=== PATIENT | female | born 1975 | race Caucasian/White ===

== ENCOUNTER 2016-10-05 18:08 | Inpatient (IN) | payer MEDICARE ==
[2016-10-05] MEDS ORDERED: NS 0.9% 1000 ML* 1,000 ML IV ONE (19:45)
[2016-10-05] MEDS ORDERED: Ondansetron INJ* 2 MG/ML VIAL IV ONE ×2 (19:46→23:01)
[2016-10-05] MEDS ORDERED: HYDROmorphone* 1 MG/ML 1 ML SYR IV SLOW PU ONE ×2 (19:46→23:00)
[2016-10-05 20:10] LABS: Hematocrit 42 % (35-47); Hemoglobin 12.9 g/dl (12.0-16.0); Mean Corpuscular HGB Conc 31 g/dl (31-36); Mean Corpuscular Hemoglobin 23 pg (27-31); Mean Corpuscular Volume 74 fL (80-97); Mean Platelet Volume 10 um3 (7.4-10.4); Red Blood Count 5.68 10^6/ul (4.0-5.4); Red Cell Distribution Width 18 % (10.5-15); White Blood Count 13.1 10^3/ul (3.5-10.8)
--- NOTE | 2016-10-05 20:14 | ED ---
Abdominal Pain/Female - HPI Summary HPI Summary: 41F presents with severe periumbilical pain for a day. She has had previous appendectomy, gallbladder removal, hysterectomy. She denies any nausea, vomiting, diarrhea, constipation, flank pain, dysuria, or hematuria. She has never had this pain before. She denies any chest pain or SOB. She has had a stroke previously and is on plavix. She denies any previous bowel obstructions. She admits to a decrease in appetite. She denies any fever. She states her pain is sharp in nature. She has not taken anything for pain. - History of Current Complaint Chief Complaint: EDAbdPain Stated Complaint: ABD PAIN Time Seen by Provider: 10/05/16 19:35 Hx Last Menstrual Period: 08/24/13 Pain Intensity: 8 Allergies/Adverse Reactions: Allergies Allergy/AdvReac Type Severity Reaction Status Date / Time Buprenorphine [From Butrans] Allergy Rash Verified 08/31/16 13:09 Morphine AdvReac Intermediate Nausea Verified 08/31/16 13:09 PMH/Surg Hx/FS Hx/Imm Hx Endocrine/Hematology History: Reports: Hx Anticoagulant Therapy, Hx Anemia - HX OF Denies: Hx Diabetes Cardiovascular History: Denies: Hx Congestive Heart Failure, Hx Hypertension, Hx Pacemaker/ICD GI History: Reports: Hx Gastroesophageal Reflux Disease, Other GI Disorders - Ulcerative colitis History: Denies: Hx Renal Disease Musculoskeletal History: Reports: Hx Back Problems - chronic low back pain S/P L4 TO L5 HEMILAMINECTOMY, Other Musculoskeletal History - spastic left foot/calf Sensory History: Reports: Hx Contacts or Glasses - GLASSES Denies: Hx Hearing Aid Opthamlomology History: Reports: Hx Contacts or Glasses - GLASSES Psychiatric History: Reports: Hx Depression - ON MEDICATION FOR Denies: Hx Panic Disorder - Cancer History Cancer Type, 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 ulnar nerve decompression 2013 at [facility] [place] Hx Anesthesia Reactions: No - Immunization History Date of Tetanus Vaccine: UNK Date of Influenza Vaccine: 2012 Infectious Disease History: No Infectious Disease History: Denies: Hx Clostridium Difficile, Hx Hepatitis, Hx Human Immunodeficiency Virus (HIV), Hx of Known/Suspected MRSA, Hx Shingles, Hx Tuberculosis, Hx Known/ Suspected VRE, Hx Known/Suspected VRSA, History Other Infectious Disease, Traveled Outside the [place] in Last 30 Days - Family History Known Family History: Positive: Hypertension, Other - RA - Social History Alcohol Use: None Alcohol Amount: wine Substance Use Type: Reports: None Substance Use Comment - Amount & Last Used: oxycodone Smoking Status (MU): Former Smoker Type: Cigarettes Amount Used/How Often: 1 PPD X 15 YEARS Have You Smoked in the Last Year: Yes Review of Systems Negative: Fever Negative: Chest Pain Negative: Shortness Of Breath Positive: Abdominal Pain. Negative: Vomiting, Diarrhea, Nausea All Other Systems Reviewed And Are Negative: Yes Physical Exam Triage Information Reviewed: Yes Vital Signs On Initial Exam: Initial Vitals Temp Pulse Resp BP Pulse Ox 98 F 77 16 134/89 100 10/05/16 18:23 10/05/16 18:23 10/05/16 18:23 10/05/16 18:23 10/05/16 18:23 Vital Signs Reviewed: Yes Appearance: Positive: Pain Distress Skin: Positive: Warm, Dry Head/Face: Positive: Normal Head/Face Inspection Eyes: Positive: Normal, Conjunctiva Clear ENT: Positive: Normal ENT inspection, Pharynx normal, TMs normal Respiratory/Lung Sounds: Positive: Clear to Auscultation, Breath Sounds Present Cardiovascular: Positive: Normal, RRR Abdomen Description: Positive: Soft, Other: - moderate tenderness epigastric on exam Bowel Sounds: Positive: Present - [place] Coma Scale Coma Scale Total: 15 Diagnostics - Vital Signs Vital Signs Temp Pulse Resp BP Pulse Ox 10/05/16 19:57 16 10/05/16 18:27 99 F 77 16 134/89 100 10/05/16 18:23 98 F 77 16 134/89 100 - Laboratory Result Diagrams: 10/05/16 19:46 10/05/16 19:46 Lab Statement: Any lab studies that have been ordered have been reviewed, and results considered in the medical decision making process. - CT abd CT Interpretation: Positive (See Comments) - IMPRESSION: 1. NORMAL AORTA. 2. DISTENTION MILD DILATATION OF SMALL BOWEL WITH A TRANSITION POINT TO DECOMPRESSED SMALL BOWEL, CONCERNING FOR EARLY OR PARTIAL SMALL BOWEL OBSTRUCTION. 3. MINIMAL ASCITES. 4. BILIARY DILATATION, PROGRESSED FROM 2003 CT Interpretation Completed By: Radiologist Abdominal Pain Fem Course/Dx - Course Course Of Treatment: 41F presents with severe periumbilical pain for a day. She has had previous appendectomy, gallbladder removal, hysterectomy. She denies any nausea, vomiting, diarrhea, constipation, She has never had this pain before. She denies any chest pain or SOB. She has had a stroke previously and is on plavix. on exam tender in epigastric. good bowel sounds. considered obstruction vs mesenteric ischemia. due to severe pain and history of stroke decided to do CTA to look for clot. CTA shows early obstruction. patient would like to be admitted. discussed with dr galeana who agrees to admit. - Diagnoses Differential Diagnosis: Positive: Bowel Obstruction, Constipation, Other - mesenteric ischemia Provider Diagnoses: Bowel obstruction Discharge - Discharge Plan Condition: Stable Disposition: ADMITTED TO [facility]
[2016-10-05 20:18] LABS: Comments Flag Yes
[2016-10-05 20:19] LABS: Add Diff/Slide Review? Slide Review Added
[2016-10-05 20:25] LABS: Albumin 4.7 g/dL (3.2-5.2); BUN/Creatinine Ratio 18.9 (8-20); Calcium 9.6 mg/dL (8.6-10.3); EGFR African American 110.2 (>60); EGFR Non-African American 85.7 (>60); Globulin 3.5 g/dL (2-4); Potassium 4.1 mmol/L (3.5-5.0); Total Bilirubin 0.5 mg/dL (0.2-1.0); Total Protein 8.2 g/dL (6.4-8.9)
[2016-10-05 20:27] LABS: Troponin I 0.01 ng/mL (<0.04)
[2016-10-05] MEDS ORDERED: Iohexol 350* (CONTRAST) 500 ML MDV IV ONE (20:44)
--- NOTE | 2016-10-05 21:51 | RAD ---
CLINICAL HISTORY: Periumbilical pain COMPARISON: November 12, 2003 TECHNIQUE: Multiple contiguous axial CT scans were obtained of the abdomen and pelvis after the administration of intravenous contrast. Coronal and sagittal multiplanar reformations are submitted for review. Oral contrast was not administered. 3-D volumetric reconstructions of the aorta are also submitted for review FINDINGS: LUNG BASES: The lung bases are clear. LIVER: There is a small hypervascular lesion of the right lobe of liver stable from 2004 consistent with a flash filling hemangioma. BILE DUCTS: There is intrahepatic and extrahepatic biliary dilatation. This has progressed somewhat from the 2004 examination GALLBLADDER: The patient is status post colostomy. PANCREAS: There is mild ectasia of the pancreatic duct without appreciable pancreatic mass SPLEEN: Normal in size and appearance. UPPER GI TRACT: Evaluation of the gastrointestinal tract is limited by incomplete gastric distention. There is post surgical change to the projected tract. SMALL BOWEL AND MESENTERY: There is distention mild dilatation of small bowel. The transition point to decompressed small bowel in the right upper abdomen. COLON: The colon is normal in contour, course, caliber. There is no pericolonic inflammatory change. There is post surgical change to the ascending colon. The appendix is not visualized. ADRENALS: Normal bilaterally. KIDNEYS: The kidneys are normal in shape, size, contour, and axis. There is no hydronephrosis or nephrolithiasis. BLADDER: The bladder is incompletely distended but is grossly normal. PELVIC ORGANS: The uterus and adnexa are grossly normal for technique. AORTA: The aorta is normal. There is no aneurysmal dilatation. There is no intimal flap. The splanchnic vessels are patent. IVC: Unremarkable LYMPH NODES: There is no lymphadenopathy by size criteria. ABDOMINAL WALL: There is a small fat-containing ventral hernia. BONES AND SOFT TISSUES: Mild degenerative changes are noted. OTHER: There is a small amount of ascites IMPRESSION: 1. NORMAL AORTA. 2. DISTENTION MILD DILATATION OF SMALL BOWEL WITH A TRANSITION POINT TO DECOMPRESSED SMALL BOWEL, CONCERNING FOR EARLY OR PARTIAL SMALL BOWEL OBSTRUCTION. 3. MINIMAL ASCITES. 4. BILIARY DILATATION, PROGRESSED FROM 2004
--- NOTE | 2016-10-06 00:26 | HP ---
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 The pain progressed becoming more severe and prompting evaluation. She has never had similar. She has had some nausea and light sweats, but no emesis or F/C. Last BM was 2 days ago and described as normal. She cannot recall last flatus. She has had a gastric bypass , cholecystectomy, appendectomy, section, and fibroidectomy. 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 Clopidogrel Bisulfate [Plavix] 75 mg PO DAILY 02/13/13 Cyanocobalamin [Vitamin B12] 1,000 mcg PO DAILY 02/13/13 Sennosides-Docusate Sodium [Senna/Docusate Sodium] 1 - 2 tab PO DAILY PRN Oxycodone TAB(NF) [Oxycodone HCl 10 MG] 10 mg PO TID PRN 04/19/13 Atorvastatin Calcium [Lipitor] 10 mg PO BEDTIME 09/20/13 Folic Acid 1 mg PO DAILY 04/05/14 Iron Combinations [Iron Complex] 1 cap PO DAILY 01/09/15 Cyclobenzaprine TAB* [Flexeril TAB*] 5 mg PO TID PRN 04/22/15 Adderall 10 mg- 20 mg PO TID 11/12/15 Gabapentin CAP(*) [Neurontin 100 mg CAP(*)] 400 mg PO TID 05/04/16 Trazodone HCl 100 mg PO BEDTIME PRN 05/04/16 Allergies Buprenorphine [From Butrans] Allergy (Verified 08/31/16 13:09) Rash Morphine Adverse Reaction (Intermediate, Verified 08/31/16 13:09) Nausea PSurgHx tonsillectomy cholecystectomy gastric bypass appendectomy section fibroidectomy SocHx: quit cigarettes 2012, no alcohol or recreational drugs; , lives with her ; formerly worked at [employer] on [employer]; full code status FamHx: Mother: alive at 69, GERD, HTN; Father: alive at 70, DM2, HTN, HLD ROS: as above, otherwise reviewed and all were negative Constitutional: NAD, normally developed, overweight white female vitals: Vital Signs Temp 36.6 C 10/06/16 00:35 Pulse 90 10/06/16 00:35 Resp 16 10/06/16 00:35 BP 117/82 10/06/16 00:35 Pulse Ox 99 10/05/16 23:13 Intake & Output 10/05/16 10/05/16 10/06/16 11:59 23:59 11:59 Intake Total 1000 Balance 1000 Weight 72.575 kg Intake: IV Fluids 1000 HEENM: atraumatic; sclera/conjunctiva: non-icteric/clear; hearing: clinically intact; oropharynx: clear, mucosa moist Neck: soft tissue: non-tender; thyroid: normal Pulmonary: clear to auscultation bilaterally, good aeration, no accessory muscle use CV: RR/RR, normal S1S2, no carotid bruit, no jugular venous distention, 2+ B DP/ PT, no edema Abdominal: soft, non-distended, diffusely mildly tender, no rebound/guarding/ rigidity, hypoactive bowel sounds, no hepatosplenomegaly or masses, no costovertebral angle tenderness Musculoskeletal: general: grossly intact Integumental: excoriative lesions R anterior shoulder & face Psychiatric orientation: AA&O to PPS affect: calm/flat mood: cooperative eye contact: fair content: reliable responses: timely insight: good Testing: Lab Results 10/05/16 10/05/16 Range/Units 19:46 19:46 WBC 13.1 H (3.5-10.8) 10^3/ul RBC 5.68 H (4.0-5.4) 10^6/ul Hgb 12.9 (12.0-16.0) g/dl Hct 42 (35-47) % MCV 74 L (80-97) fL MCH 23 L (27-31) pg MCHC 31 (31-36) g/dl RDW 18 H (10.5-15) % Plt Count 273 (150-450) 10^3/ul MPV 10 (7.4-10.4) um3 Neut % (Auto) 86.7 H (38-83) % Lymph % (Auto) 6.8 L (25-47) % Treasure % (Auto) 5.2 (1-9) % Eos % (Auto) 1.0 (0-6) % Baso % (Auto) 0.3 (0-2) % Absolute Neuts (auto) 11.3 H (1.5-7.7) 10^3/ul Absolute Lymphs (auto) 0.9 L (1.0-4.8) 10^3/ul Absolute Monos (auto) 0.7 (0-0.8) 10^3/ul Absolute Eos (auto) 0.1 (0-0.6) 10^3/ul Absolute Basos (auto) 0 (0-0.2) 10^3/ul Absolute Nucleated RBC 0.05 10^3/ul Nucleated RBC % 0.4 Sodium 132 L (133-145) mmol/L Potassium 4.1 (3.5-5.0) mmol/L Chloride 100 L (101-111) mmol/L Carbon Dioxide 23 (22-32) mmol/L Anion Gap 9 (2-11) mmol/L BUN 14 (6-24) mg/dL Creatinine 0.74 (0.51-0.95) mg/dL Est GFR ( Amer) 110.2 (>60) Est GFR (Non-Af Amer) 85.7 (>60) BUN/Creatinine Ratio 18.9 (8-20) Glucose 120 H (70-100) mg/dL Calcium 9.6 (8.6-10.3) mg/dL Total Bilirubin 0.50 (0.2-1.0) mg/dL AST 19 (13-39) U/L ALT 23 (7-52) U/L Alkaline Phosphatase 90 (34-104) U/L Troponin I 0.01 (<0.04) ng/mL C-React Prot High Sens 0.67 mg/L Total Protein 8.2 (6.4-8.9) g/dL Albumin 4.7 (3.2-5.2) g/dL Globulin 3.5 (2-4) g/dL Albumin/Globulin Ratio 1.3 (1-3) Lipase 13 (11.0-82.0) U/L Beta HCG, Quant 0.60 mIU/mL CTA abd/pel, personally reviewed: IMPRESSION: 1. NORMAL AORTA. 2. DISTENTION MILD DILATATION OF SMALL BOWEL WITH A TRANSITION POINT TO DECOMPRESSED SMALL BOWEL, CONCERNING FOR EARLY OR PARTIAL SMALL BOWEL OBSTRUCTION. 3. MINIMAL ASCITES. 4. 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
[2016-10-06] MEDS ORDERED: Albuterol 2.5 MG/3 ML NEB.SOL* (0.083%) INH PRN (00:34)
[2016-10-06] MEDS ORDERED: Acetaminophen TAB* 325 MG PO PRN (00:34)
[2016-10-06] MEDS: HYDROmorphone* 1 MG/ML 1 ML SYR IV PRN ×7 (01:14→22:58)
[2016-10-06] MEDS: Omeprazole CAP* 20 MG PO SCH (06:02)
[2016-10-06 06:05] LABS: Hematocrit 34 % (35-47); Hemoglobin 10.9 g/dl (12.0-16.0); Mean Corpuscular HGB Conc 32 g/dl (31-36); Mean Corpuscular Hemoglobin 23 pg (27-31); Mean Platelet Volume 10 um3 (7.4-10.4); Red Cell Distribution Width 17 % (10.5-15); White Blood Count 9.7 10^3/ul (3.5-10.8)
[2016-10-06 06:10] LABS: Comments Flag Yes
[2016-10-06 06:11] LABS: Mean Corpuscular Volume 73 fL (80-97)
[2016-10-06 06:24] LABS: BUN/Creatinine Ratio 15.4 (8-20); Calcium 8.2 mg/dL (8.6-10.3); EGFR African American 127.9 (>60); EGFR Non-African American 99.5 (>60); Potassium 4.5 mmol/L (3.5-5.0)
--- NOTE | 2016-10-06 08:47 | PN ---
Subjective Date of Service: 10/06/16 Interval History: Ms. Mejia continues to report pain in her right lower quadrant. She denies other complaint including chest pain or SOB. Objective Active Medications: Acetaminophen (Tylenol Tab*) 650 mg PO Q6H PRN Albuterol (Ventolin 2.5 Mg/3 Ml Neb.Joan*) 2.5 mg INH Q2H PRN Heparin Sodium (Porcine) (Heparin Vial(*)) 5,000 units SUBCUT Q8HR MARK Hydromorphone HCl (Dilaudid Iv*) 0.5 mg IV Q2H PRN Sodium Chloride (Ns 0.9% 1000 Ml*) 1,000 mls @ 125 mls/hr IV PER RATE MARK Lorazepam (Ativan Inj*) 0.5 mg IV BEDTIME PRN Omeprazole (Prilosec Cap*) 20 mg PO DAILY@0600 MARK Ondansetron HCl (Zofran Inj*) 4 mg IV Q6H PRN Vital Signs 10/06/16 10/06/16 10/06/16 00:35 01:03 01:14 Temperature 98 F 99.0 F Pulse Rate 90 55 Respiratory 16 16 13 Rate Blood Pressure 117/82 144/69 (mmHg) O2 Sat by Pulse 100 Oximetry 10/06/16 10/06/16 10/06/16 01:16 01:28 02:12 Temperature 99 F Pulse Rate 55 Respiratory 16 16 15 Rate Blood Pressure 144/69 (mmHg) O2 Sat by Pulse 100 Oximetry 10/06/16 10/06/16 10/06/16 03:21 04:54 05:41 Temperature 98.2 F Pulse Rate 62 Respiratory 16 15 15 Rate Blood Pressure 121/73 (mmHg) O2 Sat by Pulse 99 Oximetry 10/06/16 07:59 Temperature Pulse Rate Respiratory 18 Rate Blood Pressure (mmHg) O2 Sat by Pulse Oximetry Oxygen Devices in Use Now: None Appearance: Female lying in bed in NAD Eyes: No Scleral Icterus Ears/Nose/Mouth/Throat: Mucous Membranes Moist Neck: Trachea Midline Respiratory: Symmetrical Chest Expansion and Respiratory Effort, Clear to Auscultation Cardiovascular: NL Sounds; No Murmurs; No JVD, No Edema Abdominal: - - Soft, nontender, BS +, non distended Lymphatic: No Cervical Adenopathy Extremities: No Edema Skin: No Rash or Ulcers Neurological: Alert and Oriented x 3, NL Muscle Strength and Tone Nutrition: - - NPO Result Diagrams: 10/06/16 05:51 10/06/16 05:51 Assess/Plan/Problems-Billing Assessment: Mr. Mejia is a 41 yo female with a PMH of CVA, chronic low back pain and hyperlipidemia who was admitted on 10/06/16 with SBO. - Patient Problems (1) SBO (small bowel obstruction) Comment: - SBO noted on CTA but will need CT with oral contrast for better assessment. - Appreciate surgical consultation. - NPO. - Pain meds prn. 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 - Hold plavix for now given possibility of need for surgery. (3) Hyperlipidemia Comment: - Hold statin while NPO. (4) DVT prophylaxis Comment: - Heparin SQ. (5) Full code status Status and Disposition: Inpatient with expected LOS > 2 days. Anticipate discharge to home when medically stable.
[2016-10-06] MEDS: NS 0.9% 1000 ML* 1,000 ML IV SCH ×2 (09:19→17:37)
[2016-10-06] MEDS: Ondansetron INJ* 2 MG/ML VIAL IV PRN (15:35)
[2016-10-06] MEDS ORDERED: Iohexol 300* (CONTRAST) 10 ML SDV IV ONE (16:53)
[2016-10-06] MEDS ORDERED: HYDROmorphone* 1 MG/ML 1 ML SYR IV SLOW PU ONE ×2 (17:25→18:07)
--- NOTE | 2016-10-06 18:09 | RAD ---
CLINICAL HISTORY: Abdominal pain COMPARISON: CTA dated October 05, 2016 TECHNIQUE: Multiple contiguous axial CT scans were obtained of the abdomen and pelvis after the administration of intravenous contrast. Coronal and sagittal multiplanar reformations are submitted for review. Oral contrast was administered. Delayed images were obtained through the abdomen and pelvis. FINDINGS: LUNG BASES: The lung bases are clear. LIVER: The liver is normal in shape, size, contour, and attenuation. BILE DUCTS: Again noted is intrahepatic and extrahepatic biliary dilatation. GALLBLADDER: The gallbladder is not visualized. Surgical clips are noted in the gallbladder fossa. PANCREAS: There is ectasia of the pancreatic duct without appreciable pancreatic mass. SPLEEN: Normal in size and appearance. UPPER GI TRACT: Evaluation of the gastrointestinal tract is limited by incomplete gastric distention. There is post surgical change to the projected tract. SMALL BOWEL AND MESENTERY: Again noted is diffuse distention and mild dilatation of small bowel with transition point to decompressed small bowel in the right upper abdomen. COLON: There are paracolic varices in the right upper quadrant near the hepatic flexure. There is moderate amount stool within the colon. ADRENALS: Normal bilaterally. KIDNEYS: The kidneys are normal in shape, size, contour, and axis. There is no hydronephrosis or nephrolithiasis. BLADDER: The bladder is smooth in contour. PELVIC ORGANS: The uterus and adnexa are grossly normal for technique. AORTA: The aorta is normal. IVC: Unremarkable LYMPH NODES: There is no lymphadenopathy by size criteria. ABDOMINAL WALL: There is no evidence for abdominal wall hernia. BONES AND SOFT TISSUES: Degenerative changes are noted. There is postsurgical change lower lumbar spine OTHER: There is a small amount of ascites IMPRESSION: 1. AGAIN NOTED IS SMALL BOWEL DILATATION WITH A TRANSITION POINT TO DECOMPRESSED SMALL BOWEL IN THE RIGHT UPPER ABDOMEN CONSISTENT WITH SMALL BOWEL OBSTRUCTION. 2. THERE ARE PARACOLIC VARICES IN THE RIGHT UPPER QUADRANT ALONG THE HEPATIC FLEXURE. 3. AGAIN NOTED IS BILIARY DILATATION. 4. SMALL AMOUNT OF ASCITES
--- NOTE | 2016-10-06 20:31 | CONS ---
CC: Elijah Thompson MD* CONSULTATION REPORT: DATE OF CONSULT: 10/06/16 REASON FOR CONSULT: Small bowel obstruction. HISTORY OF PRESENT ILLNESS: This is a 41-year-old female, known to me from previous laparoscopic gastric bypass in 2003. She has a history also significant for left-sided stroke with residual deficit. She reports that she had her last bowel movement 2 days ago and does not remember the last time she passed flatus. She began having sharp right lower quadrant abdominal pain after eating yesterday late morning. She had no similar episodes in the past. She had nausea, no emesis and no fevers or chills. She was seen and evaluated at [facility] and she had undergone a CTA abdomen and pelvis, which demonstrated findings of a mildly dilated small bowel with transition point to decompressed small bowel in the right upper quadrant and findings were concerning for early or partial small bowel obstruction. She had minimal ascites, has some biliary dilatation as well. She was admitted to the hospitalist service and she has remained afebrile. Initial white blood cell count of 13.1 has decreased to 9.7. A surgical consultation was requested. PAST MEDICAL HISTORY: Significant for history of lower back pain, hyperlipidemia, and status post CVA. PAST SURGICAL HISTORY: Significant for laparoscopic gastric bypass, laparoscopic cholecystectomy, laparoscopic appendectomy, lumbar laminectomy, section, uterine myomectomy, tonsillectomy. MEDICATIONS: Home medications include: 1. Trazodone. 2. Senna/docusate sodium. 3. Oxycodone 10 mg t.i.d. p.r.n. 4. Iron complex. 5. Neurontin 400 mg p.o. t.i.d. 6. Folate 1 mg daily. 7. Flexeril 5 mg t.i.d. p.r.n. 8. Vitamin B12 1000 mcg daily. 9. Plavix 75 mg daily. 10. Lipitor 10 mg daily. 11. Adderall 20 mg t.i.d. Currently she is receiving heparin, Omeprazole, saline, and p.r.n. Dilaudid, the last she took was at 10:30 this morning. ALLERGIES: BUPRENORPHINE, she reports a rash related to the adhesive from that patch, and MORPHINE which caused nausea. FAMILY HISTORY: Mother and father have hypertension. Father has diabetes. SOCIAL HISTORY: She is , lives with her . She is nonsmoker. Denies alcohol or drug use. REVIEW OF SYSTEMS: Ten-point review of systems was completed and significant for the above mentioned issues, otherwise negative. PHYSICAL EXAMINATION: A 41-year-old female, lying in the hospital bed, in no acute distress. Head: Normocephalic, atraumatic. Sclerae anicteric. Her neck is symmetrical. Trachea is midline. Lungs are clear to auscultation bilaterally. Heart is regular. Abdomen has well-healed scars. Bowel sounds are diminished. It is nondistended, soft, with tenderness in the right mid abdomen. There is no rebound or guarding on palpation, no masses or hernias. Extremities are warm. DIAGNOSTIC STUDIES/LAB DATA: WBC is as above. Chemistry is normal, except calcium of 8.2. CT images were reviewed from 10/05/16. IMPRESSION: A 41-year-old female, status post laparoscopic gastric bypass in 2003, status post CVA, on Plavix, now with partial or early small bowel obstruction, there is concern for possible internal hernia. She does not have a surgical abdomen at this time. PLAN/RECOMMENDATIONS: I discussed the findings with the patient as well as with Judy Dempsey NP. We continue to rest her bowel and provide IV fluid for hydration. I would like her CT scan to be repeated with oral contrast to better assess the bowel. We will continue to follow with you. [id number]/CPS #: [id number] MTDD
[2016-10-07] MEDS: HYDROmorphone* 1 MG/ML 1 ML SYR IV PRN ×6 (02:04→12:37)
[2016-10-07 05:46] LABS: BUN/Creatinine Ratio 14.3 (8-20); EGFR African American 177.3 (>60); EGFR Non-African American 137.8 (>60)
[2016-10-07] MEDS: Omeprazole CAP* 20 MG PO SCH (06:27)
[2016-10-07] MEDS: Heparin VIAL(*) 5000 UNITS/ML VIAL (FIVE THOUSAND) SUBCUT SCH ×3 (06:27→22:30)
[2016-10-07] MEDS: NS 0.9% 1000 ML* 1,000 ML IV SCH (10:22)
--- NOTE | 2016-10-07 10:47 | PN ---
Progress Note - Progress Note Date of Service: 10/07/16 SOAP: Subjective: She feels the same. Pain continues. No flatus/BM. Objective: Vital Signs Temp 98.1 F 10/07/16 07:13 Pulse 63 10/07/16 07:13 Resp 18 10/07/16 10:40 BP 128/80 10/07/16 07:13 Pulse Ox 97 10/07/16 07:13 Mild discomfort. Abd: ND, soft, tender R side. Intake & Output 10/06/16 10/07/16 10/07/16 18:59 06:59 18:59 Intake Total 8134 520 1780 Output Total 900 400 800 Balance 455 97 400 Weight 160 lb 160 lb Intake: IV Fluids 4367 474 0298 NS (0.9%) 0257 786 1880 Oral 0 0 0 Output: Urine 900 400 800 Other: # Bowel Movements 0 CT abd/pel images reviewed. Ascites, fluid filled gastric remnant and dilated sm bowel with crossing mesenteric vessels noted. Assessment: SBO, s/p LRYGB 2003, concerning for internal hernia. Plan: D/W patient the concerns and have recommended diagnostic laparotomy, possible laparotomy for further evaluation and treatment. Dr. Vick is available to take her to the OR this afternoon and she is agreeable to the plan. Strict NPO.
--- NOTE | 2016-10-07 13:50 | PN ---
Subjective Date of Service: 10/07/16 Interval History: Ms. Mejia states that she continues to have lower abdominal pain but it is manageable with the current regimen. She denies other complaint including chest pain, SOB, or nausea. Objective Active Medications: Acetaminophen (Tylenol Tab*) 650 mg PO Q6H PRN Albuterol (Ventolin 2.5 Mg/3 Ml Neb.Joan*) 2.5 mg INH Q2H PRN Heparin Sodium (Porcine) (Heparin Vial(*)) 5,000 units SUBCUT Q8HR MARK Hydromorphone HCl (Dilaudid Iv*) 1 mg IV Q2H PRN Sodium Chloride (Ns 0.9% 1000 Ml*) 1,000 mls @ 125 mls/hr IV PER RATE MARK Lorazepam (Ativan Inj*) 0.5 mg IV BEDTIME PRN Omeprazole (Prilosec Cap*) 20 mg PO DAILY@0600 MRAK Ondansetron HCl (Zofran Inj*) 4 mg IV Q6H PRN Vital Signs 10/06/16 10/06/16 10/06/16 15:27 16:21 17:21 Temperature 99.1 F Pulse Rate 49 Respiratory 15 18 18 Rate Blood Pressure 147/78 (mmHg) O2 Sat by Pulse 100 Oximetry 10/06/16 10/06/16 10/06/16 17:28 17:29 18:28 Temperature 97.6 F Pulse Rate Respiratory 18 16 Rate Blood Pressure (mmHg) O2 Sat by Pulse Oximetry 10/06/16 10/06/16 10/06/16 18:49 19:35 19:40 Temperature 98.5 F Pulse Rate 51 Respiratory 16 16 20 Rate Blood Pressure 146/90 (mmHg) O2 Sat by Pulse 98 Oximetry 10/06/16 10/06/16 10/06/16 19:47 20:36 22:58 Temperature Pulse Rate Respiratory 16 18 16 Rate Blood Pressure (mmHg) O2 Sat by Pulse Oximetry 10/06/16 10/06/16 10/07/16 23:22 23:43 02:04 Temperature 98.6 F Pulse Rate 52 Respiratory 16 13 16 Rate Blood Pressure 121/70 (mmHg) O2 Sat by Pulse 97 Oximetry 10/07/16 10/07/16 10/07/16 03:04 03:49 04:32 Temperature 98.4 F Pulse Rate 57 Respiratory 14 16 20 Rate Blood Pressure 117/78 (mmHg) O2 Sat by Pulse 98 Oximetry 10/07/16 10/07/16 10/07/16 05:25 06:32 07:13 Temperature 98.1 F Pulse Rate 63 Respiratory 16 15 17 Rate Blood Pressure 128/80 (mmHg) O2 Sat by Pulse 97 Oximetry 10/07/16 10/07/16 10/07/16 07:32 08:00 08:42 Temperature Pulse Rate Respiratory 18 18 18 Rate Blood Pressure (mmHg) O2 Sat by Pulse Oximetry 10/07/16 10/07/16 10/07/16 09:42 10:40 11:36 Temperature 97.6 F Pulse Rate 55 Respiratory 16 18 16 Rate Blood Pressure 129/75 (mmHg) O2 Sat by Pulse 100 Oximetry 10/07/16 10/07/16 10/07/16 11:40 12:37 13:32 Temperature Pulse Rate Respiratory 18 18 18 Rate Blood Pressure (mmHg) O2 Sat by Pulse Oximetry Oxygen Devices in Use Now: None Appearance: Female up ambulating in room in NAD Eyes: No Scleral Icterus Ears/Nose/Mouth/Throat: Mucous Membranes Moist Neck: Trachea Midline Respiratory: Symmetrical Chest Expansion and Respiratory Effort, Clear to Auscultation Cardiovascular: NL Sounds; No Murmurs; No JVD, No Edema Abdominal: NL Sounds; No Tenderness; No Distention Lymphatic: No Cervical Adenopathy Extremities: No Edema Skin: No Rash or Ulcers Neurological: Alert and Oriented x 3, NL Muscle Strength and Tone Nutrition: Taking PO's Result Diagrams: 10/06/16 05:51 10/07/16 04:41 Assess/Plan/Problems-Billing Assessment: Mr. Mejia is a 41 yo female with a PMH of CVA, chronic low back pain and hyperlipidemia who was admitted on 10/06/16 with SBO. - Patient Problems (1) SBO (small bowel obstruction) Comment: - Continued pain. - CT with contrast confirmed SBO. - Appreciate surgical consultation, plan for OR today. - NPO. - Pain meds prn. 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 - Hold plavix for now given need for surgery today. (3) Hyperlipidemia Comment: - Hold statin while NPO. (4) DVT prophylaxis Comment: - Heparin SQ. (5) Full code status Status and Disposition: Inpatient with expected LOS > 2 days. Anticipate discharge to home when medically stable.
[2016-10-07] MEDS ORDERED: Buffered Lidocaine 0.9% SYRIN* 5 ML/SYR SYRINGE ONE (13:56)
[2016-10-07] MEDS ORDERED: ceFAZolin 2 GM PREMIX(*) 2 GM/50 ML BAG IVPB ONE (13:56)
[2016-10-07] MEDS ORDERED: Lidocaine 2% PF * 5 ML VIAL ONE (14:03)
[2016-10-07] MEDS ORDERED: Ketorolac INJ* 30 MG/ML 1 ML VIAL ONE (14:03)
[2016-10-07] MEDS ORDERED: Ondansetron INJ* 2 MG/ML VIAL ONE (14:03)
[2016-10-07] MEDS ORDERED: Dexamethasone IV* 4 MG/ML 1 ML (4 MG) ONE (14:03)
[2016-10-07] MEDS ORDERED: Propofol* 10 MG/ML 20 ML BTL IV PUSH ONE (14:03)
[2016-10-07] MEDS ORDERED: fentaNYL* 50 MCG/ML 5 ML VIAL (250 MCG VIAL) ONE ×2 (14:04→17:21)
[2016-10-07] MEDS ORDERED: Midazolam* 1 MG/ML 5 ML VIAL (5 MG) ONE (14:04)
[2016-10-07] MEDS ORDERED: KETAMINE HCL* 50 MG/ML 10 ML VIAL ONE (14:04)
[2016-10-07] MEDS ORDERED: Cisatracurium* 2 MG/ML MDV 5 ML ONE ×2 (14:04→17:21)
[2016-10-07] MEDS ORDERED: Famotidine IV* 10 MG/ML 2 ML (20 mg) IV ONE (14:59)
[2016-10-07] MEDS ORDERED: Buffered Lidocaine 0.9% SYRIN* 5 ML/SYR SYRINGE INTRADERM ONE (14:59)
[2016-10-07] MEDS ORDERED: Famotidine IV* 10 MG/ML 2 ML (20 mg) ONE (15:01)
[2016-10-07] MEDS ORDERED: fentaNYL* 50 MCG/ML 2 ML VIAL (100 MCG VIAL) ONE ×3 (15:13→20:11)
[2016-10-07] MEDS ORDERED: Bupivacaine 0.25% EPI 200,000* 30 ML SDV ONE (15:48)
[2016-10-07] MEDS ORDERED: EPHEDrine (Pressors)* 50 MG/ML VIAL ONE (16:19)
[2016-10-07] MEDS ORDERED: Ondansetron INJ* 2 MG/ML VIAL IV PRN (17:01)
[2016-10-07] MEDS ORDERED: HYDROmorphone* 1 MG/ML 1 ML SYR IV PRN (17:01)
[2016-10-07] MEDS ORDERED: DiMENhydriNATE IV* 50 MG/ML VIAL IV PUSH PRN (17:01)
[2016-10-07] MEDS ORDERED: Glycopyrrolate IV* 0.2 MG/ML 1 ML VIAL ONE (18:50)
[2016-10-07] MEDS ORDERED: Neostigmine Methylsulfate* 2 MG/2 ML SYRINGE ONE (18:50)
--- NOTE | 2016-10-07 19:06 | PN ---
Progress Note - Progress Note Date of Service: 10/07/16 Note: Brief Operative Note Date: 10/07/2016 Pre-operative diagnosis: Small bowel obstruction Post-operative diagnosis: Internal hernia Procedure: Diagnostic laparoscopy, laparotomy, repair internal hernia, enterotomy for removal of bezoar. Surgeon: Cottonseed Meat Presser: Iliana ROB, Anthony Fernandez PARasheedS Anesthesia: General EBL: 50 mL Fluid: 3000 mL LR Drain: none Catheter: Rincon to gravity Finding: See dictated op note
[2016-10-07] MEDS ORDERED: Metoclopramide IV* 5 MG/ML 2 ML VIAL IV PRN (19:13)
[2016-10-07] MEDS ORDERED: HYDROmorphone PCA* 20 MG/20 ML PCA.SYRING ONE (19:34)
[2016-10-07] MEDS: HYDROmorphone PCA* 20 MG/20 ML PCA.SYRING PCA SCH (19:39)
[2016-10-07] MEDS ORDERED: HYDROmorphone* 1 MG/ML 1 ML SYR ONE (19:45)
[2016-10-07] MEDS: fentaNYL* 50 MCG/ML 2 ML VIAL (100 MCG VIAL) IV PRN ×4 (19:46→20:23)
[2016-10-07] MEDS ORDERED: ceFAZolin 1 GM in Dextrose (*) 1 GM/50 ML BAG IVPB SCH (20:00)
[2016-10-07] MEDS: Pantoprazole IV* 40 MG IV SCH (21:46)
[2016-10-07] MEDS: metroNIDAZOLE IV 500 MG/100ML* 500 MG/100 ML BAG IVPB SCH (21:49)
[2016-10-07] MEDS: ceFAZolin 1 GM in Dextrose (*) 1 GM/50 ML BAG IVPB SCH (23:57)
[2016-10-08] MEDS: metroNIDAZOLE IV 500 MG/100ML* 500 MG/100 ML BAG IVPB SCH (04:43)
[2016-10-08 05:50] LABS: Hematocrit 33 % (35-47); Hemoglobin 10.5 g/dl (12.0-16.0); Mean Corpuscular HGB Conc 32 g/dl (31-36); Mean Corpuscular Hemoglobin 23 pg (27-31); Mean Platelet Volume 10 um3 (7.4-10.4); Red Blood Count 4.52 10^6/ul (4.0-5.4); Red Cell Distribution Width 18 % (10.5-15); White Blood Count 9.2 10^3/ul (3.5-10.8)
[2016-10-08 05:51] LABS: Comments Flag Yes; Mean Corpuscular Volume 73 fL (80-97)
[2016-10-08] MEDS: Heparin VIAL(*) 5000 UNITS/ML VIAL (FIVE THOUSAND) SUBCUT SCH ×3 (06:02→23:02)
[2016-10-08 06:06] LABS: BUN/Creatinine Ratio 21.8 (8-20); Calcium 7.7 mg/dL (8.6-10.3); EGFR African American 155.1 (>60); EGFR Non-African American 120.6 (>60); Magnesium 1.4 mg/dL (1.9-2.7); Potassium 4.1 mmol/L (3.5-5.0)
[2016-10-08] MEDS: NS 0.9% 1000 ML* 1,000 ML IV SCH ×3 (07:34→23:01)
[2016-10-08] MEDS: ceFAZolin 1 GM in Dextrose (*) 1 GM/50 ML BAG IVPB SCH (07:36)
[2016-10-08] MEDS: LORazepam INJ* 2 MG/ML 1 ML VIAL IV PRN (10:09)
[2016-10-08] MEDS ORDERED: NS 0.9% 1000 ML* 1,000 ML IV ONE ×2 (12:25→23:28)
[2016-10-08] MEDS ORDERED: Magnesium Sulfate 2 GM IV* 2 GM/50 ML BAG IVPB ONE (12:35)
--- NOTE | 2016-10-08 12:35 | PN ---
Progress Note - Progress Note Date of Service: 10/08/16 Note: Surgery Progress: S: POD #1. c/o pain, primarily when up OOB. Using EMERGENCY ROOM ORDERLY w/ good results when she' s in bed; asking if she can have a bolus for when she gets up. No N/V. No flatus or stool. Not interested in eating or drinking at this point. Current Medications Acetaminophen (Tylenol Tab*) 650 mg PO Q6H PRN PRN Reason: FEVER/PAIN Albuterol (Ventolin 2.5 Mg/3 Ml Neb.Joan*) 2.5 mg INH Q2H PRN PRN Reason: SOB/WHEEZING Heparin Sodium (Porcine) (Heparin Vial(*)) 5,000 units SUBCUT Q8HR MARK Last Admin: 10/08/16 06:02 Dose: 5,000 units Hydromorphone HCl (Dilaudid Iv*) 1 mg IV SLOW PU Q4H PRN PRN Reason: PAIN Hydromorphone HCl (Dilaudid College Archivist*) 20 mg in 20 mls @ 0 mls/hr EMERGENCY ROOM ORDERLY .change Q24H MARK; Per Protocol PRN Reason: Protocol Last Admin: 10/07/16 19:39 Dose: 0.3 mls/hr Sodium Chloride (Ns 0.9% 1000 Ml*) 1,000 mls @ 125 mls/hr IV PER RATE MARK Last Admin: 10/08/16 07:34 Dose: 125 mls/hr Sodium Chloride (Ns 0.9% 1000 Ml*) 1,000 mls @ 1,000 mls/hr IV .PER RATE ONE Stop: 10/08/16 13:24 Ketorolac Tromethamine (Toradol Inj*) 30 mg IV PUSH Q6H MARK Lorazepam (Ativan Inj*) 0.5 mg IV BEDTIME PRN PRN Reason: SLEEP Last Admin: 10/08/16 10:09 Dose: 0.5 mg Lorazepam (Ativan Tab(*)) 0.5 mg PO Q6H PRN PRN Reason: ANXIETY Metoclopramide HCl (Reglan Iv*) 10 mg IV Q6H PRN PRN Reason: NAUSEA/VOMITING Ondansetron HCl (Zofran Inj*) 4 mg IV Q6H PRN PRN Reason: NAUSEA Last Admin: 10/06/16 15:35 Dose: 4 mg Pantoprazole Sodium (Protonix Iv*) 40 mg IV Q24H MARK Last Admin: 10/07/16 21:46 Dose: 40 mg O: Vital Signs - 8 hr 10/08/16 10/08/16 10/08/16 06:00 07:37 08:00 Temperature 97.6 F Pulse Rate 93 Respiratory 16 16 16 Rate Blood Pressure 110/71 (mmHg) O2 Sat by Pulse 97 98 98 Oximetry 10/08/16 10/08/16 10/08/16 10:00 10:09 10:21 Temperature 97.9 F Pulse Rate 114 Respiratory 16 18 22 Rate Blood Pressure 127/68 (mmHg) O2 Sat by Pulse 94 94 Oximetry 10/08/16 11:09 Temperature Pulse Rate Respiratory 18 Rate Blood Pressure (mmHg) O2 Sat by Pulse Oximetry Intake and Output Last 24 Hours 10/06/16 10/07/16 10/08/16 10/09/16 06:59 06:59 06:59 06:59 Intake Total 1652 1852 5168 1016 Output Total 1300 1205 Balance 9999 444 7044 1016 Weight 160 lb 160 lb 160 lb Intake: IV Fluids 1637 1852 5168 1016 ABX - CEFAZOLIN 50 ABX - FLAGYL 200 NS (0.9%) 637 1852 1768 1016 NS 50ML, Cefazolin 2G 50 lr 3100 Oral 15 0 0 Output: Urine 1300 800 Rincon 355 Estimated Blood Loss 50 Other: # Bowel Movements 0 HEENT: mm dry Heart: mild tachy Lungs: clear upper wilkins; decreased at bases Abd: quiet; min distension; dsgs clean and dry; soft; mild to moderate tenderness to pal; Extr: no edema; SCDs on Labs: Laboratory Tests 10/08/16 10/08/16 05:44 05:44 WBC 9.2 Hgb 10.5 L Sodium 133 Potassium 4.1 Chloride 106 Carbon Dioxide 24 Anion Gap 3 BUN 12 Creatinine 0.55 Magnesium 1.4 L A: s/p laparotomy; repair internal hernia; removal of SB bezoar appears to still be dry; hypomagnesemia P: pain control replete Mg Toradol dilaudid bolus prn when getting up
[2016-10-08] MEDS: Ketorolac INJ* 30 MG/ML 1 ML VIAL IV PUSH SCH ×2 (12:43→18:31)
[2016-10-08] MEDS: HYDROmorphone* 1 MG/ML 1 ML SYR IV SLOW PU PRN ×2 (14:32→21:10)
[2016-10-08] MEDS: HYDROmorphone PCA* 20 MG/20 ML PCA.SYRING PCA SCH (15:49)
--- NOTE | 2016-10-08 17:37 | PN ---
Subjective Date of Service: 10/08/16 Interval History: Ms. Mejia states that she is feeling reasonably well this afternoon. She does have abdominal pain but states that it is well controlled on the current pain medication regimen. She denies other complaint including chest pain, SOB, or nausea. She has been up ambulating on the unit with nursing staff. Objective Active Medications: Acetaminophen (Tylenol Tab*) 650 mg PO Q6H PRN Albuterol (Ventolin 2.5 Mg/3 Ml Neb.Joan*) 2.5 mg INH Q2H PRN Heparin Sodium (Porcine) (Heparin Vial(*)) 5,000 units SUBCUT Q8HR MARK Hydromorphone HCl (Dilaudid Iv*) 1 mg IV SLOW PU Q4H PRN Hydromorphone HCl (Dilaudid Referral Management Liaison*) 20 mg in 20 mls @ 0 mls/hr GROUP INSURANCE SPECIALIST .change Q24H MARK; Per Protocol Sodium Chloride (Ns 0.9% 1000 Ml*) 1,000 mls @ 125 mls/hr IV PER RATE MARK Ketorolac Tromethamine (Toradol Inj*) 30 mg IV PUSH Q6H MARK Lorazepam (Ativan Inj*) 0.5 mg IV BEDTIME PRN Lorazepam (Ativan Tab(*)) 0.5 mg PO Q6H PRN Metoclopramide HCl (Reglan Iv*) 10 mg IV Q6H PRN Ondansetron HCl (Zofran Inj*) 4 mg IV Q6H PRN Pantoprazole Sodium (Protonix Iv*) 40 mg IV Q24H [facility] Vital Signs 10/07/16 10/07/16 10/07/16 19:12 19:15 19:17 Temperature 97.0 F Pulse Rate 52 45 Respiratory 16 16 14 Rate Blood Pressure 123/87 133/77 (mmHg) O2 Sat by Pulse 98 100 100 Oximetry 10/07/16 10/07/16 10/07/16 19:20 19:25 19:30 Temperature Pulse Rate 45 55 57 Respiratory 16 17 20 Rate Blood Pressure 131/85 147/80 133/96 (mmHg) O2 Sat by Pulse 100 100 99 Oximetry 10/07/16 10/07/16 10/07/16 19:39 19:45 19:46 Temperature Pulse Rate 54 Respiratory 15 17 16 Rate Blood Pressure 141/89 (mmHg) O2 Sat by Pulse 99 Oximetry 10/07/16 10/07/16 10/07/16 19:49 20:00 20:11 Temperature Pulse Rate 62 Respiratory 17 13 12 Rate Blood Pressure 141/80 (mmHg) O2 Sat by Pulse 99 Oximetry 10/07/16 10/07/16 10/07/16 20:15 20:23 20:30 Temperature 96.8 F Pulse Rate 64 52 Respiratory 15 15 10 Rate Blood Pressure 121/82 117/72 (mmHg) O2 Sat by Pulse 98 99 Oximetry 10/07/16 10/07/16 10/07/16 20:45 20:59 21:16 Temperature Pulse Rate 66 62 Respiratory 12 15 16 Rate Blood Pressure 111/74 103/84 (mmHg) O2 Sat by Pulse 98 97 99 Oximetry 10/07/16 10/07/16 10/07/16 21:20 21:23 22:16 Temperature 97.6 F Pulse Rate 77 Respiratory 16 16 16 Rate Blood Pressure 125/77 (mmHg) O2 Sat by Pulse 99 98 Oximetry 10/07/16 10/07/16 10/07/16 22:24 23:16 23:23 Temperature 97.8 F 97.8 F Pulse Rate 67 70 Respiratory 16 16 16 Rate Blood Pressure 118/63 130/78 (mmHg) O2 Sat by Pulse 100 99 100 Oximetry 10/08/16 10/08/16 10/08/16 00:00 00:34 00:41 Temperature Pulse Rate 68 Respiratory 16 16 Rate Blood Pressure (mmHg) O2 Sat by Pulse 99 99 99 Oximetry 10/08/16 10/08/16 10/08/16 01:26 02:16 03:32 Temperature 98.3 F 98.5 F Pulse Rate 79 98 Respiratory 16 16 16 Rate Blood Pressure 124/78 133/75 (mmHg) O2 Sat by Pulse 99 99 98 Oximetry 10/08/16 10/08/16 10/08/16 04:00 06:00 07:37 Temperature 97.6 F Pulse Rate 109 93 Respiratory 20 16 16 Rate Blood Pressure 130/84 110/71 (mmHg) O2 Sat by Pulse 96 97 98 Oximetry 10/08/16 10/08/16 10/08/16 08:00 10:00 10:09 Temperature Pulse Rate Respiratory 16 16 18 Rate Blood Pressure (mmHg) O2 Sat by Pulse 98 94 Oximetry 10/08/16 10/08/16 10/08/16 10:21 11:09 12:00 Temperature 97.9 F Pulse Rate 114 Respiratory 22 18 18 Rate Blood Pressure 127/68 (mmHg) O2 Sat by Pulse 94 100 Oximetry 10/08/16 10/08/16 10/08/16 14:00 14:32 15:22 Temperature Pulse Rate 108 Respiratory 18 18 16 Rate Blood Pressure 102/61 (mmHg) O2 Sat by Pulse 97 98 Oximetry 10/08/16 10/08/16 10/08/16 15:32 15:44 15:49 Temperature 98.5 F Pulse Rate Respiratory 18 16 Rate Blood Pressure (mmHg) O2 Sat by Pulse Oximetry 10/08/16 10/08/16 10/08/16 15:55 16:42 16:51 Temperature Pulse Rate 108 Respiratory 18 16 16 Rate Blood Pressure 102/61 (mmHg) O2 Sat by Pulse 97 98 Oximetry Oxygen Devices in Use Now: None Appearance: Female sitting up in bed in NAD Eyes: No Scleral Icterus Ears/Nose/Mouth/Throat: Mucous Membranes Moist Neck: Trachea Midline Respiratory: Symmetrical Chest Expansion and Respiratory Effort, Clear to Auscultation Cardiovascular: NL Sounds; No Murmurs; No JVD, No Edema Abdominal: - - Soft, midline abdominal dressing CDI Lymphatic: No Cervical Adenopathy Extremities: No Edema Skin: No Rash or Ulcers Neurological: Alert and Oriented x 3, NL Muscle Strength and Tone Result Diagrams: 10/08/16 05:44 10/08/16 05:44 Assess/Plan/Problems-Billing Assessment: Mr. Mejia is a 41 yo female with a PMH of CVA, chronic low back pain and hyperlipidemia who was admitted on 10/06/16 with SBO. - Patient Problems (1) SBO (small bowel obstruction) Comment: - POD # 0 s/p ex lap and removal of bezoar. - Management per surgical team. - Continue IVF, HR improved but urine output low. Will adjust fluids as needed based on clinical course. - Pain meds prn. 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 - Resume plavix when approved per surgery. (3) Hyperlipidemia Comment: - Hold statin while NPO. (4) DVT prophylaxis Comment: - Heparin SQ. (5) Full code status Status and Disposition: Inpatient with expected LOS > 2 days. Anticipate discharge to home when medically stable.
[2016-10-08] MEDS: Pantoprazole IV* 40 MG IV SCH (21:06)
[2016-10-08] MEDS: Ondansetron INJ* 2 MG/ML VIAL IV PRN (23:13)
[2016-10-09] MEDS: Ketorolac INJ* 30 MG/ML 1 ML VIAL IV PUSH SCH ×4 (00:17→17:59)
[2016-10-09 06:36] LABS: BUN/Creatinine Ratio 26.5 (8-20); Calcium 7.2 mg/dL (8.6-10.3); EGFR African American 177.3 (>60); EGFR Non-African American 137.8 (>60); Magnesium 1.9 mg/dL (1.9-2.7); Potassium 3.7 mmol/L (3.5-5.0)
[2016-10-09] MEDS: Heparin VIAL(*) 5000 UNITS/ML VIAL (FIVE THOUSAND) SUBCUT SCH ×3 (07:08→22:24)
--- NOTE | 2016-10-09 09:13 | PN ---
Progress Note - Progress Note Date of Service: 10/09/16 Note: Surgery Progress: S: POD #2. Patient seen this a.m. Improved since yesterday, w/ better pain control. Denies nausea. No BM (other than some bloody smear on the pad) or flatus. Ambulating better. O: Vital Signs - 8 hr 10/09/16 10/09/16 10/09/16 06:00 06:30 07:37 Temperature 99.5 F Pulse Rate 84 Respiratory 16 16 16 Rate Blood Pressure 104/61 (mmHg) O2 Sat by Pulse 94 96 97 Oximetry 10/09/16 10/09/16 10/09/16 08:25 10:00 10:40 Temperature Pulse Rate Respiratory 16 16 16 Rate Blood Pressure (mmHg) O2 Sat by Pulse 96 97 Oximetry 10/09/16 10/09/16 11:29 11:40 Temperature 97.3 F Pulse Rate 103 Respiratory 16 16 Rate Blood Pressure 109/60 (mmHg) O2 Sat by Pulse 95 Oximetry Intake and Output Last 24 Hours 10/07/16 10/08/1610/0910/10/16 06:59 06:59 06:59 06:59 Intake Total 1852 5168 5306 555 Output Total 1300 1205 710 200 Balance 552 3963 4596 355 Weight 160 lb 160 lb Intake: IV Fluids 1852 5168 5203 355 ABX - CEFAZOLIN 50 ABX - FLAGYL 200 NS (0.9%) 1852 1768 5203 355 NS 50ML, Cefazolin 2G 50 lr 3100 IVPB 103 toradol 51 zofran 52 Oral 0 0 0 200 Output: Urine 1300 800 210 Rincon 355 500 200 Estimated Blood Loss 50 Other: # Bowel Movements 0 Heart: reg Lungs: clear Abd: flat, nondistended; absent BS; soft; mild to mod incisional tenderness; dsgs removed; no bleeding or drainage. Labs: Laboratory Tests 10/09/16 06:09 Sodium 137 Potassium 3.7 BUN 13 Creatinine 0.49 L Magnesium 1.9 A: s/p laparotomy w/ repair internal hernia and removal of bezoar; improved pain control and urine output; ileus P: start clear liqs; cont IVF for today; cont current pain regimen
--- NOTE | 2016-10-09 09:47 | PN ---
Subjective Date of Service: 10/09/16 Interval History: Ms. Mejia states that she is feeling relatively well today. She has some minimal abdominal pain that is reasonably controlled with her current pain medication regimen. She denies chest pain, SOB, or nausea. She has had some smears of stool but has not passed flatus. Objective Active Medications: Acetaminophen (Tylenol Tab*) 650 mg PO Q6H PRN Albuterol (Ventolin 2.5 Mg/3 Ml Neb.Joan*) 2.5 mg INH Q2H PRN Heparin Sodium (Porcine) (Heparin Vial(*)) 5,000 units SUBCUT Q8HR MARK Hydromorphone HCl (Dilaudid Iv*) 1 mg IV SLOW PU Q4H PRN Hydromorphone HCl (Dilaudid Appraiser*) 20 mg in 20 mls @ 0 mls/hr GRAIN SPOUTER .change Q24H MARK; Per Protocol Sodium Chloride (Ns 0.9% 1000 Ml*) 1,000 mls @ 125 mls/hr IV PER RATE MARK Ketorolac Tromethamine (Toradol Inj*) 30 mg IV PUSH Q6H MARK Lorazepam (Ativan Inj*) 0.5 mg IV BEDTIME PRN Lorazepam (Ativan Tab(*)) 0.5 mg PO Q6H PRN Metoclopramide HCl (Reglan Iv*) 10 mg IV Q6H PRN Ondansetron HCl (Zofran Inj*) 4 mg IV Q6H PRN Pantoprazole Sodium (Protonix Iv*) 40 mg IV Q24H [facility] Vital Signs 10/08/16 10/08/16 10/08/16 10:00 10:09 10:21 Temperature 97.9 F Pulse Rate 114 Respiratory 16 18 22 Rate Blood Pressure 127/68 (mmHg) O2 Sat by Pulse 94 94 Oximetry 10/08/16 10/08/16 10/08/16 11:09 12:00 14:00 Temperature Pulse Rate Respiratory 18 18 18 Rate Blood Pressure (mmHg) O2 Sat by Pulse 100 97 Oximetry 10/08/16 10/08/16 10/08/16 14:32 15:22 15:32 Temperature Pulse Rate 108 Respiratory 18 16 18 Rate Blood Pressure 102/61 (mmHg) O2 Sat by Pulse 98 Oximetry 10/08/16 10/08/16 10/08/16 15:44 15:49 15:55 Temperature 98.5 F Pulse Rate Respiratory 16 18 Rate Blood Pressure (mmHg) O2 Sat by Pulse 97 Oximetry 10/08/16 10/08/16 10/08/16 16:42 16:51 18:46 Temperature Pulse Rate 108 108 Respiratory 16 16 16 Rate Blood Pressure 102/61 102/61 (mmHg) O2 Sat by Pulse 98 98 Oximetry 10/08/16 10/08/16 10/08/16 19:36 19:40 21:10 Temperature 98.3 F Pulse Rate 83 Respiratory 16 16 16 Rate Blood Pressure 101/58 (mmHg) O2 Sat by Pulse 97 97 Oximetry 10/08/16 10/08/16 10/08/16 22:10 23:42 23:48 Temperature 98.4 F 98.4 F Pulse Rate 84 84 Respiratory 16 14 14 Rate Blood Pressure 101/56 101/56 (mmHg) O2 Sat by Pulse 96 100 100 Oximetry 10/09/16 10/09/16 10/09/16 00:17 02:52 03:21 Temperature 98.2 F Pulse Rate 85 Respiratory 14 16 16 Rate Blood Pressure 103/65 (mmHg) O2 Sat by Pulse 100 97 97 Oximetry 10/09/16 10/09/16 10/09/16 04:00 06:00 06:30 Temperature Pulse Rate Respiratory 16 16 16 Rate Blood Pressure (mmHg) O2 Sat by Pulse 97 94 96 Oximetry 10/09/16 10/09/16 07:37 08:25 Temperature 99.5 F Pulse Rate 84 Respiratory 16 16 Rate Blood Pressure 104/61 (mmHg) O2 Sat by Pulse 97 96 Oximetry Oxygen Devices in Use Now: None Appearance: Female lying in bed in NAD Eyes: No Scleral Icterus Ears/Nose/Mouth/Throat: Mucous Membranes Moist Neck: Trachea Midline Respiratory: Symmetrical Chest Expansion and Respiratory Effort, Clear to Auscultation Cardiovascular: NL Sounds; No Murmurs; No JVD, No Edema Abdominal: - - Soft, nontender with gentle palpation, BS hypoactive Lymphatic: No Cervical Adenopathy Extremities: No Edema Skin: - - Midline abd incision and lap sites well approximated without erythema or drainage Neurological: Alert and Oriented x 3, NL Muscle Strength and Tone Result Diagrams: 10/08/16 05:44 10/09/16 06:09 Assess/Plan/Problems-Billing Assessment: Mr. Mejia is a 41 yo female with a PMH of CVA, chronic low back pain and hyperlipidemia who was admitted on 10/06/16 with SBO. - Patient Problems (1) SBO (small bowel obstruction) Comment: - POD # 1 s/p ex lap and removal of bezoar. - Management per surgical team. - Continue maintenance IVF, HR and urine output improved. Monitor closely as intake greatly exceed output at this point. - Pain meds prn. - Diet advanced to clear liquid. 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 - Resume plavix when approved per surgery. (3) Hyperlipidemia Comment: - Hold statin while NPO. (4) DVT prophylaxis Comment: - Heparin SQ. (5) Full code status Status and Disposition: Inpatient with expected LOS > 2 days. Anticipate discharge to home when medically stable.
[2016-10-09] MEDS: NS 0.9% 1000 ML* 1,000 ML IV SCH (09:58)
[2016-10-09] MEDS: HYDROmorphone* 1 MG/ML 1 ML SYR IV SLOW PU PRN ×2 (10:40→22:24)
[2016-10-09] MEDS: LORazepam TAB(*) 0.5 MG PO PRN (13:09)
[2016-10-09] MEDS ORDERED: NS 0.9% 500 ML BAG* 500 ML IV ONE (15:31)
[2016-10-09] MEDS: HYDROmorphone PCA* 20 MG/20 ML PCA.SYRING PCA SCH (17:59)
[2016-10-09] MEDS: Pantoprazole IV* 40 MG IV SCH (20:07)
[2016-10-10] MEDS: Ketorolac INJ* 30 MG/ML 1 ML VIAL IV PUSH SCH ×4 (00:36→18:56)
[2016-10-10] MEDS: NS 0.9% 1000 ML* 1,000 ML IV SCH (02:41)
[2016-10-10] MEDS: Heparin VIAL(*) 5000 UNITS/ML VIAL (FIVE THOUSAND) SUBCUT SCH ×3 (06:34→21:29)
--- NOTE | 2016-10-10 09:04 | PN ---
Progress Note - Progress Note Date of Service: 10/10/16 SOAP: Subjective: Pt seen and examined. Feeling better today. No real appetite. No flatus or BM. No nausea. ambulating Objective: af vss UO good lungs clear abdo: soft/ nD/ incisional tenderness. staple line intact, no erythema. normoactive BS diez removed Ext: wnl Assessment: POD3 ex lap , sb resection, repair of internal hernia, hd staple, resolving ileus Plan: change IVF d/c RESOURCE ENGINEER d/c O2 nc incentive spirometer
[2016-10-10] MEDS ORDERED: Morphine INJ* 2 MG/ML 1 ML SYRINGE IV PRN (09:08)
[2016-10-10] MEDS: Clopidogrel TAB* 75 MG PO SCH (10:08)
[2016-10-10] MEDS: Gabapentin CAP(*) 100 MG PO SCH ×3 (10:08→21:27)
[2016-10-10] MEDS: oxyCODONE TAB* 5 MG TAB PO PRN ×2 (10:09→16:45)
[2016-10-10] MEDS: D5W 1/2 NS KCl 20 Meq 1000 ML* 1,000 ML IV SCH (10:10)
--- NOTE | 2016-10-10 12:09 | PN ---
Subjective Date of Service: 10/10/16 Interval History: Ms. Mejia states that she is feeling pretty good today. She has some abdominal pain but it continues to improve. She denies flatus or BM. She further denies chest pain or SOB. Objective Active Medications: Acetaminophen (Tylenol Tab*) 650 mg PO Q6H PRN Albuterol (Ventolin 2.5 Mg/3 Ml Neb.Joan*) 2.5 mg INH Q2H PRN Clopidogrel Bisulfate (Plavix Tab*) 75 mg PO DAILY MARK Docusate Sodium (Colace Cap*) 100 mg PO DAILY PRN Gabapentin (Neurontin Cap(*)) 400 mg PO TID MARK Heparin Sodium (Porcine) (Heparin Vial(*)) 5,000 units SUBCUT Q8HR MARK Hydromorphone HCl (Dilaudid Iv*) 1 mg IV SLOW PU Q4H PRN Potassium Chloride/Dextrose (D5w 1/2 Ns Kcl 20 Meq 1000 Ml*) 1,000 mls @ 50 mls /hr IV PER RATE MARK Ketorolac Tromethamine (Toradol Inj*) 30 mg IV PUSH Q6H MARK Lorazepam (Ativan Inj*) 0.5 mg IV BEDTIME PRN Lorazepam (Ativan Tab(*)) 0.5 mg PO Q6H PRN Metoclopramide HCl (Reglan Iv*) 10 mg IV Q6H PRN Morphine Sulfate (Morphine Inj (Syringe)*) 2 mg IV Q4H PRN Non-Formulary Medication (Adderall 10 Mg-) 20 mg PO QID MARK Ondansetron HCl (Zofran Inj*) 4 mg IV Q6H PRN Oxycodone HCl (Roxycodone Tab*) 10 mg PO TID PRN Pantoprazole Sodium (Protonix Iv*) 40 mg IV Q24H MARK Senna (Senokot Tab*) 1 tab PO DAILY PRN Vital Signs 10/09/16 10/09/16 10/09/16 13:09 14:00 14:39 Temperature 99.3 F Pulse Rate 112 Respiratory 18 18 20 Rate Blood Pressure 113/55 (mmHg) O2 Sat by Pulse 97 97 Oximetry 10/09/16 10/09/16 10/09/16 15:09 16:00 17:59 Temperature Pulse Rate Respiratory 16 16 20 Rate Blood Pressure (mmHg) O2 Sat by Pulse 98 Oximetry 10/09/16 10/09/16 10/09/16 18:00 18:59 20:09 Temperature 98.9 F Pulse Rate 95 Respiratory 16 16 16 Rate Blood Pressure 116/59 (mmHg) O2 Sat by Pulse 96 97 Oximetry 10/09/16 10/09/16 10/09/16 20:58 22:24 23:11 Temperature Pulse Rate Respiratory 18 18 18 Rate Blood Pressure (mmHg) O2 Sat by Pulse 96 94 Oximetry 10/09/16 10/09/16 10/10/16 23:14 23:20 00:30 Temperature 98.8 F Pulse Rate 94 Respiratory 18 18 20 Rate Blood Pressure 107/56 (mmHg) O2 Sat by Pulse 96 95 Oximetry 10/10/16 10/10/16 10/10/16 03:29 03:30 06:40 Temperature 98.0 F Pulse Rate 87 Respiratory 20 20 20 Rate Blood Pressure 110/56 (mmHg) O2 Sat by Pulse 98 98 96 Oximetry 10/10/16 10/10/16 10/10/16 08:03 08:21 10:00 Temperature 97.6 F Pulse Rate 84 Respiratory 16 16 16 Rate Blood Pressure 112/60 (mmHg) O2 Sat by Pulse 98 97 98 Oximetry 10/10/16 10/10/16 10/10/16 10:08 10:09 11:50 Temperature Pulse Rate Respiratory 16 16 16 Rate Blood Pressure (mmHg) O2 Sat by Pulse Oximetry Oxygen Devices in Use Now: None Appearance: sitting up on edge of bed in NAD Eyes: No Scleral Icterus Ears/Nose/Mouth/Throat: Mucous Membranes Moist Neck: Trachea Midline Respiratory: Symmetrical Chest Expansion and Respiratory Effort, Clear to Auscultation Cardiovascular: NL Sounds; No Murmurs; No JVD, No Edema Abdominal: - - Soft, BS hypoactive, midline abd incision open to air with well approximated flor and no drainage Lymphatic: No Cervical Adenopathy Extremities: No Edema Skin: No Rash or Ulcers Neurological: Alert and Oriented x 3, NL Muscle Strength and Tone Nutrition: Taking PO's Result Diagrams: 10/08/16 05:44 10/09/16 06:09 Assess/Plan/Problems-Billing Assessment: Mr. Mejia is a 41 yo female with a PMH of CVA, chronic low back pain and hyperlipidemia who was admitted on 10/06/16 with SBO. - Patient Problems (1) SBO (small bowel obstruction) Comment: - POD # 3 s/p ex lap and removal of bezoar. - Management per surgical team. - HR and urine output improved. Monitor closely as intake greatly exceeds output at this point. - Pain meds prn. - Diet advanced to full liquid. 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 - Resume plavix per surgery. (3) Hyperlipidemia Comment: - Hold statin while NPO. (4) DVT prophylaxis Comment: - Heparin SQ. (5) Full code status Status and Disposition: Inpatient with expected LOS > 2 days. Anticipate discharge to home when medically stable.
[2016-10-10] MEDS: HYDROmorphone* 1 MG/ML 1 ML SYR IV SLOW PU PRN ×2 (12:40→18:56)
[2016-10-10] MEDS: Amphetamine MIXED SALT TAB* 10 MG TAB PO SCH ×2 (14:26→19:52)
[2016-10-10] MEDS ORDERED: oxyCODONE TAB* 5 MG TAB PO PRN (18:48)
[2016-10-10] MEDS: Pantoprazole IV* 40 MG IV SCH (19:53)
[2016-10-11] MEDS: Ketorolac INJ* 30 MG/ML 1 ML VIAL IV PUSH SCH ×2 (00:39→08:41)
[2016-10-11] MEDS: Heparin VIAL(*) 5000 UNITS/ML VIAL (FIVE THOUSAND) SUBCUT SCH ×3 (06:30→22:39)
[2016-10-11] MEDS: D5W 1/2 NS KCl 20 Meq 1000 ML* 1,000 ML IV SCH (06:32)
[2016-10-11] MEDS ORDERED: Furosemide IV* 10 MG/ML 2 ML VIAL (20 MG) IV ONE (07:50)
[2016-10-11] MEDS ORDERED: oxyCODONE TAB* 5 MG TAB PO PRN (07:52)
[2016-10-11] MEDS: Gabapentin CAP(*) 100 MG PO SCH ×3 (08:53→20:49)
[2016-10-11] MEDS: Clopidogrel TAB* 75 MG PO SCH (08:53)
[2016-10-11] MEDS: Amphetamine MIXED SALT TAB* 10 MG TAB PO SCH ×4 (08:53→17:52)
--- NOTE | 2016-10-11 09:26 | PN ---
Subjective Date of Service: 10/11/16 Interval History: Ms. Mejia states that her legs feel very heavy and swollen. She also has persistent abdominal pain and is worried about ambulating due to pain. She denies other complaint including chest pain, SOB, or nausea. Objective Active Medications: Acetaminophen (Tylenol Tab*) 650 mg PO Q6H PRN Albuterol (Ventolin 2.5 Mg/3 Ml Neb.Joan*) 2.5 mg INH Q2H PRN Amphetamine/Dextroamphetamine (Adderall Tab*) 20 mg PO 0800,1000,1300,1800 MARK Clopidogrel Bisulfate (Plavix Tab*) 75 mg PO DAILY MARK Docusate Sodium (Colace Cap*) 100 mg PO DAILY PRN Gabapentin (Neurontin Cap(*)) 400 mg PO TID MARK Heparin Sodium (Porcine) (Heparin Vial(*)) 5,000 units SUBCUT Q8HR MARK Hydromorphone HCl (Dilaudid Iv*) 1 mg IV SLOW PU Q4H PRN Potassium Chloride/Dextrose (D5w 1/2 Ns Kcl 20 Meq 1000 Ml*) 1,000 mls @ 50 mls /hr IV PER RATE MARK Lorazepam (Ativan Inj*) 0.5 mg IV BEDTIME PRN Lorazepam (Ativan Tab(*)) 0.5 mg PO Q6H PRN Metoclopramide HCl (Reglan Iv*) 10 mg IV Q6H PRN Morphine Sulfate (Morphine Inj (Syringe)*) 2 mg IV Q4H PRN Ondansetron HCl (Zofran Inj*) 4 mg IV Q6H PRN Oxycodone HCl (Roxycodone Tab*) 20 mg PO Q6H PRN Oxycodone HCl (Roxycodone Tab*) 10 mg PO Q4H PRN Pantoprazole Sodium (Protonix Iv*) 40 mg IV Q24H MARK Senna (Senokot Tab*) 1 tab PO DAILY PRN Vital Signs 10/10/16 10/10/16 10/10/16 10:00 10:08 10:09 Temperature Pulse Rate Respiratory 16 16 16 Rate Blood Pressure (mmHg) O2 Sat by Pulse 98 Oximetry 10/10/16 10/10/16 10/10/16 11:50 12:09 12:31 Temperature 98.0 F Pulse Rate 98 Respiratory 16 16 18 Rate Blood Pressure 129/85 (mmHg) O2 Sat by Pulse 95 Oximetry 10/10/16 10/10/16 10/10/16 12:40 13:40 14:27 Temperature Pulse Rate Respiratory 16 16 16 Rate Blood Pressure (mmHg) O2 Sat by Pulse Oximetry 10/10/16 10/10/16 10/10/16 15:48 16:00 16:18 Temperature 99.8 F Pulse Rate 113 111 Respiratory 16 17 Rate Blood Pressure 139/89 (mmHg) O2 Sat by Pulse 99 99 99 Oximetry 10/10/16 10/10/16 10/10/16 16:27 16:45 18:45 Temperature Pulse Rate Respiratory 16 16 16 Rate Blood Pressure (mmHg) O2 Sat by Pulse Oximetry 10/10/16 10/10/16 10/10/16 18:56 19:30 19:56 Temperature 98.3 F Pulse Rate 107 Respiratory 16 18 16 Rate Blood Pressure 125/103 (mmHg) O2 Sat by Pulse 95 Oximetry 10/10/16 10/10/16 10/10/16 19:58 19:59 21:27 Temperature Pulse Rate Respiratory 16 16 16 Rate Blood Pressure (mmHg) O2 Sat by Pulse Oximetry 10/10/16 10/10/16 10/11/16 23:21 23:27 03:29 Temperature 99.7 F 98.1 F Pulse Rate 116 86 Respiratory 16 16 16 Rate Blood Pressure 132/76 113/66 (mmHg) O2 Sat by Pulse 96 95 Oximetry 10/11/16 10/11/16 10/11/16 06:27 07:48 08:27 Temperature 98.3 F Pulse Rate 95 Respiratory 18 18 18 Rate Blood Pressure 120/69 (mmHg) O2 Sat by Pulse 95 Oximetry 10/11/16 08:53 Temperature Pulse Rate Respiratory 18 Rate Blood Pressure (mmHg) O2 Sat by Pulse Oximetry Oxygen Devices in Use Now: None Appearance: Female lying in bed in NAD Eyes: No Scleral Icterus Ears/Nose/Mouth/Throat: Mucous Membranes Moist Neck: Trachea Midline Respiratory: Symmetrical Chest Expansion and Respiratory Effort, Clear to Auscultation Cardiovascular: NL Sounds; No Murmurs; No JVD, - - +1 edema to bilateral LEs Abdominal: - - Soft, mild tenderness, BS hyperactive, midline abdominal incision open to air without drainage or erythema Lymphatic: No Cervical Adenopathy Extremities: - - +1 edema to BLEs Skin: No Rash or Ulcers Neurological: Alert and Oriented x 3, NL Muscle Strength and Tone Nutrition: Taking PO's Result Diagrams: 10/08/16 05:44 10/09/16 06:09 Assess/Plan/Problems-Billing Assessment: Mr. Mejia is a 41 yo female with a PMH of CVA, chronic low back pain and hyperlipidemia who was admitted on 10/06/16 with SBO found to be secondary to bezoar. - Patient Problems (1) SBO (small bowel obstruction) Comment: - POD # 4 s/p ex lap and removal of bezoar. - Management per surgical team. - Intake greatly exceeds output and patient complains of LE swelling and heaviness. Plan for one time low dose lasix to help with edema and promote ambulation. - Pain meds prn, frequency of regimen increased. - Continue full liquid diet. 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 - Continue plavix. (3) Hyperlipidemia Comment: - Hold statin while on full liquids only. (4) DVT prophylaxis Comment: - Heparin SQ. (5) Full code status Status and Disposition: Inpatient with expected LOS > 2 days. Anticipate discharge to home when medically stable.
[2016-10-11] MEDS: oxyCODONE TAB* 5 MG TAB PO PRN ×2 (12:38→22:38)
--- NOTE | 2016-10-11 13:48 | PN ---
Progress Note - Progress Note Date of Service: 10/11/16 SOAP: Subjective: No BM or flatus. Pain control better with increased dose of oxycodone. Tolerating full liquids. Objective: Vital Signs Temp 98.6 F 10/11/16 12:17 Pulse 107 10/11/16 12:17 Resp 18 10/11/16 12:38 BP 137/87 10/11/16 12:17 Pulse Ox 100 10/11/16 12:17 Intake & Output 10/10/16 10/11/16 10/11/16 18:59 06:59 18:59 Intake Total 737 1217 205 Output Total 200 400 700 Balance 537 817 -495 Intake: IV Fluids 437 967 205 D5W 1/2 NS 20 meq KCL 967 205 NS (0.9%) 437 Oral 300 250 Output: Urine 200 400 700 NAD Abd: incis c/d/i no erythema; soft; tender. +BS. Assessment: POD#4 s/p exlap/removal of phytobezoar and reduction/repair of internal hernia. Post op ileus. Plan: Await return of GI fct. Clears. Ok to diurese.
[2016-10-11] MEDS: HYDROmorphone* 1 MG/ML 1 ML SYR IV SLOW PU PRN (19:12)
[2016-10-11] MEDS: Pantoprazole IV* 40 MG IV SCH (20:51)
[2016-10-12] MEDS: LORazepam INJ* 2 MG/ML 1 ML VIAL IV PRN (00:07)
[2016-10-12] MEDS: D5W 1/2 NS KCl 20 Meq 1000 ML* 1,000 ML IV SCH (04:26)
[2016-10-12] MEDS: Heparin VIAL(*) 5000 UNITS/ML VIAL (FIVE THOUSAND) SUBCUT SCH ×3 (05:33→21:53)
[2016-10-12 05:51] LABS: Comments Flag Yes; Hematocrit 26 % (35-47); Hemoglobin 8.3 g/dl (12.0-16.0); Mean Corpuscular HGB Conc 32 g/dl (31-36); Mean Corpuscular Hemoglobin 23 pg (27-31); Mean Corpuscular Volume 72 fL (80-97); Mean Platelet Volume 9 um3 (7.4-10.4); Red Blood Count 3.54 10^6/ul (4.0-5.4); Red Cell Distribution Width 17 % (10.5-15); White Blood Count 4.2 10^3/ul (3.5-10.8)
[2016-10-12 06:06] LABS: Albumin 2.4 g/dL (3.2-5.2); BUN/Creatinine Ratio 15.8 (8-20); Calcium 7.9 mg/dL (8.6-10.3); EGFR African American 148.9 (>60); EGFR Non-African American 115.8 (>60); Globulin 2.5 g/dL (2-4); Magnesium 1.6 mg/dL (1.9-2.7); Potassium 3.4 mmol/L (3.5-5.0); Total Bilirubin 0.6 mg/dL (0.2-1.0); Total Protein 4.9 g/dL (6.4-8.9)
[2016-10-12] MEDS: oxyCODONE TAB* 5 MG TAB PO PRN ×4 (06:17→19:35)
--- NOTE | 2016-10-12 08:06 | PN ---
Progress Note - Progress Note Date of Service: 10/12/16 SOAP: Subjective: This is a 41 y/o female POD#5 s/p exp laparotomy, removal of bezoar and reduction/repair of internal hernia. - Pain well controlled with IV Dilaudid and Oxy tab. - Tolerating full liquid diet well w/o n/v, + bloating sensation after meals. - Denies flatus and BMs. - Brownish bloody smear on the gown and clotted, brown blood in the urine was noted. Pt states some vaginal bleeding. - Pain and swelling in the BLEs alleviated by ice and elevation overnight. - Denies chest pain and SOB. Objective: - WNWD female in NAD, appear comfortable in bed. - VSS, afebrile - Heart: slight tachycardic, regular rhythm. - Lungs: CTA bilaterally. - Abdomen: Incisions C/D/I. Bowel sounds active Soft, round, slight distended, tender to palpation around the midline incision. - Extremities: Non-pitting edema in BLEs. Calves soft and non-tender. Assessment: - POD#5: patient is stable and improving, pain well controlled. - Post-op ileus - Anemia: ?dilutional Plan: - Continue full liquid diet. - Await bowel function - Continue current pain management - Encourage ambulation as tolerated. <Sarah Fernandez - Last Filed: 10/12/16 08:17> - Progress Note Date of Service: 10/12/16 SOAP: Subjective: Patient seen and examined. Doing better, denies nausea or vomiting. Still no flatus. Tolerating full liquids. Objective: Agree with above exam Assessment: Post-op ileus Plan: Ambulate as tolerated Keep on full liquid diet Possible discharge tomorrow, awaiting bowel functions. <Albert Crandall - Last Filed: 10/12/16 10:50>
[2016-10-12] MEDS: Amphetamine MIXED SALT TAB* 10 MG TAB PO SCH ×4 (08:39→17:57)
[2016-10-12] MEDS: Gabapentin CAP(*) 100 MG PO SCH ×3 (08:39→21:53)
[2016-10-12] MEDS: Clopidogrel TAB* 75 MG PO SCH (08:39)
[2016-10-12] MEDS: HYDROmorphone* 1 MG/ML 1 ML SYR IV SLOW PU PRN (08:44)
[2016-10-12] MEDS ORDERED: Furosemide IV* 10 MG/ML 2 ML VIAL (20 MG) IV ONE (15:40)
--- NOTE | 2016-10-12 16:20 | PN ---
Subjective Date of Service: 10/12/16 Interval History: Ms. Mejia continues to voice concern about how swollen her legs are. She feels that she is so swollen in general that she doesn't want to eat much either. She reports minimal abdominal pain. She denies nausea. She denies chest pain or SOB. Objective Active Medications: Acetaminophen (Tylenol Tab*) 650 mg PO Q6H PRN Albuterol (Ventolin 2.5 Mg/3 Ml Neb.Joan*) 2.5 mg INH Q2H PRN Amphetamine/Dextroamphetamine (Adderall Tab*) 20 mg PO 0800,1000,1300,1800 MARK Clopidogrel Bisulfate (Plavix Tab*) 75 mg PO DAILY MARK Docusate Sodium (Colace Cap*) 100 mg PO DAILY PRN Gabapentin (Neurontin Cap(*)) 400 mg PO TID MARK Heparin Sodium (Porcine) (Heparin Vial(*)) 5,000 units SUBCUT Q8HR MARK Lorazepam (Ativan Inj*) 0.5 mg IV BEDTIME PRN Lorazepam (Ativan Tab(*)) 0.5 mg PO Q6H PRN Metoclopramide HCl (Reglan Iv*) 10 mg IV Q6H PRN Morphine Sulfate (Morphine Inj (Syringe)*) 2 mg IV Q4H PRN Ondansetron HCl (Zofran Inj*) 4 mg IV Q6H PRN Oxycodone HCl (Roxycodone Tab*) 10 mg PO Q4H PRN Oxycodone HCl (Roxycodone Tab*) 20 mg PO Q4H PRN Pantoprazole Sodium (Protonix Iv*) 40 mg IV Q24H MARK Senna (Senokot Tab*) 1 tab PO DAILY PRN Vital Signs 10/11/16 10/11/16 10/11/16 16:15 19:06 19:12 Temperature 98.3 F Pulse Rate 131 Respiratory 18 21 20 Rate Blood Pressure 140/91 (mmHg) O2 Sat by Pulse 91 Oximetry 10/11/16 10/11/16 10/11/16 19:15 20:12 20:49 Temperature Pulse Rate Respiratory 20 16 16 Rate Blood Pressure (mmHg) O2 Sat by Pulse Oximetry 10/11/16 10/11/16 10/12/16 22:38 22:49 00:07 Temperature Pulse Rate Respiratory 16 16 20 Rate Blood Pressure (mmHg) O2 Sat by Pulse Oximetry 10/12/16 10/12/16 10/12/16 00:38 01:07 01:59 Temperature 98.5 F Pulse Rate 103 Respiratory 16 16 16 Rate Blood Pressure 115/70 (mmHg) O2 Sat by Pulse 96 Oximetry 10/12/16 10/12/16 10/12/16 03:29 06:17 07:34 Temperature 98.4 F 98.5 F Pulse Rate 106 116 Respiratory 16 16 16 Rate Blood Pressure 120/66 118/87 (mmHg) O2 Sat by Pulse 91 92 Oximetry 10/12/16 10/12/16 10/12/16 08:00 08:13 08:39 Temperature Pulse Rate 107 Respiratory 16 16 16 Rate Blood Pressure (mmHg) O2 Sat by Pulse 97 Oximetry 10/12/16 10/12/16 10/12/16 08:44 09:59 11:14 Temperature 97.3 F Pulse Rate 112 Respiratory 16 16 16 Rate Blood Pressure 132/78 (mmHg) O2 Sat by Pulse 92 Oximetry 10/12/16 10/12/16 10/12/16 13:12 15:14 15:16 Temperature 97.7 F Pulse Rate 112 Respiratory 16 16 16 Rate Blood Pressure 133/94 (mmHg) O2 Sat by Pulse 96 Oximetry Oxygen Devices in Use Now: None Appearance: Lying in bed in NAD Eyes: No Scleral Icterus Ears/Nose/Mouth/Throat: Mucous Membranes Moist Neck: Trachea Midline Respiratory: Symmetrical Chest Expansion and Respiratory Effort, Clear to Auscultation Cardiovascular: NL Sounds; No Murmurs; No JVD, - - + 1 edema Abdominal: NL Sounds; No Tenderness; No Distention, - - midline abd incision well approximated, no drainage Lymphatic: No Cervical Adenopathy Extremities: - - +1 edema Skin: No Rash or Ulcers Neurological: Alert and Oriented x 3, NL Muscle Strength and Tone Nutrition: Taking PO's Result Diagrams: 10/12/16 05:25 10/12/16 05:25 Assess/Plan/Problems-Billing Assessment: Mr. Mejia is a 41 yo female with a PMH of CVA, chronic low back pain and hyperlipidemia who was admitted on 10/06/16 with SBO found to be secondary to bezoar. - Patient Problems (1) SBO (small bowel obstruction) Comment: - POD # 5 s/p ex lap and removal of bezoar. - Abd soft, BS + but no flatus or BM yet. No evidence of bleeding, suspect anemia is related to hypervolemia. - Management per surgical team. - Intake greatly exceeds output and patient continues to complain of LE swelling and heaviness. Plan for one additional dose of lasix to help with edema and promote ambulation. Also question if fluid overload is causing mild tachycardia and dilutional anemia as well. - Pain meds prn. - Continue full liquid diet. 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 - Continue plavix. (3) Hyperlipidemia Comment: - Hold statin while on full liquids only. (4) DVT prophylaxis Comment: - Heparin SQ. (5) Full code status Status and Disposition: Inpatient with expected LOS > 2 days. Anticipate discharge to home when medically stable.
[2016-10-12] MEDS: Pantoprazole IV* 40 MG IV SCH (19:36)
[2016-10-12] MEDS ORDERED: ZOSYN 3.375 GM x ONE DOSE over 30 miuntes IVPB ×2 (21:00)
--- NOTE | 2016-10-12 21:40 | RAD ---
Indication: Small bowel obstruction. Cough and fever. Former tobacco use. History of patent foramen ovale. Comparison: October 06, 2016 CT abdomen. November 05, 2012 chest radiograph. Technique: Upright AP 2122 hours Report: Suboptimal inspiration compared with the prior exam with crowding of the pulmonary markings and basilar atelectasis. Negative for pleural effusion or pneumothorax. The heart, pulmonary vasculature, and mediastinal contours are unremarkable. Probable postoperative free air beneath the diaphragm. Gallbladder fossa level surgical clips. LEFT lower quadrant cutaneous flor. IMPRESSION: Low lung volumes for this patient compared with the November 05, 2012 exam with associated basilar atelectasis. Inflammatory infiltrates at the lung bases not excluded.
[2016-10-12 21:59] LABS: Urine Bacteria Absent (Absent); Urine Bilirubin Negative (Negative); Urine Glucose Negative (Negative); Urine Nitrite Negative (Negative)
[2016-10-13] MEDS: oxyCODONE TAB* 5 MG TAB PO PRN ×5 (03:52→22:21)
[2016-10-13] MEDS: Heparin VIAL(*) 5000 UNITS/ML VIAL (FIVE THOUSAND) SUBCUT SCH ×3 (05:56→22:22)
[2016-10-13 06:06] LABS: Hematocrit 24 % (35-47); Hemoglobin 7.7 g/dl (12.0-16.0); Mean Corpuscular HGB Conc 32 g/dl (31-36); Mean Corpuscular Hemoglobin 23 pg (27-31); Mean Platelet Volume 8 um3 (7.4-10.4); Red Blood Count 3.32 10^6/ul (4.0-5.4); Red Cell Distribution Width 17 % (10.5-15); White Blood Count 4.9 10^3/ul (3.5-10.8)
[2016-10-13 06:09] LABS: Comments Flag Yes; Mean Corpuscular Volume 72 fL (80-97)
[2016-10-13 06:24] LABS: BUN/Creatinine Ratio 13.2 (8-20); Calcium 7.7 mg/dL (8.6-10.3); EGFR African American 161.9 (>60); EGFR Non-African American 125.9 (>60); Potassium 3.4 mmol/L (3.5-5.0)
--- NOTE | 2016-10-13 07:59 | PN ---
Progress Note - Progress Note Date of Service: 10/13/16 SOAP: Subjective: This is a 41 y/o female POD#6 s/p exp laparotomy, removal of bezoar and reduction/repair of internal hernia. - Tolerating full liquid diet well w/o n/v. Poor appetite. - Denies flatus and BMs. - Had a fever last night, feels better now. - Pain well controlled by oxy tab only. - Noted decreased swelling in BLEs. Objective: - WNWD female in NAD, appears comfortable in bed. - VSS, afebrile - Heart: Slight tachycardia, regular rhythm, no murmurs. - Lungs: Decreased breath sound at bilateral bases. - Abdomen: Incision and lap sites C/D/I. No erythema or discharge. Bowel sounds present Soft, round, slightly distended, non-tender to palpation. - Extremities: Calves soft and non-tender, non-pitting edema in BLE. Both legs are elevated, SCD in place 10/12/16 10/12/16 10/12/16 01:59 03:29 07:34 Temperature 98.5 F 98.4 F 98.5 F 10/12/16 10/12/16 10/12/16 11:14 15:14 20:09 Temperature 97.3 F 97.7 F 101.8 F 10/13/16 10/13/16 00:01 03:34 Temperature 98.8 F 98.2 F Intake & Output 10/12/16 10/13/16 10/13/16 22:59 06:59 14:59 Intake Total 220 503 Output Total 1050 700 Balance -830 -197 Intake: IV Fluids 50 NS (0.9%) 50 IVPB 103 ABX - ZOSYN 103 Oral 220 350 Output: Urine 1050 700 Assessment: - POD#5: Patient is stable and improving. - Anemia: possible dilutional - Post-op ileus - fever Plan - Continue IV Zosyn. - Continue current pain management. - Continue full liquid diet. Await bowel function. - Encourage ambulation as tolerated.
[2016-10-13] MEDS: Gabapentin CAP(*) 100 MG PO SCH ×3 (08:12→20:23)
[2016-10-13] MEDS: Clopidogrel TAB* 75 MG PO SCH (08:12)
[2016-10-13] MEDS: Amphetamine MIXED SALT TAB* 10 MG TAB PO SCH ×4 (08:12→18:00)
[2016-10-13] MEDS: Potassium Chlor TAB* 20 MEQ TAB.ER PO SCH ×2 (08:12→20:24)
[2016-10-13] MEDS ORDERED: Magnesium Sulfate 2 GM IV* 2 GM/50 ML BAG IVPB ONE (09:08)
--- NOTE | 2016-10-13 10:43 | PN ---
Progress Note - Progress Note Date of Service: 10/13/16 Note: Surgery Progress: S: POD #6. Had fever and tachycardia last night. Zosyn was started. Feels better this am. Using O2 intermittently for SOB (lowest sat 91%; RR avg 16). Using only oxycodone for abd pain which she states is "not too bad". No flatus or BM, though after having seen the patient, she reported passing flatus while ambulating in the [place]. She would like to try to adv diet. She is ambulating frequently. O: Vital Signs - 24 hr 10/12/16 10/12/16 10/12/16 11:14 13:12 15:14 Temperature 97.3 F 97.7 F Pulse Rate 112 112 Respiratory 16 16 16 Rate Blood Pressure 132/78 133/94 (mmHg) O2 Sat by Pulse 92 96 Oximetry 10/12/16 10/12/16 10/12/16 15:16 17:16 19:16 Temperature Pulse Rate Respiratory 16 16 16 Rate Blood Pressure (mmHg) O2 Sat by Pulse Oximetry 10/12/16 10/12/16 10/12/16 19:35 19:40 20:09 Temperature y 1 01.8 F Pulse Rate 124 Respiratory 16 20 22 Rate Blood Pressure 137/86 (mmHg) O2 Sat by Pulse 94 Oximetry 10/12/16 10/12/16 10/12/16 21:04 21:35 21:53 Temperature Pulse Rate Respiratory 16 16 Rate Blood Pressure (mmHg) O2 Sat by Pulse 94 Oximetry 10/12/16 10/13/16 10/13/16 23:53 00:01 03:34 Temperature 98.8 F 98.2 F Pulse Rate 105 91 Respiratory 16 16 16 Rate Blood Pressure 113/60 108/66 (mmHg) O2 Sat by Pulse 93 97 Oximetry 10/13/16 10/13/16 10/13/16 03:52 05:52 07:34 Temperature 98.5 F Pulse Rate 89 Respiratory 16 16 16 Rate Blood Pressure 114/71 (mmHg) O2 Sat by Pulse 97 Oximetry Intake and Output Last 24 Hours 10/11/16 10/12/16 10/13/16 10/14/16 06:59 06:59 06:59 06:59 Intake Total 5244 3794 723 Output Total 600 1700 8800 600 Balance 1355 942 -1327 -600 Intake: IV Fluids 1404 1020 50 D5W 1/2 NS 20 meq KCL 967 1020 NS (0.9%) 437 50 IVPB 0 103 ABX - ZOSYN 103 D5W 1/2 NS 20 meq KCL 0 Oral 550 1325 570 Output: Urine 600 1700 2050 600 Other: # Bowel Movements 0 PE: Gen: Alert, comfortable, NAD Heart: reg, mild tachy (~ 100) Lungs: clear upper [place]; decreased at both bases Abd: incisions look good; BS+; soft; min tenderness Extr: 1-2 + edema; no tenderness Labs: Laboratory Results - last 24 hr 10/12/16 10/13/16 10/13/16 21:10 05:54 05:54 WBC 4.9 RBC 3.32 L Hgb 7.7 L Hct 24 L MCV 72 L MCH 23 L MCHC 32 RDW 17 H Plt Count 190 MPV 8 Neut % (Auto) 58.7 Lymph % (Auto) 17.1 L [place] % (Auto) 17.7 H Eos % (Auto) 5.9 Baso % (Auto) 0.6 Absolute Neuts (auto) 2.9 Absolute Lymphs (auto) 0.8 L Absolute Monos (auto) 0.9 H Absolute Eos (auto) 0.3 Absolute Basos (auto) 0 Absolute Nucleated RBC 0 Nucleated RBC % 0 Sodium 134 Potassium 3.4 L Chloride 102 Carbon Dioxide 28 Anion Gap 4 BUN 7 Creatinine 0.53 Est GFR ( Amer) 161.9 Est GFR (Non-Af Amer) 125.9 BUN/Creatinine Ratio 13.2 Glucose 90 Calcium 7.7 L Urine Color Yellow Urine Appearance Clear Urine pH 5.0 Ur Specific [place] 1.011 Urine Protein Negative Urine Ketones Trace H Urine Blood 3+ H Urine Nitrate Negative Urine Bilirubin Negative Urine Urobilinogen Negative Ur Leukocyte Esterase Negative Urine WBC (Auto) Trace(0-5/hpf) Urine RBC (Auto) 1+(3-5/hpf) H Ur Squamous Epith Cells Present H Urine Bacteria Absent Urine Glucose Negative Location: SURGICAL STAY UNIT Exam Date: 10/12/162027 ADM Status: ADM IN Order Information: CHEST AP PORTABLE Accession Number: [id number] CPT: 10656 Indication: Small bowel obstruction. Cough and fever. Former tobacco use. History of patent foramen ovale. Comparison: October 06, 2016 CT abdomen. November 05, 2012 chest radiograph. Technique: Upright AP 2122 hours Report: Suboptimal inspiration compared with the prior exam with crowding of the pulmonary markings and basilar atelectasis. Negative for pleural effusion or pneumothorax. The heart, pulmonary vasculature, and mediastinal contours are unremarkable. Probable postoperative free air beneath the diaphragm. Gallbladder fossa level surgical clips. LEFT lower quadrant cutaneous flor. IMPRESSION: Low lung volumes for this patient compared with the November 05, 2012 exam with associated basilar atelectasis. Inflammatory infiltrates at the lung bases not excluded. A: Overall, improving s/p expl lap, repair internal hernia, removal of SB bezoar , ileus resolving; fever/ tachycardia last night, most likely r/t atelectasis. P: will adv diet; encourage IS use, ambulation; will replete K and Mg; discharge planning
[2016-10-13] MEDS: KCL 10 MEQ/50 ML IVPREMIX* 10 MEQ/50 ML BAG IV SCH ×2 (11:25→13:15)
[2016-10-13] MEDS ORDERED: Iohexol 300* (CONTRAST) 10 ML SDV IV ONE (11:26)
--- NOTE | 2016-10-13 12:58 | PN ---
Progress Note - Progress Note Date of Service: 10/13/16 SOAP: Subjective: Pt seen and examined. Feeling ok today. some appetite. some flatus, no BM spike fever overnight ant Zosyn started. UA and cxr done. Objective: currently af , vss o2sat low 90s on RA lungs clear b/l ado: soft/ND, incisional tenderness staple line intact, no redness normoactive bs labs noted CT reviewed, report pending; ascities Assessment: POD6 ex lap, repair of internal hernia, Temp to 101.* overnight; r/o abscess Plan: abx as per hospialist advance diet f/u CT scan IS, OOB d/c planning labs in am [facility] to cover me until 10/18/16; pt is aware
--- NOTE | 2016-10-13 13:10 | PN ---
Subjective Date of Service: 10/13/16 Interval History: Patient seen and examined at bedside. She reports feeling better than yesterday, denying CP, SOB, abd pain, n/v. Denies any further fever/chills. Feels as if leg swelling is improving somewhat. Family History: Unchanged from Admission Social History: Unchanged from Admission Past Medical History: Unchanged from Admission Objective Active Medications: Acetaminophen (Tylenol Tab*) 650 mg PO Q6H PRN PRN Reason: FEVER/PAIN Albuterol (Ventolin 2.5 Mg/3 Ml Neb.Joan*) 2.5 mg INH Q2H PRN PRN Reason: SOB/WHEEZING Amphetamine/Dextroamphetamine (Adderall Tab*) 20 mg PO 0800,1000,1300,1800 [facility] Last Admin: 10/13/16 10:41 Dose: 20 mg Clopidogrel Bisulfate (Plavix Tab*) 75 mg PO DAILY [facility] Last Admin: 10/13/16 08:12 Dose: 75 mg Docusate Sodium (Colace Cap*) 100 mg PO DAILY PRN PRN Reason: CONSTIPATION Gabapentin (Neurontin Cap(*)) 400 mg PO TID [facility] Last Admin: 10/13/16 08:12 Dose: 400 mg Heparin Sodium (Porcine) (Heparin Vial(*)) 5,000 units SUBCUT Q8HR [facility] Last Admin: 10/13/16 05:56 Dose: 5,000 units Piperacillin Sod/Tazobactam (Sod 3.375 gm/ Sodium Chloride) 100 mls @ 25 mls/ hr IVPB Q8H [facility] Last Admin: 10/13/16 08:09 Dose: 25 mls/hr Lorazepam (Ativan Tab(*)) 0.5 mg PO Q6H PRN PRN Reason: ANXIETY Last Admin: 10/09/16 13:09 Dose: 0.5 mg Metoclopramide HCl (Reglan Iv*) 10 mg IV Q6H PRN PRN Reason: NAUSEA/VOMITING Last Admin: 10/12/16 00:06 Dose: 10 mg Morphine Sulfate (Morphine Inj (Syringe)*) 2 mg IV Q4H PRN PRN Reason: PAIN - MILD Ondansetron HCl (Zofran Inj*) 4 mg IV Q6H PRN PRN Reason: NAUSEA Last Admin: 10/08/16 23:13 Dose: 4 mg Oxycodone HCl (Roxycodone Tab*) 10 mg PO Q4H PRN PRN Reason: PAIN Oxycodone HCl (Roxycodone Tab*) 20 mg PO Q4H PRN PRN Reason: PAIN Last Admin: 10/13/16 12:45 Dose: 20 mg Pantoprazole Sodium (Protonix Iv*) 40 mg IV Q24H [facility] Last Admin: 10/12/16 19:36 Dose: 40 mg Potassium Chloride (Klor Con Er Tab*) 20 meq PO BID [facility] Last Admin: 10/13/16 08:12 Dose: 20 meq Senna (Senokot Tab*) 1 tab PO DAILY PRN PRN Reason: CONSTIPATION Vital Signs 10/12/16 10/12/16 10/12/16 13:12 15:14 15:16 Temperature 97.7 F Pulse Rate 112 Respiratory 16 16 16 Rate Blood Pressure 133/94 (mmHg) O2 Sat by Pulse 96 Oximetry 10/12/16 10/12/16 10/12/16 17:16 19:16 19:35 Temperature Pulse Rate Respiratory 16 16 16 Rate Blood Pressure (mmHg) O2 Sat by Pulse Oximetry 10/12/16 10/12/16 10/12/16 19:40 20:09 21:04 Temperature 101.8 F Pulse Rate 124 Respiratory 20 22 Rate Blood Pressure 137/86 (mmHg) O2 Sat by Pulse 94 94 Oximetry 10/12/16 10/12/16 10/12/16 21:35 21:53 23:53 Temperature Pulse Rate Respiratory 16 16 16 Rate Blood Pressure (mmHg) O2 Sat by Pulse Oximetry 10/13/16 10/13/16 10/13/16 00:01 03:34 03:52 Temperature 98.8 F 98.2 F Pulse Rate 105 91 Respiratory 16 16 16 Rate Blood Pressure 113/60 108/66 (mmHg) O2 Sat by Pulse 93 97 Oximetry 10/13/16 10/13/16 10/13/16 05:52 07:34 08:00 Temperature 98.5 F Pulse Rate 89 Respiratory 16 16 16 Rate Blood Pressure 114/71 (mmHg) O2 Sat by Pulse 97 97 Oximetry 10/13/16 10/13/16 10/13/16 08:12 08:22 10:06 Temperature Pulse Rate Respiratory 16 16 18 Rate Blood Pressure (mmHg) O2 Sat by Pulse Oximetry 10/13/16 10/13/16 10/13/16 10:22 11:37 12:45 Temperature 98.5 F Pulse Rate 97 Respiratory 18 16 18 Rate Blood Pressure 124/83 (mmHg) O2 Sat by Pulse 95 Oximetry Oxygen Devices in Use Now: None Appearance: Female patient, sitting on edge of bed, NAD Eyes: No Scleral Icterus Ears/Nose/Mouth/Throat: Clear Oropharnyx, Mucous Membranes Moist Neck: NL Appearance and Movements; NL JVP Respiratory: Symmetrical Chest Expansion and Respiratory Effort, Clear to Auscultation Cardiovascular: NL Sounds; No Murmurs; No JVD, RRR Abdominal: - - abd soft, non distended, midline incision and lap site with flor - well approximated, no drainage Extremities: - - +1 edema Neurological: Alert and Oriented x 3, NL Muscle Strength and Tone Lines/Tubes/Other Access: Clean, Dry and Intact Peripheral IV Nutrition: Taking PO's Result Diagrams: 10/13/16 05:54 10/13/16 05:54 Assess/Plan/Problems-Billing Assessment: Mr. Mejia is a 41 yo female with a PMH of CVA, chronic low back pain and hyperlipidemia who was admitted on 10/06/16 with SBO found to be secondary to bezoar. - Patient Problems (1) SBO (small bowel obstruction) Code(s): K56.69 - OTHER INTESTINAL OBSTRUCTION Comment: POD # 6 s/p ex lap and removal of bezoar. Abd soft, BS present, some flatus reported. CT shows ascites, dilated loops of bowel. No evidence of bleeding, suspect anemia is related to hypervolemia. Management per surgical team. Continue prn analgesia Continue full liquid diet. (2) Lower extremity edema Code(s): R60.0 - LOCALIZED EDEMA Comment: Good diuresis following IV furosemide. Continue to encourage ambulation for c/o LE swelling and for ileus. Give one time dose of IV furosemide today for LE edema. Also question if fluid overload is causing mild tachycardia and dilutional anemia as well. Continue to monitor. 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 Continue clopidogrel. (4) Hyperlipidemia Code(s): E78.5 - HYPERLIPIDEMIA, UNSPECIFIED Comment: Hold statin while on full liquids only. (5) DVT prophylaxis Comment: Heparin SQ (6) Full code status Code(s): Z78.9 - OTHER SPECIFIED HEALTH STATUS Status and Disposition: Inpatient with expected LOS > 2 days. Anticipate discharge to home when medically stable.
--- NOTE | 2016-10-13 13:32 | RAD ---
Indication: Fever, status post laparotomy Contrast: Administered 97.1 ml of OMNIPAQUE 300 mg/ml CT of the abdomen and pelvis was performed after oral and IV contrast administration. Coronal and sagittal reconstructed images were obtained. The lung bases demonstrates bibasilar airspace disease likely representing some atelectasis. Heart is of normal size without evidence of pericardial effusion. The liver is normal in size. Patient status post cholecystectomy. Perihepatic fluid and perisplenic fluid is noted. There is diffuse subcutaneous edema noted. There are persistent dilatation of small bowel loops abdomen. There is stool throughout the colon. Moderate degree of ascites is noted. The uterus and ovaries are unremarkable. There are collapsed loops of distal small bowel specifically the distal ileum. I cannot exclude a persistent small bowel obstruction. Diffuse edema is noted. IMPRESSION: SUBCUTANEOUS EDEMA WITH FREE FLUID IN THE ABDOMEN. PERSISTENTLY DILATED LOOPS OF SMALL BOWEL ARE NOTED WITH COLLAPSED DISTAL ILEUM. A PERSISTENT SMALL BOWEL OBSTRUCTION CANNOT BE EXCLUDED. NO HERNIAS ARE NOTED. BIBASILAR ATELECTASIS IS NOTED.
[2016-10-13] MEDS ORDERED: Furosemide IV* 10 MG/ML 2 ML VIAL (20 MG) IV SLOW PU ONE (14:54)
[2016-10-13] MEDS: Cetirizine* 10 MG TAB PO PRN (20:24)
[2016-10-13] MEDS: Pantoprazole IV* 40 MG IV SCH (20:25)
[2016-10-13] MEDS: LORazepam TAB(*) 0.5 MG PO PRN (22:19)
[2016-10-14 05:59] LABS: Hematocrit 24 % (35-47); Hemoglobin 7.6 g/dl (12.0-16.0); Mean Corpuscular HGB Conc 32 g/dl (31-36); Mean Corpuscular Hemoglobin 23 pg (27-31); Mean Platelet Volume 8 um3 (7.4-10.4); Red Blood Count 3.28 10^6/ul (4.0-5.4); Red Cell Distribution Width 17 % (10.5-15)
[2016-10-14 06:00] LABS: Comments Flag Yes; White Blood Count 3.4 10^3/ul (3.5-10.8)
[2016-10-14 06:01] LABS: Mean Corpuscular Volume 73 fL (80-97)
[2016-10-14] MEDS: Heparin VIAL(*) 5000 UNITS/ML VIAL (FIVE THOUSAND) SUBCUT SCH ×3 (06:07→21:25)
[2016-10-14] MEDS: oxyCODONE TAB* 5 MG TAB PO PRN ×4 (07:53→21:25)
--- NOTE | 2016-10-14 08:01 | PN ---
Progress Note - Progress Note Date of Service: 10/14/16 SOAP: Subjective: This is a 41 y/o female POD#7 s/p exp laparotomy, removal of bezoar and repair of internal hernia. - c/o 09/28 persistent epigastric pain staring last night, aggravated by lying flat. Oxy tab given this am. - c/o feeling bloated and tender in abdomen. - Denies chest pain and SOB. - Tolerating soft diet well w/o n/v - Reports passing some flatus, denies any BM. - Reports decreased swelling in BLEs. Objective: - WNWD female resting in bed, appears in pain. - VSS, afebrile - Heart: RRR, no murmurs - Lungs: decreased breath sounds in bilateral bases - Abdomen: Incision and lap sites C/D/I, no discharge or erythema. Bowel sounds active Round, firm, non-distended, tender to palpation across abdomen worses at epigastric area. - Extremities: Edema resolved. Calves soft and non-tender. - Abdomen/pelvis CT 10/13/16 showed subcutaneous edema with free fluid in the abdomen, persistently dilated loops of small bowel with collapsed distal ileum and bibasilar atelectasis Selected Entries 10/13/16 10/13/16 10/13/16 00:01 03:34 07:34 Temperature 98.8 F 98.2 F 98.5 F 10/13/16 10/13/16 10/13/16 11:37 15:22 19:30 Temperature 98.5 F 98.3 F 97.8 F 10/13/16 10/14/16 23:31 03:48 Temperature 98.6 F 98.2 F Temp Pulse Resp BP Pulse Ox 98.2 F 84 18 121/74 100 10/14/16 03:48 10/14/16 03:48 10/14/16 07:53 10/14/16 03:48 10/14/16 03:48 Intake & Output 10/13/16 10/14/16 10/14/16 22:59 06:59 14:59 Intake Total 742 200 Output Total 1100 700 Balance -358 -500 Intake: IV Fluids 157 ABX - ZOSYN 107 NS (0.9%) 50 Oral 585 200 Output: Urine 1100 700 Other: # Bowel Movements 0 Assessment: - POD#7: Patient is stable. - Post-op ileus: improving with flatus - Anemia. Plan: - Continue IV Zosyn - Continue pain management - Encourage ambulation as tolerated <Sarah Fernandez - Last Filed: 10/14/16 08:36> - Progress Note Date of Service: 10/14/16 SOAP: Subjective: Patient seen and examined by Dr. Ramírez as well. Objective: Agree with above exam findings. CT reviewed from yesterday. Assessment: POD#7, improving ileus, ? constipation Plan: Agree with above plan Will try a soap juan enema Medical management per hospitalist <Albert Crandall - Last Filed: 10/14/16 09:31>
[2016-10-14] MEDS: Gabapentin CAP(*) 100 MG PO SCH ×3 (09:23→20:16)
[2016-10-14] MEDS: Amphetamine MIXED SALT TAB* 10 MG TAB PO SCH ×4 (09:23→17:15)
[2016-10-14] MEDS: Potassium Chlor TAB* 20 MEQ TAB.ER PO SCH ×2 (09:23→20:16)
[2016-10-14] MEDS: Clopidogrel TAB* 75 MG PO SCH (09:23)
--- NOTE | 2016-10-14 09:45 | PN ---
Subjective Date of Service: 10/14/16 Interval History: Patient seen and examined at bedside. Ms. Mejia reports improvement in edema but reports epigastric pain that started last evening. Denies SOB, n/v, fever/chills. Reports flatus but no BM as of yet; she states, "it feels like something is getting ready to come." Family History: Unchanged from Admission Social History: Unchanged from Admission Past Medical History: Unchanged from Admission Objective Active Medications: Acetaminophen (Tylenol Tab*) 650 mg PO Q6H PRN PRN Reason: FEVER/PAIN Albuterol (Ventolin 2.5 Mg/3 Ml Neb.Joan*) 2.5 mg INH Q2H PRN PRN Reason: SOB/WHEEZING Amphetamine/Dextroamphetamine (Adderall Tab*) 20 mg PO 0800,1000,1300,1800 [facility] Last Admin: 10/14/16 09:23 Dose: 20 mg Cetirizine HCl (Zyrtec*) 10 mg PO BEDTIME PRN PRN Reason: HIVES Last Admin: 10/13/16 20:24 Dose: 10 mg Clopidogrel Bisulfate (Plavix Tab*) 75 mg PO DAILY [facility] Last Admin: 10/14/16 09:23 Dose: 75 mg Docusate Sodium (Colace Cap*) 100 mg PO DAILY PRN PRN Reason: CONSTIPATION Gabapentin (Neurontin Cap(*)) 400 mg PO TID [facility] Last Admin: 10/14/16 09:23 Dose: 400 mg Heparin Sodium (Porcine) (Heparin Vial(*)) 5,000 units SUBCUT Q8HR [facility] Last Admin: 10/14/16 06:07 Dose: 5,000 units Piperacillin Sod/Tazobactam (Sod 3.375 gm/ Sodium Chloride) 100 mls @ 25 mls/ hr IVPB Q8H [facility] Last Admin: 10/14/16 09:23 Dose: 25 mls/hr Lorazepam (Ativan Tab(*)) 0.5 mg PO Q6H PRN PRN Reason: ANXIETY Last Admin: 10/13/16 22:19 Dose: 0.5 mg Metoclopramide HCl (Reglan Iv*) 10 mg IV Q6H PRN PRN Reason: NAUSEA/VOMITING Last Admin: 10/12/16 00:06 Dose: 10 mg Morphine Sulfate (Morphine Inj (Syringe)*) 2 mg IV Q4H PRN PRN Reason: PAIN - MILD Ondansetron HCl (Zofran Inj*) 4 mg IV Q6H PRN PRN Reason: NAUSEA Last Admin: 10/08/16 23:13 Dose: 4 mg Oxycodone HCl (Roxycodone Tab*) 10 mg PO Q4H PRN PRN Reason: PAIN Oxycodone HCl (Roxycodone Tab*) 20 mg PO Q4H PRN PRN Reason: PAIN Last Admin: 10/14/16 07:53 Dose: 20 mg Pantoprazole Sodium (Protonix Iv*) 40 mg IV Q24H [facility] Last Admin: 10/13/16 20:25 Dose: 40 mg Potassium Chloride (Klor Con Er Tab*) 20 meq PO BID [facility] Last Admin: 10/14/16 09:23 Dose: 20 meq Senna (Senokot Tab*) 1 tab PO DAILY PRN PRN Reason: CONSTIPATION Vital Signs 10/13/16 10/13/16 10/13/16 10:06 10:22 11:37 Temperature 98.5 F Pulse Rate 97 Respiratory 18 18 16 Rate Blood Pressure 124/83 (mmHg) O2 Sat by Pulse 95 Oximetry 10/13/16 10/13/16 10/13/16 12:45 13:16 14:45 Temperature Pulse Rate Respiratory 18 18 18 Rate Blood Pressure (mmHg) O2 Sat by Pulse Oximetry 10/13/16 10/13/16 10/13/16 15:16 15:22 16:00 Temperature 98.3 F Pulse Rate 92 Respiratory 18 16 Rate Blood Pressure 123/90 (mmHg) O2 Sat by Pulse 98 95 Oximetry 10/13/16 10/13/16 10/13/16 16:48 18:11 18:48 Temperature Pulse Rate Respiratory 18 16 18 Rate Blood Pressure (mmHg) O2 Sat by Pulse Oximetry 10/13/16 10/13/16 10/13/16 19:30 20:00 20:23 Temperature 97.8 F Pulse Rate 101 Respiratory 16 20 18 Rate Blood Pressure 128/84 (mmHg) O2 Sat by Pulse 97 Oximetry 10/13/16 10/13/16 10/13/16 21:16 22:19 22:21 Temperature Pulse Rate Respiratory 20 18 Rate Blood Pressure (mmHg) O2 Sat by Pulse 95 Oximetry 10/13/16 10/13/16 10/14/16 22:23 23:31 00:21 Temperature 98.6 F Pulse Rate 94 Respiratory 18 16 14 Rate Blood Pressure 123/66 (mmHg) O2 Sat by Pulse 98 Oximetry 10/14/16 10/14/16 10/14/16 03:48 07:35 07:53 Temperature 98.2 F 98.2 F Pulse Rate 84 76 Respiratory 14 14 18 Rate Blood Pressure 121/74 117/75 (mmHg) O2 Sat by Pulse 100 98 Oximetry 10/14/16 10/14/16 10/14/16 09:16 09:17 09:23 Temperature Pulse Rate 74 Respiratory 16 20 Rate Blood Pressure (mmHg) O2 Sat by Pulse 98 98 Oximetry Oxygen Devices in Use Now: None Appearance: Female patient, lying in bed, appears uncomfortable Eyes: No Scleral Icterus Ears/Nose/Mouth/Throat: Clear Oropharnyx, Mucous Membranes Moist Neck: NL Appearance and Movements; NL JVP Respiratory: Symmetrical Chest Expansion and Respiratory Effort, Clear to Auscultation Cardiovascular: NL Sounds; No Murmurs; No JVD, RRR Abdominal: - - abd soft, tenderness over epigastric region with palpation. BS present. Surgical incisions well approximated with flor intact. Extremities: - - trace BLE edema Neurological: Alert and Oriented x 3, NL Muscle Strength and Tone Lines/Tubes/Other Access: Clean, Dry and Intact Peripheral IV Result Diagrams: 10/14/16 05:30 10/13/16 05:54 Microbiology and Other Data: Microbiology 10/12/16 21:45 Aerobic Blood Culture - Preliminary Blood Venous No Growth Day 1 Anaerobic Blood Culture - Preliminary No Growth Day 1 10/12/16 21:50 Aerobic Blood Culture - Preliminary Blood Venous No Growth Day 1 Anaerobic Blood Culture - Preliminary No Growth Day 1 Assess/Plan/Problems-Billing Assessment: Mr. Mejia is a 41 yo female with a PMH of CVA, chronic low back pain and hyperlipidemia who was admitted on 10/06/16 with SBO found to be secondary to bezoar. - Patient Problems (1) SBO (small bowel obstruction) Code(s): K56.69 - OTHER INTESTINAL OBSTRUCTION Comment: POD # 7 s/p ex lap and removal of bezoar. Abd soft, BS present, some flatus reported. Still with no BM, now with c/o epigastric pain CT shows ascites, dilated loops of bowel; plan for enema per surgery. No evidence of bleeding, suspect anemia is related to hypervolemia. Management per surgical team. Continue prn analgesia Continue full liquid diet. 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 Continue clopidogrel. (5) Hyperlipidemia Code(s): E78.5 - HYPERLIPIDEMIA, UNSPECIFIED Comment: Hold statin while on full liquids only. (6) DVT prophylaxis Comment: Heparin SQ (7) Full code status Code(s): Z78.9 - OTHER SPECIFIED HEALTH STATUS Status and Disposition: Inpatient with expected LOS > 2 days. Anticipate discharge to home when medically stable.
--- NOTE | 2016-10-14 09:50 | PN ---
Progress Note - Progress Note Date of Service: 10/14/16 SOAP: Subjective: She had some epigastric pain last night and this morning after taking in some soft diet. She is passing a small amount of gas, no BM and she has no nausea She feels a little more bloated today She is getting out of bed Objective: Afebrile for 24 hours Temp Pulse Resp BP Pulse Ox 98.2 F 74 20 117/75 98 10/14/16 07:35 10/14/16 09:16 10/14/16 09:23 10/14/16 07:35 10/14/16 09:17 Intake & Output 10/12/16 10/13/16 10/14/16 10/15/16 06:59 06:59 06:59 06:59 Intake Total 2345 723 1384 Output Total 1700 2050 3300 Balance 645 -1327 -1916 Weight 160 lb Intake: IV Fluids 1020 50 157 ABX - ZOSYN 107 D5W 1/2 NS 20 meq KCL 1020 NS (0.9%) 50 50 IVPB 0 103 242 ABX - ZOSYN 103 117 D5W 1/2 NS 20 meq KCL 0 magnesium 50 potassium 75 Oral [phone] Output: Urine 1700 2050 3300 Other: # Bowel Movements 0 0 PEX: Comfortable in NAD Lungs are clear Abd is soft and slightly distended. Bowel sounds are present throughout and are normal in pitch, not high pitched or tinkling. She has appropriate incisional tenderness and the incisions are clean and dry. Extremities without edema. Laboratory Results - last 24 hr 10/14/16 05:30 WBC 3.4 L RBC 3.28 L Hgb 7.6 L Hct 24 L MCV 73 L MCH 23 L MCHC 32 RDW 17 H Plt Count 231 MPV 8 Neut % (Auto) 44.6 Lymph % (Auto) 27.4 [place] % (Auto) 18.4 H Eos % (Auto) 9.0 H Baso % (Auto) 0.6 Absolute Neuts (auto) 1.5 Absolute Lymphs (auto) 0.9 L Absolute Monos (auto) 0.6 Absolute Eos (auto) 0.3 Absolute Basos (auto) 0 Absolute Nucleated RBC 0.01 Nucleated RBC % 0.2 Assessment: POD # 7 s/p exlap for SBO--post-op ileus and she is starting to pass flatus. Fever has resolved--cultures are so far negative, WBC normal CT done yesterday reviewed and discussed with Dr. Vick-some mild proximal small bowel distension, free fluid and a large amount of stool in the colon. Epigastric pain after starting on soft diet--her exam this morning is relatively benign with good bowel sounds Plan: Back to full liquids and follow for now-she is not ready for discharge. Enema Continue IV antibiotics until final cultures available--discussed with Drew Jade with hospitalist service. Increase activity and pulmonary toilet. Her care was discussed with Dr. Vick yesterday and I will be following her in his absence.
[2016-10-14] MEDS: Senna TAB PO PRN (13:23)
[2016-10-14] MEDS: Docusate CAP* 100 MG PO PRN (13:23)
[2016-10-14] MEDS: Pantoprazole IV* 40 MG IV SCH (20:24)
[2016-10-15] MEDS: oxyCODONE TAB* 5 MG TAB PO PRN ×3 (06:16→15:02)
[2016-10-15] MEDS: Heparin VIAL(*) 5000 UNITS/ML VIAL (FIVE THOUSAND) SUBCUT SCH ×3 (06:17→21:27)
[2016-10-15 06:37] LABS: BUN/Creatinine Ratio 6.8 (8-20); Blood Urea Nitrogen 4 mg/dL (6-24); CO2 Carbon Dioxide 20 mmol/L (22-32); Calcium 7.8 mg/dL (8.6-10.3); Chloride 102 mmol/L (101-111); EGFR African American 143.1 (>60); EGFR Non-African American 111.2 (>60); Glucose 70 mg/dL (70-100); Sodium 131 mmol/L (133-145)
[2016-10-15 06:42] LABS: Anion Gap 9 mmol/L (2-11)
--- NOTE | 2016-10-15 08:35 | PN ---
Progress Note - Progress Note Date of Service: 10/15/16 SOAP: Subjective: Feels better this morning-passing more flatus and epigastric pain is gone No N/V and she had BM yesterday. Would like to advance diet. Making large amounts of urine She had spontaneous serous drainage from midline wound last night--no further drainage--wound was opened slightly and packed. Objective: Afebrile last 24 hours Temp Pulse Resp BP Pulse Ox 98.1 F 77 18 129/78 96 10/15/16 04:02 10/15/16 04:02 10/15/16 07:26 10/15/16 04:02 10/15/16 07:26 Intake & Output 10/13/16 10/14/16 10/15/16 10/16/16 06:59 06:59 06:59 06:59 Intake Total 723 1384 1425 Output Total 2049 3300 3750 Balance -3307 -1662 -1133 Weight 160 lb Intake: IV Fluids 50 157 ABX - ZOSYN 107 NS (0.9%) 50 50 IVPB 103 242 105 ABX - ZOSYN 103 117 105 magnesium 50 potassium 75 Oral [phone] Output: Urine 2049 3300 3750 Other: # Bowel Movements 0 PEX: Comfortable awake and alert Lungs are clear Abd is soft and non-distended. Bowel sounds are present and are normoactive Midline incision is intact--packing removed and wound is clean, fascia intact. No redness or odor/purulence Ext without edema Laboratory Results - last 24 hr 10/15/16 06:12 Sodium 131 L Potassium TNP Chloride 102 Carbon Dioxide 20 L Anion Gap 9 BUN 4 L Creatinine 0.59 Est GFR ( Amer) 143.1 Est GFR (Non-Af Amer) 111.2 BUN/Creatinine Ratio 6.8 L Glucose 70 Calcium 7.8 L Assessment: POD# 8 s/p exlap for SBO Ileus is resolving--will advance diet back to soft Increase activity Seroma of wound has been drained. I removed several flor last night and drained serous fluid--exploration of wound notes fascia is intact. No signs of abscess. In retrospect on CT scan there appears to be a fluid collection in subq space under staple line. Abdominal wall intact on CT No more fever--blood cultures negative Plan: Diet to soft Increase activity Abd dressing changed--I think this can be steri-stripped closed on D/C D/C antibiotics? D/W hospitalist Possible d/c later today or tomorrow. Check K-still pending
[2016-10-15] MEDS: Potassium Chlor TAB* 20 MEQ TAB.ER PO SCH ×2 (09:06→21:27)
[2016-10-15] MEDS: Clopidogrel TAB* 75 MG PO SCH (09:06)
[2016-10-15] MEDS: Gabapentin CAP(*) 100 MG PO SCH ×3 (09:06→21:26)
[2016-10-15] MEDS: Amphetamine MIXED SALT TAB* 10 MG TAB PO SCH ×4 (09:06→18:05)
[2016-10-15] MEDS: Docusate CAP* 100 MG PO PRN (09:06)
[2016-10-15] MEDS: Senna TAB PO PRN (09:06)
--- NOTE | 2016-10-15 11:29 | PN ---
Subjective Date of Service: 10/15/16 Interval History: Patient seen and examined at bedside. She reports feeling much better once the fluid was released from her abdomen. Patient reports BM yesterday but none since then. LE edema improved, still with some pitting edema in her feet. Denies CP, SOB, n/v. Family History: Unchanged from Admission Social History: Unchanged from Admission Past Medical History: Unchanged from Admission Objective Active Medications: Acetaminophen (Tylenol Tab*) 650 mg PO Q6H PRN PRN Reason: FEVER/PAIN Albuterol (Ventolin 2.5 Mg/3 Ml Neb.Joan*) 2.5 mg INH Q2H PRN PRN Reason: SOB/WHEEZING Amphetamine/Dextroamphetamine (Adderall Tab*) 20 mg PO 0800,1000,1300,1800 [facility] Last Admin: 10/15/16 10:22 Dose: 20 mg Cetirizine HCl (Zyrtec*) 10 mg PO BEDTIME PRN PRN Reason: HIVES Last Admin: 10/13/16 20:24 Dose: 10 mg Clopidogrel Bisulfate (Plavix Tab*) 75 mg PO DAILY [facility] Last Admin: 10/15/16 09:06 Dose: 75 mg Docusate Sodium (Colace Cap*) 100 mg PO DAILY PRN PRN Reason: CONSTIPATION Last Admin: 10/15/16 09:06 Dose: 100 mg Gabapentin (Neurontin Cap(*)) 400 mg PO TID [facility] Last Admin: 10/15/16 09:06 Dose: 400 mg Heparin Sodium (Porcine) (Heparin Vial(*)) 5,000 units SUBCUT Q8HR [facility] Last Admin: 10/15/16 06:17 Dose: 5,000 units Heparin Sodium (Porcine) (Heparin Flush Picc/Ml/Cvc(*)) 0 ml IV FLUSH 0600, 1800 [facility] PRN Reason: Protocol Last Admin: 10/15/16 06:17 Dose: 1 ml Metoclopramide HCl (Reglan Iv*) 10 mg IV Q6H PRN PRN Reason: NAUSEA/VOMITING Last Admin: 10/12/16 00:06 Dose: 10 mg Morphine Sulfate (Morphine Inj (Syringe)*) 2 mg IV Q4H PRN PRN Reason: PAIN - MILD Ondansetron HCl (Zofran Inj*) 4 mg IV Q6H PRN PRN Reason: NAUSEA Last Admin: 10/08/16 23:13 Dose: 4 mg Oxycodone HCl (Roxycodone Tab*) 10 mg PO Q4H PRN PRN Reason: PAIN Oxycodone HCl (Roxycodone Tab*) 20 mg PO Q4H PRN PRN Reason: PAIN Last Admin: 10/15/16 10:23 Dose: 20 mg Pantoprazole Sodium (Protonix Iv*) 40 mg IV Q24H [facility] Last Admin: 10/14/16 20:24 Dose: 40 mg Potassium Chloride (Klor Con Er Tab*) 20 meq PO BID [facility] Last Admin: 10/15/16 09:06 Dose: 20 meq Senna (Senokot Tab*) 1 tab PO DAILY PRN PRN Reason: CONSTIPATION Last Admin: 10/15/16 09:06 Dose: 1 tab Vital Signs 10/14/16 10/14/16 10/14/16 13:19 13:20 15:19 Temperature Pulse Rate Respiratory 16 16 16 Rate Blood Pressure (mmHg) O2 Sat by Pulse Oximetry 10/14/16 10/14/16 10/14/16 16:00 16:21 17:14 Temperature 99.5 F Pulse Rate 83 Respiratory 16 16 Rate Blood Pressure 112/67 (mmHg) O2 Sat by Pulse 98 98 Oximetry 10/14/16 10/14/16 10/14/16 19:14 20:00 20:06 Temperature 97.8 F Pulse Rate 87 Respiratory 18 16 16 Rate Blood Pressure 135/92 (mmHg) O2 Sat by Pulse 98 Oximetry 10/14/16 10/14/16 10/14/16 20:16 21:25 22:16 Temperature Pulse Rate Respiratory 18 18 18 Rate Blood Pressure (mmHg) O2 Sat by Pulse Oximetry 10/14/16 10/14/16 10/15/16 23:25 23:41 00:00 Temperature 97.8 F Pulse Rate 86 Respiratory 18 16 Rate Blood Pressure 116/68 (mmHg) O2 Sat by Pulse 95 96 Oximetry 10/15/16 10/15/16 10/15/16 01:37 04:02 06:16 Temperature 98.1 F Pulse Rate 87 77 Respiratory 16 14 18 Rate Blood Pressure 129/78 (mmHg) O2 Sat by Pulse 96 96 Oximetry 10/15/16 10/15/16 10/15/16 07:26 07:59 08:16 Temperature 98.1 F Pulse Rate 80 Respiratory 18 15 16 Rate Blood Pressure 117/75 (mmHg) O2 Sat by Pulse 96 98 Oximetry 10/15/16 10/15/16 10/15/16 09:06 10:23 11:05 Temperature Pulse Rate Respiratory 16 16 16 Rate Blood Pressure (mmHg) O2 Sat by Pulse Oximetry Oxygen Devices in Use Now: None Appearance: Female patient, sitting up in room, NAD Eyes: No Scleral Icterus Ears/Nose/Mouth/Throat: Clear Oropharnyx, Mucous Membranes Moist Neck: NL Appearance and Movements; NL JVP Respiratory: Symmetrical Chest Expansion and Respiratory Effort, Clear to Auscultation Cardiovascular: NL Sounds; No Murmurs; No JVD, RRR Abdominal: - - abd soft, BS present, less distended. Dressing with old serous drainage to midline incision, flor to lap sites intact Extremities: - - +1 pitting edema to feet Neurological: Alert and Oriented x 3, NL Gait, NL Muscle Strength and Tone Lines/Tubes/Other Access: Clean, Dry and Intact Peripheral IV Nutrition: Taking PO's Result Diagrams: 10/14/16 05:30 10/15/16 08:37 Microbiology and Other Data: Microbiology 10/12/16 21:45 Aerobic Blood Culture - Preliminary Blood Venous No Growth Day 1 Anaerobic Blood Culture - Preliminary No Growth Day 1 10/12/16 21:50 Aerobic Blood Culture - Preliminary Blood Venous No Growth Day 1 Anaerobic Blood Culture - Preliminary No Growth Day 1 Assess/Plan/Problems-Billing Assessment: Mr. Mejia is a 41 yo female with a PMH of CVA, chronic low back pain and hyperlipidemia who was admitted on 10/06/16 with SBO found to be secondary to bezoar. - Patient Problems (1) SBO (small bowel obstruction) Code(s): K56.69 - OTHER INTESTINAL OBSTRUCTION Comment: POD # 8 s/p ex lap and removal of bezoar. Patient with seroma s/p drainage and packing BM after enema, improvement in abd pain Management per surgical team. 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 Continue clopidogrel. (5) Hyperlipidemia Code(s): E78.5 - HYPERLIPIDEMIA, UNSPECIFIED Comment: Hold statin while on full liquids only. (6) DVT prophylaxis Comment: Heparin SQ (7) Full code status Code(s): Z78.9 - OTHER SPECIFIED HEALTH STATUS Status and Disposition: Inpatient with expected LOS > 2 days. Anticipate discharge to home when medically stable.
[2016-10-15] MEDS: Cetirizine* 10 MG TAB PO PRN (15:02)
[2016-10-15] MEDS: Magnesium Hydroxide LIQ* 30 ML UDC PO PRN (18:31)
[2016-10-15] MEDS: Pantoprazole IV* 40 MG IV SCH (21:27)
[2016-10-16] MEDS: oxyCODONE TAB* 5 MG TAB PO PRN ×2 (02:26→08:04)
[2016-10-16] MEDS: Heparin VIAL(*) 5000 UNITS/ML VIAL (FIVE THOUSAND) SUBCUT SCH (05:59)
[2016-10-16 06:18] LABS: BUN/Creatinine Ratio 5.9 (8-20); Calcium 8.2 mg/dL (8.6-10.3); EGFR African American 121.4 (>60); EGFR Non-African American 94.4 (>60); Magnesium 2.1 mg/dL (1.9-2.7); Potassium 4.7 mmol/L (3.5-5.0)
[2016-10-16] MEDS: Amphetamine MIXED SALT TAB* 10 MG TAB PO SCH ×2 (08:04→10:03)
[2016-10-16 08:45] LABS: Hematocrit 26 % (35-47); Hemoglobin 8.2 g/dl (12.0-16.0); Mean Corpuscular HGB Conc 32 g/dl (31-36); Mean Corpuscular Hemoglobin 23 pg (27-31); Mean Platelet Volume 8 um3 (7.4-10.4); Red Blood Count 3.55 10^6/ul (4.0-5.4); Red Cell Distribution Width 17 % (10.5-15); White Blood Count 5.3 10^3/ul (3.5-10.8)
[2016-10-16 08:46] LABS: Comments Flag Yes; Mean Corpuscular Volume 73 fL (80-97)
--- NOTE | 2016-10-16 08:52 | PN ---
Progress Note - Progress Note Date of Service: 10/16/16 Note: Surgery Progress: S: POD #8. Overall, doing well. No increase in pain (managed by po oxycodone only); amol po well. Passing flatus; no addl BM. O: Vital Signs - 8 hr 10/16/16 10/16/16 10/16/16 02:26 03:24 04:26 Temperature 98.4 F Pulse Rate 79 Respiratory 18 16 16 Rate Blood Pressure 110/67 (mmHg) O2 Sat by Pulse 94 Oximetry 10/16/16 10/16/16 08:04 08:08 Temperature Pulse Rate 63 Respiratory 18 16 Rate Blood Pressure (mmHg) O2 Sat by Pulse 93 Oximetry Intake and Output Last 24 Hours 10/14/16 10/15/16 10/16/16 10/17/16 06:59 06:59 06:59 06:59 Intake Total 1384 1425 1430 Output Total 3300 3750 5150 Balance -2338 -1359 -5430 Weight 160 lb Intake: IV Fluids 157 ABX - ZOSYN 107 NS (0.9%) 50 IVPB 242 105 ABX - ZOSYN 117 105 magnesium 50 potassium 75 Oral 985 1320 1430 Output: Urine 3300 3750 5150 Other: # Bowel Movements 0 PE: Gen: WN in NAD Heart: reg Lungs: clear Abd: mod serous drainage on dsg; soft, nontender; wound clean; no add'l expressible drainage; steristrips applied; other wounds ok Extr: less drainage Labs: Laboratory Results - last 24 hr 10/15/16 10/16/16 10/16/16 08:37 05:41 08:40 WBC 5.3 RBC 3.55 L Hgb 8.2 L Hct 26 L MCV 73 L MCH 23 L MCHC 32 RDW 17 H Plt Count 320 MPV 8 Neut % (Auto) 56.8 Lymph % (Auto) 24.6 L [place] % (Auto) 11.3 H Eos % (Auto) 6.6 H Baso % (Auto) 0.7 Absolute Neuts (auto) 3.0 Absolute Lymphs (auto) 1.3 Absolute Monos (auto) 0.6 Absolute Eos (auto) 0.4 Absolute Basos (auto) 0 Absolute Nucleated RBC 0.01 Nucleated RBC % 0.1 Sodium 136 Potassium 3.9 4.7 Chloride 103 Carbon Dioxide 31 Anion Gap 2 BUN 4 L Creatinine 0.68 Est GFR ( Amer) 121.4 Est GFR (Non-Af Amer) 94.4 BUN/Creatinine Ratio 5.9 L Glucose 84 Calcium 8.2 L Magnesium 2.1 Iron 19 L TIBC 293 % Saturation 6 L Unsat Iron Binding 274 A/P: s/p ex lap, repair internal hernia and removal of SB bezoar; ok for d/c today; discussed w/ Dr. Ramírez (covering); office f/u next week.
[2016-10-16] MEDS ORDERED: Ferrous Sulfate TAB* 325 MG PO SCH (09:00)
[2016-10-16] MEDS: Potassium Chlor TAB* 20 MEQ TAB.ER PO SCH (09:05)
[2016-10-16] MEDS: Clopidogrel TAB* 75 MG PO SCH (09:05)
[2016-10-16] MEDS: Gabapentin CAP(*) 100 MG PO SCH (09:05)
[2016-10-16] MEDS: Magnesium Hydroxide LIQ* 30 ML UDC PO PRN (09:08)
[2016-10-16 09:43] VITALS: BP 117/74
--- NOTE | 2016-10-16 11:15 | PN ---
Subjective Date of Service: 10/16/16 Interval History: Patient seen and examined at bedside Patient discharged earlier today by surgery. Patient reports pedal edema is improving. Pain better controlled. Feels ready for discharge. Family History: Unchanged from Admission Social History: Unchanged from Admission Past Medical History: Unchanged from Admission Objective Active Medications: Acetaminophen (Tylenol Tab*) 650 mg PO Q6H PRN PRN Reason: FEVER/PAIN Albuterol (Ventolin 2.5 Mg/3 Ml Neb.Joan*) 2.5 mg INH Q2H PRN PRN Reason: SOB/WHEEZING Amphetamine/Dextroamphetamine (Adderall Tab*) 20 mg PO 0800,1000,1300,1800 [facility] Last Admin: 10/16/16 10:03 Dose: 20 mg Cetirizine HCl (Zyrtec*) 10 mg PO BEDTIME PRN PRN Reason: HIVES Last Admin: 10/15/16 15:02 Dose: 10 mg Clopidogrel Bisulfate (Plavix Tab*) 75 mg PO DAILY [facility] Last Admin: 10/16/16 09:05 Dose: 75 mg Docusate Sodium (Colace Cap*) 100 mg PO DAILY PRN PRN Reason: CONSTIPATION Last Admin: 10/15/16 09:06 Dose: 100 mg Ferrous Sulfate (Ferrous Sulfate Tab*) 325 mg PO BID [facility] Last Admin: 10/16/16 09:06 Dose: 325 mg Gabapentin (Neurontin Cap(*)) 400 mg PO TID [facility] Last Admin: 10/16/16 09:05 Dose: 400 mg Heparin Sodium (Porcine) (Heparin Vial(*)) 5,000 units SUBCUT Q8HR [facility] Last Admin: 10/16/16 05:59 Dose: 5,000 units Heparin Sodium (Porcine) (Heparin Flush Picc/Ml/Cvc(*)) 0 ml IV FLUSH 0600, 1800 [facility] PRN Reason: Protocol Last Admin: 10/16/16 05:59 Dose: 1 ml Magnesium Hydroxide (Milk Of Magnesia Liq*) 30 ml PO Q4H PRN PRN Reason: CONSTIPATION Last Admin: 10/16/16 09:08 Dose: 30 ml Metoclopramide HCl (Reglan Iv*) 10 mg IV Q6H PRN PRN Reason: NAUSEA/VOMITING Last Admin: 10/12/16 00:06 Dose: 10 mg Morphine Sulfate (Morphine Inj (Syringe)*) 2 mg IV Q4H PRN PRN Reason: PAIN - MILD Ondansetron HCl (Zofran Inj*) 4 mg IV Q6H PRN PRN Reason: NAUSEA Last Admin: 10/08/16 23:13 Dose: 4 mg Oxycodone HCl (Roxycodone Tab*) 10 mg PO Q4H PRN PRN Reason: PAIN Last Admin: 10/15/16 21:27 Dose: 10 mg Oxycodone HCl (Roxycodone Tab*) 20 mg PO Q4H PRN PRN Reason: PAIN Last Admin: 10/16/16 08:04 Dose: 20 mg Pantoprazole Sodium (Protonix Iv*) 40 mg IV Q24H [facility] Last Admin: 10/15/16 21:27 Dose: 40 mg Potassium Chloride (Klor Con Er Tab*) 20 meq PO BID [facility] Last Admin: 10/16/16 09:05 Dose: 20 meq Senna (Senokot Tab*) 1 tab PO DAILY PRN PRN Reason: CONSTIPATION Last Admin: 10/15/16 09:06 Dose: 1 tab Vital Signs 10/15/16 10/15/16 10/15/16 11:57 12:23 13:10 Temperature 98.3 F Pulse Rate 97 Respiratory 14 16 16 Rate Blood Pressure 126/76 (mmHg) O2 Sat by Pulse 94 Oximetry 10/15/16 10/15/16 10/15/16 14:57 15:02 16:00 Temperature Pulse Rate Respiratory 16 16 Rate Blood Pressure (mmHg) O2 Sat by Pulse 94 Oximetry 10/15/16 10/15/16 10/15/16 16:58 17:08 19:37 Temperature 98.6 F 98.9 F Pulse Rate 104 100 Respiratory 16 16 18 Rate Blood Pressure 132/86 131/79 (mmHg) O2 Sat by Pulse 95 97 Oximetry 10/15/16 10/15/16 10/15/16 20:00 21:26 21:27 Temperature Pulse Rate 100 Respiratory 16 18 18 Rate Blood Pressure (mmHg) O2 Sat by Pulse 97 Oximetry 10/15/16 10/15/16 10/16/16 23:26 23:27 00:00 Temperature Pulse Rate Respiratory 18 18 Rate Blood Pressure (mmHg) O2 Sat by Pulse 94 Oximetry 10/16/16 10/16/16 10/16/16 00:03 02:26 03:24 Temperature 98.4 F 98.4 F Pulse Rate 76 79 Respiratory 16 18 16 Rate Blood Pressure 109/68 110/67 (mmHg) O2 Sat by Pulse 94 94 Oximetry 10/16/16 10/16/16 10/16/16 04:26 07:44 08:00 Temperature 98.3 F Pulse Rate 73 Respiratory 16 15 16 Rate Blood Pressure 117/74 (mmHg) O2 Sat by Pulse 96 93 Oximetry 10/16/16 10/16/16 10/16/16 08:04 08:08 09:05 Temperature Pulse Rate 63 Respiratory 18 16 16 Rate Blood Pressure (mmHg) O2 Sat by Pulse 93 Oximetry Oxygen Devices in Use Now: None Appearance: Female patient, ambulating in room, NAD Eyes: No Scleral Icterus Ears/Nose/Mouth/Throat: Clear Oropharnyx, Mucous Membranes Moist Neck: NL Appearance and Movements; NL JVP Respiratory: Symmetrical Chest Expansion and Respiratory Effort, Clear to Auscultation Cardiovascular: NL Sounds; No Murmurs; No JVD, RRR Abdominal: - - abd soft, incision intact Neurological: Alert and Oriented x 3, NL Gait, NL Muscle Strength and Tone Result Diagrams: 10/16/16 08:40 10/16/16 05:41 Microbiology and Other Data: Microbiology 10/12/16 21:45 Aerobic Blood Culture - Preliminary Blood Venous No Growth Day 1 Anaerobic Blood Culture - Preliminary No Growth Day 1 10/12/16 21:50 Aerobic Blood Culture - Preliminary Blood Venous No Growth Day 1 Anaerobic Blood Culture - Preliminary No Growth Day 1 Assess/Plan/Problems-Billing Assessment: Mr. Mejia is a 41 yo female with a PMH of CVA, chronic low back pain and hyperlipidemia who was admitted on 10/06/16 with SBO found to be secondary to bezoar. - Patient Problems (1) SBO (small bowel obstruction) Code(s): K56.69 - OTHER INTESTINAL OBSTRUCTION Comment: POD # 9 s/p ex lap and removal of bezoar. Management per surgical team. 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 Continue clopidogrel. (5) Hyperlipidemia Code(s): E78.5 - HYPERLIPIDEMIA, UNSPECIFIED Comment: Resume statin. (6) DVT prophylaxis Comment: Heparin SQ (7) Full code status Code(s): Z78.9 - OTHER SPECIFIED HEALTH STATUS Status and Disposition: Inpatient. D/c to home with surgical follow-up.
--- NOTE | 2016-10-17 11:42 | DS ---
CC: Dr. Elijah Thompson at [facility] * DISCHARGE SUMMARY: DATE OF ADMISSION: 10/06/16 DATE OF DISCHARGE: 10/16/16 ATTENDING SURGEON: Dr. Chaparro Vick * (DICTATED BY RUSLAN CABRERA) HOSPITAL COURSE: Please refer to admission history and physical from 10/06/16. Briefly, the patient was admitted with evidence of small bowel obstruction with concern for internal hernia. She did not respond to conservative measures and was taken to the operating room on 10/07/16. Surgery included a diagnostic laparoscopy converted to an exploratory laparotomy with finding of an internal hernia as well as a phytobezoar. The hernia was reduced and repaired and an enterotomy made for delivery of the bezoar with subsequent closure of the enterotomy. The patient's postoperative course was remarkable for ileus, which continued until around postop day 4 or 5 with passage of first flatus. She did have a temperature spike and tachycardia on postop day 6 associated with low O2 saturation. A chest x-ray showed findings consistent with atelectasis. Blood cultures were drawn, which were subsequently no growth and Zosyn was initiated, but was then stopped after [address] of the abdomen and pelvis at that time showed mild proximal small bowel dilatation, some free fluid, and large amount of stool in the colon. She was subsequently given an enema with positive results. Her ileus gradually resolved over the next day or two. On postop day 7, she had spontaneous drainage from the superior portion of her midline incision, which had appearance of a seroma. Dr. Ramírez removed a few flor and probed the wound, revealing no additional collection and no signs of active infection. This was packed with sterile gauze for a day and a half, and on the day of discharge (postoperative day 8), this was reapproximated with Steri-Strips. Drainage at that point was still a moderate amount of mostly serous fluid. The patient was afebrile. Pain was under good control with oral oxycodone only. She will resume her usual meds on discharge. She has a followup in our office on 10/22/16. RUSLAN CABRERA [id number]/CPS #: [id number] [facility]
== END 2016-10-16 11:15 | disposition home or self-care (01) | DRG 345 ==
LOC: ED 18:08 → SSU 10-06 00:19
PROVIDERS: ADMIT Hospitalist; ATTEND Hospitalist
PROC: 0DC80ZZ Extirpation of Matter from Small Intestine, Open Approach (ICD-10-PCS; 2016-10-07)
PROC: 0WQF0ZZ Repair Abdominal Wall, Open Approach (ICD-10-PCS; 2016-10-07)
PROC: 0WJF4ZZ Inspection of Abdominal Wall, Percutaneous Endoscopic Approach (ICD-10-PCS; 2016-10-07)
PROC: 0H97XZZ Drainage of Abdomen Skin, External Approach (ICD-10-PCS; principal; 2016-10-15)
DX: K46.0 Unspecified abdominal hernia with obstruction, without gangrene (principal); K51.90 Ulcerative colitis, unspecified, without complications; R18.8 Other ascites; T18.3XXA Foreign body in small intestine, initial encounter; K56.7 Ileus, unspecified; Q21.1 Atrial septal defect; I69.351 Hemiplegia and hemiparesis following cerebral infarction affecting right dominant side; J98.11 Atelectasis; L76.34 Postprocedural seroma of skin and subcutaneous tissue following other procedure; K21.9 Gastro-esophageal reflux disease without esophagitis; G89.29 Other chronic pain; M54.5 Low back pain; F32.9 Major depressive disorder, single episode, unspecified; R40.2412 Glasgow coma scale score 13-15, at arrival to emergency department; E78.5 Hyperlipidemia, unspecified; E66.3 Overweight; E83.42 Hypomagnesemia; X58.XXXA Exposure to other specified factors, initial encounter; D64.9 Anemia, unspecified; R60.0 Localized edema; Y83.8 Other surgical procedures as the cause of abnormal reaction of the patient, or of later complication, without mention of misadventure at the time of the procedure; Y92.239 Unspecified place in hospital as the place of occurrence of the external cause; Z90.49 Acquired absence of other specified parts of digestive tract; Z90.710 Acquired absence of both cervix and uterus; Z88.5 Allergy status to narcotic agent; Z98.84 Bariatric surgery status; Z82.49 Family history of ischemic heart disease and other diseases of the circulatory system; Z82.61 Family history of arthritis; Z87.891 Personal history of nicotine dependence; Z83.3 Family history of diabetes mellitus; Z83.79 Family history of other diseases of the digestive system; Z83.49 Family history of other endocrine, nutritional and metabolic diseases; Z68.27 Body mass index [BMI] 27.0-27.9, adult; Y92.9 Unspecified place or not applicable; Z53.31 Laparoscopic surgical procedure converted to open procedure
CPT/HCPCS: 36415; 71010; 74174; 74177; 80048; 80053; 81003; 81015; 83540; 83550; 83690; 83735; 84100; 84484; 84702; 85025; 86141; 87040; 88300; 93005; 94760; A9270-GY; A9579; J0690; J1100; J1170; J1644; J1885; J1940; J2060; J2250; J2270; J2405; J2543; J2704; J3010; J3480; Q9967

== ENCOUNTER 2016-10-24 06:17 | Observation (INO) | payer MEDICARE ==
[2016-10-24] MEDS ORDERED: NS 0.9% 1000 ML* 1,000 ML IV ONE ×2 (07:08→12:39)
[2016-10-24] MEDS ORDERED: Ondansetron ODT TAB* 4 MG PO ONE (07:59)
[2016-10-24] MEDS ORDERED: Morphine INJ* 4 MG/ML 1 ML SYRINGE IV ONE (07:59)
[2016-10-24] MEDS ORDERED: Ondansetron INJ* 2 MG/ML VIAL ONE (08:03)
[2016-10-24] MEDS ORDERED: Ondansetron INJ* 2 MG/ML VIAL IV ONE ×2 (08:04→09:38)
[2016-10-24] MEDS ORDERED: fentaNYL* 50 MCG/ML 2 ML VIAL (100 MCG VIAL) IV SLOW PU ONE ×2 (08:07→11:13)
[2016-10-24 08:18] LABS: Albumin 3.5 g/dL (3.2-5.2); BUN/Creatinine Ratio 16.7 (8-20); C Reactive Protein 18.33 mg/L (< 5.00); Calcium 9.3 mg/dL (8.6-10.3); EGFR African American 125.7 (>60); EGFR Non-African American 97.7 (>60); Globulin 4.1 g/dL (2-4); Total Bilirubin 0.4 mg/dL (0.2-1.0); Total Protein 7.6 g/dL (6.4-8.9)
[2016-10-24 08:20] LABS: Hematocrit 36 % (35-47); Hemoglobin 11.6 g/dl (12.0-16.0); Mean Corpuscular HGB Conc 32 g/dl (31-36); Mean Corpuscular Hemoglobin 23 pg (27-31); Mean Platelet Volume 8 um3 (7.4-10.4); Red Blood Count 5.02 10^6/ul (4.0-5.4); Red Cell Distribution Width 17 % (10.5-15); White Blood Count 10.5 10^3/ul (3.5-10.8)
[2016-10-24 08:21] LABS: Comments Flag Yes
[2016-10-24 08:22] LABS: Add Diff/Slide Review? Slide Review Added; Mean Corpuscular Volume 73 fL (80-97)
[2016-10-24 08:26] LABS: Potassium 4.2 mmol/L (3.5-5.0)
--- NOTE | 2016-10-24 09:18 | RAD ---
Indication: Small bowel obstruction with bezoar and hernia repair October 08. Acute abdominal pain. Comparison: October 13, 2016 and October 03, 2016 CT exams. Technique: Supine and upright views of the abdomen. Report: Long segment mild to moderately dilated small bowel loops with air-fluid levels. Bowel anastomosis staple lines at the RIGHT and LEFT abdomen. Gallbladder fossa level surgical clips. Small volume of stool in the sigmoid colon and rectum. No evidence for free air. No suspicious calcifications or mass effect. Clear visualized lung bases. IMPRESSION: Ileus versus small bowel obstruction. Negative for free air.
[2016-10-24] MEDS ORDERED: Morphine INJ* 4 MG/ML 1 ML SYRINGE IM ONE (09:38)
[2016-10-24] MEDS ORDERED: Iohexol 300* (CONTRAST) 10 ML SDV IV ONE (11:30)
--- NOTE | 2016-10-24 12:12 | RAD ---
INDICATION: Abdominal pain. Post gastric bypass. Post appendectomy and cholecystectomy. COMPARISON: Abdomen radiograph of the same date and October 13, 2016 CT. TECHNIQUE: Multidetector CT images were obtained from the lung bases to the ischial tuberosities with 85 mL Omnipaque 300 IV and oral contrast. Multiplanar reformation. REPORT: Unremarkable visualized inferior thorax. Post cholecystectomy. Mild intra and extrahepatic biliary dilatation without change. The common bile duct measures only 1.1 cm maximum diameter which may be normal in setting of prior cholecystectomy. No suspicious lesions evident along the course of the common bile duct. No focal hepatic lesions. No suspicious pancreatic abnormality. Unremarkable spleen. Postsurgical change of Mario-en-Y gastric bypass with the Mario limb extending cephalad anterior to the transverse colon. Moderate dilatation of jejunal and ileal bowel loops measuring up to 3.3 cm diameter with air-fluid levels. There is long segment mural thickening of the distal but not terminal ileum reference axial images 38-47. Nonetheless contrast extends to the ileocecal valve. The terminal ileum is unremarkable. Unremarkable colon is largely decompressed through the descending sigmoid junction. Small volume of diffuse ascites. Negative for free air. Negative for hernias. Interval decrease in magnitude of fat stranding along the midline laparotomy site compared with the October 13, 2016 exam. No loculated soft tissue plane abscess collection evident. Unremarkable adrenal glands. Unremarkable kidneys with symmetric nephrograms and pyelograms. Unremarkable nondilated ureters and moderately distended urinary bladder as well as the anteverted uterus and adnexal regions. Negative for lymphadenopathy. Normal diameter abdominal aorta and iliac arteries. Partial physiologic distention of the IVC. 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 Suggestion of bone graft across the posterior elements at L4-L5. No suspicious focal osseous lesions evident. IMPRESSION: 1. Long segment moderate mural thickening of the distal but not terminal ileum with resulting partial small bowel obstruction. Consider infectious and inflammatory etiologies. 2. Postsurgical change of Mario-en-Y gastric bypass without related complication evident. 3. Post cholecystectomy and appendectomy. 4. Small ascites. Negative for free air.
[2016-10-24] MEDS ORDERED: Ondansetron INJ* 2 MG/ML VIAL IV PRN (12:59)
[2016-10-24] MEDS ORDERED: Cyclobenzaprine TAB* 10 MG PO PRN (13:02)
--- NOTE | 2016-10-24 14:38 | HP ---
CC: Dr. Elijah Thompson; [facility] HISTORY AND PHYSICAL UPDATE: DATE OF ADMISSION: 10/24/16 HISTORY OF PRESENT ILLNESS: Ms. Mejia is a 41-year-old female, who was recently admitted on 09/19 11/05, with complaints of abdominal pain, workup including CAT scan of the abdomen and pelvis, was co nsistent with a small-bowel obstruction. There was concern for internal hernia. The patient underw ent operative intervention on 10/07/16. Briefly, she underwent a diagnostic laparoscopy, converted to laparotomy for a repair of an internal hernia, reduction of internal hernia, removal of small bow el bezoar that required enterotomy and closure. She spent 10 days in the hospital and was discharge d on 10/16/16. Recently seen in my office for followup visit. Her postoperative course was complic ated with small wound dehiscence that was treated with dressing changes at the superior aspect of th e incision site. The patient's intake was minimal. She was passing flatus and having bowel movemen ts and still complaining of abdominal pain on my office visit 2 days ago. The patient presented to the emergency room in the overnight period with again complaints of severe right-sided abdominal pain accompanied with decreased p.o. intake. She is having flatus, but no bow el movements. Denied any fever or chills. The patient is status post CVA with relatively flat affec t. PAST MEDICAL HISTORY: Lower back pain, hypercholesterolemia, and CVA. MEDICATIONS: Include: 1. Trazodone. 2. Senna. 3. Oxycodone. 4. Iron. 5. Neurontin. 6. Folate. 7. Flexeril. 8. Plavix. 9. Lipitor. 10. Adderall. REVIEW OF SYSTEMS: No fevers or chills. No significant weight loss or weight gain. Decreased appe tite as described. Abdominal pain as described. No dysuria. Positive flatus and no change in her b owel habits. PHYSICAL EXAMINATION GENERAL: Alert and oriented x3, in no apparent distress. VITAL SIGNS: Today, she is afebrile. Vital signs are stable. Blood pressure is 114/79, heart rate 67. HEENT: Normocephalic, atraumatic. Sclerae anicteric. Mucous membranes are moist. LUNGS: Clear to auscultation bilaterally. ABDOMEN: Soft, nondistended, tender in the right upper quadrant and the left upper quadrant along t he incision site. Incision site has Steri-Strips in place with scant drainage at the superior aspec t. Hypoactive bowel sounds. No hernias noted. No guarding. No rebound tenderness. RECTAL EXAM: Not performed. EXTREMITIES: Within normal limits. DIAGNOSTIC STUDIES/LAB DATA: The patient underwent labs which showed a white count of 10.5, platel ets of 961, H and H 11.6/36. Chemistry panel with an elevated CRP of 18.3. The patient underwent a CAT scan of the abdomen and pelvis, which showed a portion of the small shannan l with mural thickening, this looks like likely the spot where the patient underwent the enterotomy and closure. These images were reviewed, the patient does have free fluid but no free air. No absc esses. Contrast reaching the colon. IMPRESSION AND PLAN: Postoperative changes with pain and inflammation of the small bowel. The randolph ent's nutrition status is improving after recent discharge, but it still remains a suspect. Plan is for admission, IV fluids, pain control, nausea medication, bariatric liquid diet, and encouraging p .o. intake, and observation status with possible discharge home tomorrow. I have outlined this to er and she understands the plan. [id number]/[facility] #: [id number]
[2016-10-24] MEDS: Gabapentin CAP(*) 100 MG PO SCH ×2 (14:40→20:56)
[2016-10-24] MEDS: Heparin VIAL(*) 5000 UNITS/ML VIAL (FIVE THOUSAND) SUBCUT SCH ×2 (14:40→21:02)
[2016-10-24] MEDS: oxyCODONE/Acetamin 5/325 MG* TAB PO PRN ×2 (14:40→23:13)
[2016-10-24 15:55] LABS: Urine Bilirubin Negative (Negative); Urine Glucose Negative (Negative); Urine Nitrite Negative (Negative)
[2016-10-24] MEDS: Amphetamine MIXED SALT TAB* 10 MG TAB PO SCH ×2 (17:15→20:59)
[2016-10-24] MEDS ORDERED: HYDROmorphone* 1 MG/ML 1 ML SYR ONE (18:12)
--- NOTE | 2016-10-24 18:18 | ED ---
Sonali Arguello SooYoung, scribed for Phil Oro MD on 10/24/16 at 0713 . Abdominal Pain/Female - HPI Summary HPI Summary: A 41 y/o F presents s/p SBO and hernia surgery on 10/08/16 and was d/c home on with c/o intermittent R-sided abd pain onset 2100 last night. Pain described as cramping and is non-radiating. At its worst, the pain is 10 out of 10. Associated sx: flatulence. Denies n/v, fever. She last ate at 1400 yesterday , her current diet is soft foods. Last BM was yesterday AM. She's unsure if the pain is similar to the pain she had with the SBO. She took some sleep medicine last night. Surgery performed by Dr. Vick. Abd PSHx includes , bariatric surgery with junior Mead, cholecystectomy. - History of Current Complaint Chief Complaint: EDAbdPain Stated Complaint: ADB PAIN POST SURGERY Hx Obtained From: Patient Hx Last Menstrual Period: 08/24/13 Onset/Duration: Lasting Hours - onset last night 2100, Still Present Timing: Intermittent Episode Lasting Severity Initially: Moderate Severity Currently: Moderate Pain Intensity: 7 Pain Scale Used: 0-10 Numeric - 10 out of 10 at its worst Location: Discrete At: RUQ, Discrete At: RLQ Radiates: No Character: Cramping Associated Signs and Symptoms: Positive: Other: - pos: flatulence. Negative: Fever, Nausea, Vomiting Allergies/Adverse Reactions: Allergies Allergy/AdvReac Type Severity Reaction Status Date / Time Buprenorphine [From Niurka] Allergy Rash Verified 10/24/16 13:58 Morphine AdvReac Intermediate Nausea Verified 10/24/16 13:58 PMH/Surg Hx/FS Hx/Imm Hx Previously Healthy: No Endocrine/Hematology History: Reports: Hx Anticoagulant Therapy, Hx Anemia - HX OF Denies: Hx Diabetes Cardiovascular History: Reports: Other Cardiovascular Problems/Disorders - PFO, "hole in the heart" Denies: Hx Congestive Heart Failure, Hx Hypertension, Hx Pacemaker/ICD Respiratory History: Reports: Hx Asthma - as a child GI History: Reports: Hx Gastroesophageal Reflux Disease, Other GI Disorders - ulcerative cholitis History: Denies: Hx Renal Disease Musculoskeletal History: Reports: Hx Back Problems - chronic low back pain S/P L4 TO L5 HEMILAMINECTOMY, Other Musculoskeletal History - 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, sciatica Sensory History: Reports: Hx Contacts or Glasses - GLASSES Denies: Hx Hearing Aid Opthamlomology History: Reports: Hx Contacts or Glasses - GLASSES Psychiatric History: Reports: Hx Depression - ON MEDICATION FOR Denies: Hx Panic Disorder - Cancer History Cancer Type, Location and Year: [place] 10/2012 - Surgical History Surgery Procedure, Year, and Place: laminectomy 2009 [place] [id number] [place] [id number]. [place] [facility] [place] Anesthesia Reactions: No - Immunization History Date of Tetanus Vaccine: UNK Date of Influenza Vaccine: 2012 Infectious Disease History: No Infectious Disease History: Denies: Hx Clostridium Difficile, Hx Hepatitis, Hx Human Immunodeficiency Virus (HIV), Hx of Known/Suspected MRSA, Hx Shingles, Hx Tuberculosis, Hx Known/ Suspected VRE, Hx Known/Suspected VRSA, History Other Infectious Disease, Traveled Outside the [place] in Last 30 Days - Family History Known Family History: Positive: Hypertension, Other - RA - Social History Occupation: Unemployed Lives: With Family Alcohol Use: None Alcohol Amount: wine Hx Substance Use: No Substance Use Type: Reports: None Substance Use Comment - Amount & Last Used: oxycodone Hx Tobacco Use: Yes Smoking Status (MU): Former Smoker Type: Cigarettes Amount Used/How Often: 1 PPD X 15 YEARS Have You Smoked in the Last Year: Yes Review of Systems Negative: Fever Positive: Abdominal Pain, Other - pos: flatulence. Negative: Vomiting, Nausea All Other Systems Reviewed And Are Negative: Yes Physical Exam - Summary Physical Exam Summary: VITAL SIGNS: Reviewed. GENERAL: Patient is a well-developed and nourished female who is lying comfortable in the stretcher. Patient is not in any acute respiratory distress. HEAD AND FACE: Normocephalic and atraumatic. EYES: PERRLA, EOMI x 2, No injected conjunctiva. EARS: Hearing grossly intact. Ear canals and tympanic membranes are WNL. MOUTH: Oropharynx within normal limits. DRY MOUTH. NECK: Supple, trachea is midline, no adenopathy, no JVD. CHEST: Symmetric, no tenderness at palpation LUNGS: Clear to auscultation bilaterally. No wheezing or crackles. CVS: RRR, S1 and S2 present, no murmurs or gallops appreciated. ABDOMEN: Soft. No signs of distention. Positive bowel sounds. No rebound, no guarding, and no masses palpated. No abdominal bruit or pulsations. R-SIDED ABD TENDERNESS. SCARS ARE HEALING, CLEAN, DRY AND INTACT. EXTREMITIES: FROM in all major joints, no edema, no cyanosis or clubbing. NEURO: Alert and oriented x 3. No acute neurological deficits. Speech is normal. SKIN: Dry and warm Triage Information Reviewed: Yes Vital Signs On Initial Exam: Initial Vitals Temp Pulse Resp BP Pulse Ox 97.1 F 113 20 127/82 98 10/24/16 06:20 10/24/16 06:20 10/24/16 06:20 10/24/16 06:20 10/24/16 06:20 Vital Signs Reviewed: Yes Diagnostics - Vital Signs Vital Signs Temp Pulse Resp BP Pulse Ox 10/24/16 06:44 97.2 F 72 14 119/79 98 10/24/16 06:20 97.1 F 113 20 127/82 98 - Laboratory Lab Results: Lab Results 10/24/16 10/24/16 10/24/16 Range/Units 07:56 07:56 07:56 WBC 10.5 (3.5-10.8) 10^3/ul RBC 5.02 (4.0-5.4) 10^6/ul Hgb 11.6 L (12.0-16.0) g/dl Hct 36 (35-47) % MCV 73 L (80-97) fL MCH 23 L (27-31) pg MCHC 32 (31-36) g/dl RDW 17 H (10.5-15) % Plt Count 961 H D (150-450) 10^3/ul MPV 8 (7.4-10.4) um3 Neut % (Auto) 75.7 (38-83) % Lymph % (Auto) 16.1 L (25-47) % [place] % (Auto) 6.0 (1-9) % Eos % (Auto) 1.5 (0-6) % Baso % (Auto) 0.7 (0-2) % Absolute Neuts (auto) 8.0 H (1.5-7.7) 10^3/ul Absolute Lymphs (auto) 1.7 (1.0-4.8) 10^3/ul Absolute Monos (auto) 0.6 (0-0.8) 10^3/ul Absolute Eos (auto) 0.2 (0-0.6) 10^3/ul Absolute Basos (auto) 0.1 (0-0.2) 10^3/ul Absolute Nucleated RBC 0.02 10^3/ul Nucleated RBC % 0.2 Sodium 138 (133-145) mmol/L Potassium 4.2 (3.5-5.0) mmol/L Chloride 104 (101-111) mmol/L Carbon Dioxide 26 (22-32) mmol/L Anion Gap 8 (2-11) mmol/L BUN 11 (6-24) mg/dL Creatinine 0.66 (0.51-0.95) mg/dL Est GFR ( Amer) 125.7 (>60) Est GFR (Non-Af Amer) 97.7 (>60) BUN/Creatinine Ratio 16.7 (8-20) Glucose 90 (70-100) mg/dL Lactic Acid 0.9 (0.5-2.0) mmol/L Calcium 9.3 (8.6-10.3) mg/dL Total Bilirubin 0.40 (0.2-1.0) mg/dL AST 13 (13-39) U/L ALT 7 (7-52) U/L Alkaline Phosphatase 75 (34-104) U/L C-Reactive Protein 18.33 H (< 5.00) mg/L Total Protein 7.6 (6.4-8.9) g/dL Albumin 3.5 (3.2-5.2) g/dL Globulin 4.1 H (2-4) g/dL Albumin/Globulin Ratio 0.9 L (1-3) Amylase 34 (29-103) U/L Lipase 38 (11.0-82.0) U/L Result Diagrams: 10/24/16 07:56 10/24/16 07:56 Lab Statement: Any lab studies that have been ordered have been reviewed, and results considered in the medical decision making process. - Radiology ABD XR Xray Interpretation: Positive (See Comments) Radiology Interpretation Completed By: Radiologist - IMPRESSION: Ileus vs SBO. Negative for free air. - CT ABD/PEL CT Interpretation: Positive (See Comments) - IMPRESSION: 1. Long segment moderate mural thickening of the distal but not terminal ileum with resulting partial small bowel obstruction. Consider infectious and inflammatory etiologies. 2. Postsurgical change of Mario-en-Y gastric bypass without related complication evident. 3. Post cholecystectomy and appendectomy. 4. Small ascites. Negative for free air. CT Interpretation Completed By: Radiologist - EKG 0720 Cardiac Rate: Bradycardia - 56 bpm EKG Rhythm: Sinus Bradycardia ST Segment: Normal - no ST elevation Abdominal Pain Fem Course/Dx - Course Course Of Treatment: Pt is a 41 y/o F s/p SBO and hernia surgery on 10/08/16, and was d/c home on 10/16/16, presents with c/o intermittent R-sided abd pain onset 2100 last night. Pain described as severe, cramping and is non-radiating. Associated sx: flatulence. Denies n/v, fever. She last ate at 1400 yesterday, her current diet is soft foods. Last BM was yesterday AM. She's unsure if the pain is similar to the pain she had with the SBO. She took some sleep medicine last night. Surgery performed by Dr. Vick. Abd PSHx includes , bariatric surgery with Dr. Epperson [facility], cholecystectomy. Blood work is without significant abnormalities except CRP is 18.33. EKG is sinus ryan at [address] elevation. ABD XR impressions is "Ileus vs SBO. Negative for free air." ABD/PEL CT shows "1. Long segment moderate mural thickening of the distal but not terminal ileum with. resulting partial small bowel obstruction. Consider infectious and inflammatory etiologies. 2. Postsurgical change of Mario- en-Y gastric bypass without related complication evident. 3. Post cholecystectomy and appendectomy. 4. Small ascites. Negative for free air.". Consulted with Dr. Vick, surgery, who came and assessed the pt, requested pt be admitted to his service for further workup and management. Pt given fluids, Morphine, Zofran, Fentanyl in ED. Pt is much more confortable. A&Ox3 and hemodynamically stable. - Diagnoses Differential Diagnosis: Positive: Bowel Obstruction, Constipation, Gall Bladder Disease, Renal Colic, Urinary Tract Infection Provider Diagnoses: Partial small bowel obstruction - Provider Notifications Discussed Care Of Patient With: Chaparro Vick - surgery Time Discussed With Above Provider: 07:45 Instructed by Provider To: Other - Recommends CT per bariatric protocol. Discharge - Discharge Plan Condition: Stable Disposition: ADMITTED TO [facility] Consult Consult: 1124: Consult with Dr. Vick, surgery Wants CT results before making recommendations. 1242: Consult with Dr. Vick, surgery Will see pt in ED. Will admit. The documentation as recorded by the Sonali devine SooYoung accurately reflects the service I personally performed and the decisions made by me, Phil Oro MD.
[2016-10-24] MEDS ORDERED: HYDROmorphone* 1 MG/ML 1 ML SYR IV PRN (18:22)
[2016-10-24] MEDS: Docusate CAP* 100 MG PO SCH (20:59)
[2016-10-25] MEDS: Heparin VIAL(*) 5000 UNITS/ML VIAL (FIVE THOUSAND) SUBCUT SCH (05:00)
[2016-10-25 06:16] LABS: Hematocrit 28 % (35-47); Hemoglobin 8.9 g/dl (12.0-16.0); Mean Corpuscular HGB Conc 32 g/dl (31-36); Mean Corpuscular Hemoglobin 23 pg (27-31); Mean Platelet Volume 7 um3 (7.4-10.4); Red Blood Count 3.83 10^6/ul (4.0-5.4); Red Cell Distribution Width 17 % (10.5-15); White Blood Count 7.3 10^3/ul (3.5-10.8)
[2016-10-25 06:18] LABS: Comments Flag Yes
[2016-10-25 06:19] LABS: Mean Corpuscular Volume 72 fL (80-97)
[2016-10-25 06:30] LABS: BUN/Creatinine Ratio 17.5 (8-20); Calcium 8.3 mg/dL (8.6-10.3); EGFR African American 148.9 (>60); EGFR Non-African American 115.8 (>60); Potassium 4.1 mmol/L (3.5-5.0)
[2016-10-25] MEDS: oxyCODONE/Acetamin 5/325 MG* TAB PO PRN ×2 (06:48→11:21)
[2016-10-25 08:02] VITALS: BP 105/65
[2016-10-25] MEDS ORDERED: Clopidogrel TAB* 75 MG PO SCH (09:00)
[2016-10-25] MEDS: Amphetamine MIXED SALT TAB* 10 MG TAB PO SCH (09:13)
[2016-10-25] MEDS: Gabapentin CAP(*) 100 MG PO SCH (09:13)
[2016-10-25] MEDS: Docusate CAP* 100 MG PO SCH (09:13)
--- NOTE | 2016-10-25 14:39 | DS ---
CC: [facility]; Dr. Elijah Thompson. * DISCHARGE SUMMARY: DATE OF ADMISSION: 10/24/16 DATE OF DISCHARGE: 10/25/16 HISTORY: Ms. Mejia is a 41-year-old female who is just under 2 weeks status post exploratory laparotomy and repair of internal hernia with small bowel obstruction, enterotomy, and removal of bezoar, who presented yesterday with severe abdominal pain. Workup in the emergency room included labs and a CAT scan. Findings were consistent with enteritis, likely secondary to surgery. The patient was treated with IV fluids and pain medication. She had run out of her pain medications at home. She was observed in the overnight and showed some improvement and plan was for discharge home on hospital day 2. PHYSICAL EXAMINATION: On the day of discharge, the patient was afebrile, vital signs stable. Alert and oriented x3, in no apparent distress. Head, ears, eyes , and throat: Normocephalic and atraumatic. Sclerae anicteric. Mucous membranes are moist. Neck: No lymphadenopathy. Lungs: Clear to auscultation bilaterally. Abdomen: Soft, nondistended, and nontender. Steri-Strips removed and midline incision appeared intact with mild wound dehiscence approximately 1 cm x 1 mm x 1 mm deep with good granulation tissue and no tunneling. Normoactive bowel sounds. Extremities: Within normal limits. IMPRESSION: Abdominal pain, status post exploratory laparotomy. No evidence of surgical abdomen. PLAN: Our plan is for discharge home for followup in our office next week. She will resume all her previous medications and we have given another prescription for Percocet. [id number]/[facility] #: [id number] [facility]ITAL[facility]
== END 2016-10-25 12:45 | disposition home or self-care (01) ==
LOC: ED 06:17 → SSU 12:59
PROVIDERS: ADMIT Surgery; ATTEND Surgery
DX: R10.9 Unspecified abdominal pain (principal); K56.60 Unspecified intestinal obstruction; R11.2 Nausea with vomiting, unspecified; R50.9 Fever, unspecified; M54.5 Low back pain; Z86.73 Personal history of transient ischemic attack (TIA), and cerebral infarction without residual deficits; Z87.891 Personal history of nicotine dependence
CPT/HCPCS: 36415; 74020; 74177; 80048; 80053; 81003; 82150; 83605; 83690; 85025; 86140; 93005; 96374; 96375; 99284; A9270-GY; G0378; J1170; J1644; J2270; J2405; J3010; Q9967

== ENCOUNTER 2017-09-30 20:24 | Inpatient (IN) | payer MEDICARE, OTHER ==
[2017-09-30] MEDS ORDERED: NS 0.9% 1000 ML* 2,000 ML IV ONE (20:51)
[2017-09-30 21:43] LABS: ABS Basophils 0.2 10^3/ul (0-0.2); ABS Eosinophils 0.2 10^3/ul (0-0.6); ABS Lymphocytes 2.9 10^3/ul (1.0-4.8); ABS Monocytes 0.8 10^3/ul (0-0.8); ABS Nucleated RBC 0 10^3/ul; Eosinophil % 1.8 % (0-6); Hematocrit 32 % (35-47); Hemoglobin 9.4 g/dl (12.0-16.0); Lymphocyte % 22.1 % (25-47); Mean Corpuscular HGB Conc 30 g/dl (31-36); Mean Corpuscular Hemoglobin 19 pg (27-31); Mean Corpuscular Volume 63 fL (80-97); Mean Platelet Volume 9.4 um3 (7.4-10.4); Nucleated Red Blood Cells % 0.1; Platelet Count 299 10^3/ul (150-450); Red Blood Count 5.02 10^6/ul (4.00-5.40); Red Cell Distribution Width 19 % (10.5-15); White Blood Count 13.1 10^3/ul (3.5-10.8)
[2017-09-30] MEDS ORDERED: Morphine VIAL* 10 MG/ML 1 ML VIAL IV ONE (22:24)
[2017-09-30] MEDS ORDERED: Ondansetron INJ* 2 MG/ML VIAL IV ONE (22:24)
[2017-09-30] MEDS ORDERED: Iohexol 300* (CONTRAST) 10 ML SDV IV ONE (22:41)
[2017-09-30] MEDS ORDERED: Morphine VIAL* 4 MG/ML VIAL (1 ml vial) IV ONE (22:51)
[2017-09-30] MEDS ORDERED: diPHENhydraMINE IV* 50 MG/ML 1 ml VIAL (BENADRYL) IV ONE (23:17)
[2017-09-30] MEDS ORDERED: diPHENhydraMINE IV* 50 MG/ML 1 ml VIAL (BENADRYL) ONE (23:22)
[2017-09-30] MEDS ORDERED: HYDROmorphone INJ* 1 MG/ML CARPUJECT SYRINGE IV ONE (23:23)
--- NOTE | 2017-10-01 00:10 | ED ---
Abdominal Pain/Female - HPI Summary HPI Summary: Patient complains of sudden onset diffuse abdominal pain 2 hours ago after eating. Abdominal pain described as bilateral, diffuse, sharp, constant, 10 out of 10. History of SBO, Mario-en-Y. Denies fever, cough, sore throat, CP, SOB, N/V/D, constipation, change in urine, vaginal symptoms. Medical history CVA 5 years ago. Abdominal/pelvic surgical history is cholecystectomy, appendectomy, Mario-en-Y, SBO correction, , myomectomy. - History of Current Complaint Chief Complaint: EDAbdPain Stated Complaint: ABD PAIN Time Seen by Provider: 09/30/17 22:16 Hx Obtained From: Patient Hx Last Menstrual Period: 08/24/13 Onset/Duration: Sudden Onset Timing: Constant Severity Initially: Severe Severity Currently: Severe Pain Intensity: 10 Pain Scale Used: 0-10 Numeric Location: Diffuse Radiates: No Character: Sharp Aggravating Factor(s): Nothing Alleviating Factor(s): Nothing Allergies/Adverse Reactions: Allergies Allergy/AdvReac Type Severity Reaction Status Date / Time buprenorphine [From Niurka] Allergy Rash Verified 09/30/17 20:29 morphine AdvReac Nausea Verified 10/01/17 07:46 PMH/Surg Hx/FS Hx/Imm Hx Endocrine/Hematology History: Reports: Hx Anticoagulant Therapy, Hx Anemia - HX OF Denies: Hx Diabetes Cardiovascular History: Reports: Other Cardiovascular Problems/Disorders - PFO, "hole in the heart" Denies: Hx Congestive Heart Failure, Hx Hypertension, Hx Pacemaker/ICD Respiratory History: Reports: Hx Asthma - as a child GI History: Reports: Hx Gastroesophageal Reflux Disease, Other GI Disorders - ulcerative cholitis History: Denies: Hx Renal Disease Musculoskeletal History: Reports: Hx Back Problems - chronic low back pain S/P L4 TO L5 HEMILAMINECTOMY, Other Musculoskeletal History - 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, sciatica Sensory History: Reports: Hx Contacts or Glasses - GLASSES Denies: Hx Hearing Aid Opthamlomology History: Reports: Hx Contacts or Glasses - GLASSES Psychiatric History: Reports: Hx Depression - ON MEDICATION FOR Denies: Hx Panic Disorder - Cancer History Cancer Type, Location and Year: [place] 10/2012 - Surgical History Surgery Procedure, Year, and Place: laminectomy 2009 appendectomy/ cholecystectomy [facility] [id number] [place] [id number] [facility] [place] Anesthesia Reactions: No - Immunization History Date of Tetanus Vaccine: UNK Date of Influenza Vaccine: 2013 Infectious Disease History: No Infectious Disease History: Denies: Hx Clostridium Difficile, Hx Hepatitis, Hx Human Immunodeficiency Virus (HIV), Hx of Known/Suspected MRSA, Hx Shingles, Hx Tuberculosis, Hx Known/ Suspected VRE, Hx Known/Suspected VRSA, History Other Infectious Disease, Traveled Outside the [place] in Last 30 Days - Family History Known Family History: Positive: Hypertension, Other - RA - Social History Alcohol Use: None Alcohol Amount: wine Hx Substance Use: No Substance Use Type: Reports: None Substance Use Comment - Amount & Last Used: oxycodone Hx Tobacco Use: Yes Smoking Status (MU): Former Smoker Type: Cigarettes Amount Used/How Often: 1 PPD X 15 YEARS Have You Smoked in the Last Year: Yes Review of Systems Constitutional: Negative Eyes: Negative ENT: Negative Cardiovascular: Negative Respiratory: Negative Positive: Abdominal Pain Genitourinary: Negative Musculoskeletal: Negative Skin: Negative Neurological: Negative Psychological: Normal All Other Systems Reviewed And Are Negative: Yes Physical Exam - Summary Physical Exam Summary: Abdomen diffusely tender with palpation. Triage Information Reviewed: Yes Vital Signs On Initial Exam: Initial Vitals Temp Pulse Resp BP Pulse Ox 96.8 F 65 20 140/94 100 09/30/17 20:29 09/30/17 20:29 09/30/17 20:29 09/30/17 20:29 09/30/17 20:29 Vital Signs Reviewed: Yes Appearance: Positive: Well-Appearing Skin: Positive: Warm Head/Face: Positive: Normal Head/Face Inspection Eyes: Positive: Normal Neck: Positive: Supple Respiratory/Lung Sounds: Positive: Clear to Auscultation Cardiovascular: Positive: Normal Abdomen Description: Negative: Distended, Guarding, [place] Tenderness Musculoskeletal: Positive: Normal Neurological: Positive: Normal Psychiatric: Positive: Normal AVPU Assessment: Alert - Howie Coma Scale Best Eye Response: 4 - Spontaneous Best Motor Response: 6 - Obeys Commands Best Verbal Response: 5 - Oriented Coma Scale Total: 15 Diagnostics - Vital Signs Vital Signs Temp Pulse Resp BP Pulse Ox 09/30/17 23:29 18 09/30/17 23:00 16 09/30/17 20:29 96.8 F 65 20 140/94 100 - Laboratory Lab Results: Lab Results 09/30/17 09/30/17 Range/Units 21:11 21:11 WBC 13.1 H (3.5-10.8) 10^3/ul RBC 5.02 (4.00-5.40) 10^6/ul Hgb 9.4 L (12.0-16.0) g/dl Hct 32 L (35-47) % MCV 63 L (80-97) fL MCH 19 L (27-31) pg MCHC 30 L (31-36) g/dl RDW 19 H (10.5-15) % Plt Count 299 (150-450) 10^3/ul MPV 9.4 (7.4-10.4) um3 Neut % (Auto) 68.8 (38-83) % Lymph % (Auto) 22.1 L (25-47) % [place] % (Auto) 6.1 (0-7) % Eos % (Auto) 1.8 (0-6) % Baso % (Auto) 1.2 (0-2) % Absolute Neuts (auto) 9.0 H (1.5-7.7) 10^3/ul Absolute Lymphs (auto) 2.9 (1.0-4.8) 10^3/ul Absolute Monos (auto) 0.8 (0-0.8) 10^3/ul Absolute Eos (auto) 0.2 (0-0.6) 10^3/ul Absolute Basos (auto) 0.2 (0-0.2) 10^3/ul Absolute Nucleated RBC 0 10^3/ul Nucleated RBC % 0.1 Sodium 138 (135-145) mmol/L Potassium 4.1 (3.5-5.0) mmol/L Chloride 109 (101-111) mmol/L Carbon Dioxide 23 (22-32) mmol/L Anion Gap 6 (2-11) mmol/L BUN 26 H (6-24) mg/dL Creatinine 0.65 (0.51-0.95) mg/dL Est GFR ( Amer) 119.8 (>60) Est GFR (Non-Af Amer) 99.0 (>60) BUN/Creatinine Ratio 40.0 H (8-20) Glucose 150 H (70-100) mg/dL Calcium 8.9 (8.6-10.3) mg/dL Total Bilirubin 0.20 (0.2-1.0) mg/dL AST 27 (13-39) U/L ALT 25 (7-52) U/L Alkaline Phosphatase 114 H (34-104) U/L Total Protein 7.5 (6.4-8.9) g/dL Albumin 4.0 (3.2-5.2) g/dL Globulin 3.5 (2-4) g/dL Albumin/Globulin Ratio 1.1 (1-3) Lipase 43 (11.0-82.0) U/L Result Diagrams: 10/01/17 08:05 10/01/17 08:05 Lab Statement: Any lab studies that have been ordered have been reviewed, and results considered in the medical decision making process. Abdominal Pain Fem Course/Dx - Course Course Of Treatment: Patient complains of sudden onset diffuse abdominal pain 2 hours ago after eating. Abdominal pain described as bilateral, diffuse, sharp, constant, 10 out of 10. History of SBO, Mario-en-Y. Denies fever, cough, sore throat, CP, SOB, N/V/D, constipation, change in urine, vaginal symptoms. Medical history CVA 5 years ago. Abdominal/pelvic surgical history is cholecystectomy, appendectomy, Mario-en-Y, SBO correction, , myomectomy. PE: Abdomen diffusely tender with palpation. Patient fell asleep after 0.5 MG Dilaudid, and 50 make IV Benadryl. Upon reawakening for CT patient again demanding pain medication. - Diagnoses Provider Diagnoses: SBO (small bowel obstruction) Discharge - Sign-Out/Discharge Documenting (check all that apply): Sign-Out Patient Signing out patient TO: Niranjan De Santiago - Discharge Plan Condition: Guarded Disposition: ADMITTED TO [facility] - Billing Disposition and Condition Condition: GUARDED Disposition: Admitted to [facility]
[2017-10-01] MEDS ORDERED: NS 0.9% 1000 ML* 1,000 ML IV ONE (00:11)
[2017-10-01] MEDS ORDERED: HYDROmorphone INJ* 2 MG/ML CARPUJECT SYRINGE IV SLOW PU ONE (04:15)
--- NOTE | 2017-10-01 04:21 | ED ---
Progress - EKG/XRAY/CT CT: Small bowel obstruction Course/Dx - Course Course Of Treatment: Patient complains of sudden onset diffuse abdominal pain 2 hours ago after eating. Abdominal pain described as bilateral, diffuse, sharp, constant, 10 out of 10. History of SBO, Mario-en-Y. Denies fever, cough, sore throat, CP, SOB, N/V/D, constipation, change in urine, vaginal symptoms. Medical history CVA 5 years ago. Abdominal/pelvic surgical history is cholecystectomy, appendectomy, Mario-en-Y, SBO correction, , myomectomy. PE: Abdomen diffusely tender with palpation. Patient fell asleep after 0.5 MG Dilaudid, and 50 make IV Benadryl. Upon reawakening for CT patient again demanding pain medication. - Diagnoses Provider Diagnoses: SBO (small bowel obstruction) - Provider Notifications Discussed Care Of Patient With: Alin Briscoe Time Discussed With Above Provider: 04:20 Instructed by Provider To: Admit As Inpatient Discharge - Sign-Out/Discharge Documenting (check all that apply): Patient Departure - Discharge Plan Condition: Guarded Disposition: ADMITTED TO [facility] Referrals: Elijah Thompson MD [Primary Care Provider] - - Billing Disposition and Condition Condition: GUARDED Disposition: Admitted to [facility]
--- NOTE | 2017-10-01 04:56 | HP ---
H&P (Free Text) History and Physical: PCP: Rober Thompson MD Date/Time: 10/01/2017 0430 CC: abdominal pain HPI: Mrs Mejia is a 42YO female HX CVA, PFO, chronic LBP, PCOS, Ruen-Y, SBO presents reporting mild abdominal pain after eating earlier yesterday with severe abdominal pain starting after supper around 2100 associated with sweats, nausea, & F/C. Last bowel movement was earlier yesterday and described as normal , no black or bloody content. She is unsure of last flatus. She is noted to have track church extensively on her RUE, not the left (her CVA was L cortical) and claims they are "bug bites". PMedHx L cortical embolic CVA PFO chronic LBP PCOS GERD Ambulatory Orders Nursing to reconcile. Cyanocobalamin (Vitamin B-12) [Vitamin B-12] 1,000 mcg PO DAILY 02/13/13 Oxycodone TAB(NF) [Oxycodone HCl 10 MG] 10 mg PO TID PRN 04/19/13 Atorvastatin Calcium [Lipitor] 10 mg PO BEDTIME 09/20/13 Cyclobenzaprine TAB* [Flexeril 10 MG TAB*] 5 mg PO TID PRN 04/22/15 Adderall 10 mg- 20 mg PO QID 11/12/15 Acetaminophen TAB* [Tylenol TAB*] 650 mg PO Q6H PRN #0 tab 10/16/16 Gabapentin CAP(*) [Neurontin 400 mg CAP(*)] 400 mg PO TID 01/04/17 Clopidogrel TAB* [Plavix TAB*] 75 mg PO DAILY 05/07/17 Folic Acid TAB* [Folvite TAB*] 1 mg PO DAILY 05/07/17 Iron Carb,Gl/FA/B12/C/Docusate [Ferralet 90] 1 tab PO DAILY 05/07/17 Sennosides/Docusate Sodium [Colace 2-in-1 8.6-50 mg] 1 - 2 tab PO DAILY Allergies buprenorphine [From Butrans] Allergy (Verified 09/30/17 20:29) Rash morphine Adverse Reaction (Verified 10/01/17 07:46) Nausea PSurgHx tonsillectomy cholecystectomy Ruen-Y appendectomy section fibroidectomy lumbar laminectomy SocHx: former smoker, denies alcohol & recreational drugs; 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 [employer]; full code status FamHx: positive for DM, HTN, HLD ROS: as above, otherwise reviewed and all were negative vitals: Vital Signs Temp 36.0 C 09/30/17 20:29 Pulse 65 10/01/17 03:00 Resp 20 10/01/17 04:44 BP 121/65 10/01/17 02:11 Pulse Ox 99 10/01/17 03:00 Intake & Output 09/30/17 09/30/17 10/01/17 11:59 23:59 11:59 Intake Total 4000 Balance 4000 Weight 68.039 kg Intake: IV Fluids 1999 IVPB 1999 Constitutional: NAD, normally developed, overweight white female HEENM: atraumatic; sclera/conjunctiva: anicteric/clear; hearing: clinically intact; oropharynx: clear, mucosa moist, poor dentition Neck: soft tissue: no nuchal rigidity; thyroid: normal Pulmonary: clear to auscultation bilaterally, good aeration, no accessory muscle use CV: RR/RR, normal S1S2, no carotid bruit, no jugular venous distention, 2+ B DP/ PT, no edema Abdominal: soft, non-distended, diffusely moderately tender, no rebound/guarding /rigidity, hyperactive bowel sounds, no hepatosplenomegaly or masses, no costovertebral angle tenderness Musculoskeletal: general: grossly intact, non-tender Integumental: numerous track church overlying veins RUE, few on feet (she reports these as "bug bites") Psychiatric orientation: AA&O to PPS affect: pain mood: cooperative eye contact: poor content: not forthcoming responses: timely insight: fair Testing: Lab Results 09/30/17 09/30/17 Range/Units 21:11 21:11 WBC 13.1 H (3.5-10.8) 10^3/ul RBC 5.02 (4.00-5.40) 10^6/ul Hgb 9.4 L (12.0-16.0) g/dl Hct 32 L (35-47) % MCV 63 L (80-97) fL MCH 19 L (27-31) pg MCHC 30 L (31-36) g/dl RDW 19 H (10.5-15) % Plt Count 299 (150-450) 10^3/ul MPV 9.4 (7.4-10.4) um3 Neut % (Auto) 68.8 (38-83) % Lymph % (Auto) 22.1 L (25-47) % Nance % (Auto) 6.1 (0-7) % Eos % (Auto) 1.8 (0-6) % Baso % (Auto) 1.2 (0-2) % Absolute Neuts (auto) 9.0 H (1.5-7.7) 10^3/ul Absolute Lymphs (auto) 2.9 (1.0-4.8) 10^3/ul Absolute Monos (auto) 0.8 (0-0.8) 10^3/ul Absolute Eos (auto) 0.2 (0-0.6) 10^3/ul Absolute Basos (auto) 0.2 (0-0.2) 10^3/ul Absolute Nucleated RBC 0 10^3/ul Nucleated RBC % 0.1 Sodium 138 (135-145) mmol/L Potassium 4.1 (3.5-5.0) mmol/L Chloride 109 (101-111) mmol/L Carbon Dioxide 23 (22-32) mmol/L Anion Gap 6 (2-11) mmol/L BUN 26 H (6-24) mg/dL Creatinine 0.65 (0.51-0.95) mg/dL Est GFR ( Amer) 119.8 (>60) Est GFR (Non-Af Amer) 99.0 (>60) BUN/Creatinine Ratio 40.0 H (8-20) Glucose 150 H (70-100) mg/dL Calcium 8.9 (8.6-10.3) mg/dL Total Bilirubin 0.20 (0.2-1.0) mg/dL AST 27 (13-39) U/L ALT 25 (7-52) U/L Alkaline Phosphatase 114 H (34-104) U/L Total Protein 7.5 (6.4-8.9) g/dL Albumin 4.0 (3.2-5.2) g/dL Globulin 3.5 (2-4) g/dL Albumin/Globulin Ratio 1.1 (1-3) Lipase 43 (11.0-82.0) U/L CT abd/pel WO, personally reviewed: FINDINGS: 5mm nodule in medial left breast appearing smaller than prior exam though is incompletely visualized. Atelectasis and scarring in lung bases. No pleural effusions. Small hiatal hernia. Prior Ruen-Y gastric bypass surgery. Mild biliary ductal dilation, within normal limits for cholecystectomy. Mild ascites. Pancreas, adrenal glands , and spleen are unremarkable. No obstructive uropathy. No AAA. 4cm right ovarian cyst. Indwelling tampon. Moderate stool in the ascending colon and transverse colon. No evidence for diverticulitis or free air. Surgical sutures around the cecum are suggestive of prior appendectomy. A few mildly dilated small bowel loops in the left lower quadrant and right upper quadrant potentially representing a small bowel obstruction or partial small bowel obstruction. A transition point is suggested in the left lower quadrant posteriorly on axial images 42-50. Impression: 42F presenting with severe abdominal pain and CT findings of mild SBO DIAGNOSIS & PLAN Primary SBO : NPO : no NG at this time 2nd no emesis nor distended stomach on CT : IVFs : pain control : trend WBC & temp curves : check lactic acid : IV ciprofloxacin & metronidazole : consider surgical consult this AM : supportive care suspect IV drug abuse : limit narcotics for pain via non-narcotics Secondary L cortical embolic CVA : review meds once reconciled : diez for post-void residual >250 PFO, unrepaired : no acute issues GERD : PO omeprazole Admission Rational: inpatient for SBO not anticipated to be adequately resolved w/i 48h to allow for discharge DVTp: SCDs Code Status: full
[2017-10-01 06:50] LABS: Urine Appearance Clear; Urine Blood Negative (Negative); Urine Color Yellow; Urine Ketones Negative (Negative); Urine Protein Negative (Negative); Urine Specific Gravity 1.054 (1.010-1.030); Urine Urobilinogen Negative (Negative)
[2017-10-01] MEDS ORDERED: Acetaminophen SUPP* 650 MG SUPP PR PRN (07:50)
[2017-10-01] MEDS ORDERED: Albuterol 2.5 MG/3 ML NEB.SOL* (0.083%) INH PRN (07:50)
[2017-10-01] MEDS ORDERED: HYDROmorphone INJ* 1 MG/ML CARPUJECT SYRINGE IV PRN (07:50)
[2017-10-01] MEDS ORDERED: Ondansetron ODT TAB* 4 MG PO PRN (07:52)
[2017-10-01] MEDS ORDERED: metroNIDAZOLE IV 500 MG/100ML* 500 MG/100 ML BAG IVPB SCH (08:00)
[2017-10-01] MEDS ORDERED: NS 0.9% 1000 ML* 1,000 ML IV SCH (08:00)
[2017-10-01] MEDS ORDERED: Ciprofloxacin IV(*) 400 MG in D5W 250 ML BAG* 160 ML IVPB SCH (08:00)
--- NOTE | 2017-10-01 08:26 | RAD ---
Indication: Abdominal pain. Status post Mario-en-Y surgery. Contrast: Administered 85.1 ml of OMNIPAQUE 300 mg/ml CT of the abdomen and pelvis was performed after oral and IV contrast administration. Coronal and sagittal reconstructed images were obtained. In the medial left breast is a small nodule which is incompletely imaged. This was present on prior exam of October 24, 2016. The lung bases otherwise demonstrate no pleural fluid, nodules or masses. The heart demonstrates no pericardial effusion. The liver is normal in size. There are prominent intrahepatic ducts which are likely due to postcholecystectomy state. Patient status post cholecystectomy. The common duct measures up to 11 mm. This appears to taper. The pancreas demonstrates no mass or pancreatic duct dilatation. The spleen is normal in size. Patient demonstrates a small axial-type hiatal hernia. No adrenal lesions are noted. The kidneys demonstrate symmetric nephrograms without focal lesions. No hydronephrosis is noted. No retroperitoneal lymphadenopathy is noted. The uterus and ovaries are unremarkable. A small amount of ascites is noted. Moderately distended loops of small bowel are noted. This is predominantly in the left lower quadrant and right upper quadrant. This is nonspecific. A partial small bowel obstruction should be considered. There is suggestion of a transition point in the left lower quadrant. The possibility of an internal hernia should be considered especially since this is the in the area of prior intestinal anastomosis. Small amount of ascites is noted. Right ovarian cyst measuring up to 4.2 cm is noted. The uterus is otherwise unremarkable. No hernias are identified. IMPRESSION: There is a small hiatal hernia noted. There is a 4 cm right ovarian cyst. There are dilated loops of small bowel in the left lower quadrant and right upper quadrant with suggestion of a zone of transition in the left lower quadrant. This is in the area of anastomosis with some mesenteric lymph nodes. There is whorling of the mesenteric vessels and the possibility of an internal hernia should be considered. Dr. Gandhi was notified of results.
[2017-10-01 08:31] LABS: ABS Basophils 0.1 10^3/ul (0-0.2); ABS Eosinophils 0 10^3/ul (0-0.6); ABS Lymphocytes 1.6 10^3/ul (1.0-4.8); ABS Monocytes 1.1 10^3/ul (0-0.8); ABS Neutrophils 11.6 10^3/ul (1.5-7.7); ABS Nucleated RBC 0 10^3/ul; Eosinophil % 0 % (0-6); Hematocrit 27 % (35-47); Hemoglobin 8.2 g/dl (12.0-16.0); Mean Corpuscular HGB Conc 30 g/dl (31-36); Mean Corpuscular Hemoglobin 19 pg (27-31); Mean Corpuscular Volume 63 fL (80-97); Mean Platelet Volume 8.8 um3 (7.4-10.4); Nucleated Red Blood Cells % 0; Platelet Count 190 10^3/ul (150-450); Red Blood Count 4.36 10^6/ul (4.00-5.40); Red Cell Distribution Width 19 % (10.5-15); White Blood Count 14.3 10^3/ul (3.5-10.8)
[2017-10-01 08:38] LABS: EGFR Non-African American 106.5 (>60)
[2017-10-01] MEDS ORDERED: Bupivacaine 0.25% SDV PF* 10 ML VIAL INJ ONE (09:01)
[2017-10-01] MEDS ORDERED: Buffered Lidocaine 0.9% SYRIN* 5 ML/SYR SYRINGE INTRADERM ONE (09:24)
[2017-10-01] MEDS ORDERED: fentaNYL* 50 MCG/ML 2 ML VIAL (100 MCG VIAL) IV PRN (09:25)
[2017-10-01] MEDS ORDERED: DiMENhydriNATE IV* 50 MG/ML VIAL IV PUSH PRN (09:25)
[2017-10-01] MEDS ORDERED: Levalbuterol 0.63MG/3ML NEB* UNIT OF USE INH PRN (09:25)
[2017-10-01] MEDS ORDERED: Naloxone* 0.4 MG/ML 1 ML VIAL IV PRN (09:25)
[2017-10-01] MEDS ORDERED: PROCHLORPERAZINE INJ 5 MG/ML 2 ML VIAL IV PRN (09:25)
[2017-10-01] MEDS ORDERED: Ondansetron INJ* 2 MG/ML VIAL IV PRN (09:25)
[2017-10-01] MEDS ORDERED: Acetaminophen IV 1GM/100ML * 1,000 MG/100 ML VIAL IVPB ONE (09:25)
--- NOTE | 2017-10-01 09:28 | CONSULT ---
Consult Consult: CC: abdominal pain HPI: 42 yo F known to [facility] from prior surgeries including LRYGB, lap repair converted to laparotomy for bezoar/internal hernia on 10/07/16. She had been in her usual health until last night after eating a salad at 6pm. She developed mid-abdominal radiating to her back pain. She notes worsening of her pain when supine. She has felt most comfortable in a sitting position, leaning forward. She has had associated sweats, nausea, fever and chills. She has had some flatus. Her pain is worse than when she had surgery last year. She presented [place] [facility] and was evaluated by CT. She was admitted to the Hospitalist service with SBO. As the finalized CT interpretation by the Radiologist indicates concern for an internal hernia, surgical consultation was requested. PMH/PSH: L CVA, PFO, chronic LBP, GERD, PCOS LRYGB 2003, lap cholecystectomy and appendectomy 2003, left L 4-5 hemilaminotomy for herniated disc 2008, left ulnar nerve decompression 2013, laparotomy with repair internal hernia/enterotomy removal of bezoar 2016. Meds: adderall, oxycodone, iron, gabapentin, folate, flexeril,B-12, Plavix (not taken for 1 month), lipitor, tylenol, colace All: buprenorphine causes rash; morphine causes nausea SH: disabled, RN; FH: reviewed and non-contributory ROS: as above PE: Vital Signs Temp 96.8 F 09/30/17 20:29 Pulse 38 10/01/17 09:00 Resp 8 10/01/17 09:00 BP 158/88 10/01/17 08:46 Pulse Ox 100 10/01/17 09:00 Gen: sitting up on ER stretcher in mod distress. HEENT: NCAT, EOMI, no otorhinorrhea Neck : symmetrical Lungs: CTA Heart: reg s1s2 Abd: well healed upper midline scar and laparoscopic scars; ND; soft with tenderness in LUQ; no palpable mass or hernia; no hepato/splenomegaly. Ext: warm Laboratory Results - last 24 hr 09/30/17 09/30/17 10/01/17 21:11 21:11 06:29 WBC 13.1 H RBC 5.02 Hgb 9.4 L Hct 32 L MCV 63 L MCH 19 L MCHC 30 L RDW 19 H Plt Count 299 MPV 9.4 Neut % (Auto) 68.8 Lymph % (Auto) 22.1 L [place] % (Auto) 6.1 Eos % (Auto) 1.8 Baso % (Auto) 1.2 Absolute Neuts (auto) 9.0 H Absolute Lymphs (auto) 2.9 Absolute Monos (auto) 0.8 Absolute Eos (auto) 0.2 Absolute Basos (auto) 0.2 Absolute Nucleated RBC 0 Nucleated RBC % 0.1 Sodium 138 Potassium 4.1 Chloride 109 Carbon Dioxide 23 Anion Gap 6 BUN 26 H Creatinine 0.65 Est GFR ( Amer) 119.8 Est GFR (Non-Af Amer) 99.0 BUN/Creatinine Ratio 40.0 H Glucose 150 H Lactic Acid Calcium 8.9 Total Bilirubin 0.20 AST 27 ALT 25 Alkaline Phosphatase 114 H Total Protein 7.5 Albumin 4.0 Globulin 3.5 Albumin/Globulin Ratio 1.1 Lipase 43 Urine Color Yellow Urine Appearance Clear Urine pH 5.0 Ur Specific Sharon 1.054 H Urine Protein Negative Urine Ketones Negative Urine Blood Negative Urine Nitrate Negative Urine Bilirubin Negative Urine Urobilinogen Negative Ur Leukocyte Esterase Negative Urine Glucose Negative 10/01/17 10/01/17 10/01/17 07:57 08:05 08:05 WBC 14.3 H RBC 4.36 Hgb 8.2 L Hct 27 L MCV 63 L MCH 19 L MCHC 30 L RDW 19 H Plt Count 190 MPV 8.8 Neut % (Auto) 80.9 Lymph % (Auto) 11.0 L [place] % (Auto) 7.5 H Eos % (Auto) 0 Baso % (Auto) 0.6 Absolute Neuts (auto) 11.6 H Absolute Lymphs (auto) 1.6 Absolute Monos (auto) 1.1 H Absolute Eos (auto) 0 Absolute Basos (auto) 0.1 Absolute Nucleated RBC 0 Nucleated RBC % 0 Sodium 137 Potassium 4.4 Chloride 106 Carbon Dioxide 23 Anion Gap 8 BUN 17 Creatinine 0.61 Est GFR ( Amer) 128.9 Est GFR (Non-Af Amer) 106.5 BUN/Creatinine Ratio 27.9 H Glucose 111 H Lactic Acid 2.3 H* Calcium 8.8 Total Bilirubin AST ALT Alkaline Phosphatase Total Protein Albumin Globulin Albumin/Globulin Ratio Lipase Urine Color Urine Appearance Urine pH Ur Specific Sharon Urine Protein Urine Ketones Urine Blood Urine Nitrate Urine Bilirubin Urine Urobilinogen Ur Leukocyte Esterase Urine Glucose CT abdomen/pelvis imaged reviewed. Imp: 42 yo F with h/o LRYGB and now severe abdominal pain with CT showing SBO likely due to internal hernia. Plan/Recommendation: The findings were discussed with the patient. She will need surgery to resolve this. I recommend laparoscopy, possible laparotomy, for reduction/repair of internal hernia. This may also involve lysis of adhesions, bowel resection, and gastrostomy. I discussed the nature of the procedure, indications, risks, benefits, alternatives and option of no treatment. Risks explained including, not limited to: bleeding, infection, pain , scarring, blood clots, pneumonia, visceral injury, risks of general anesthesia and even . All questions have been answered. She stated understanding and agrees to proceed.
[2017-10-01] MEDS ORDERED: Midazolam* 1 MG/ML 2 ML VIAL (2 MG) ONE (09:32)
[2017-10-01] MEDS ORDERED: fentaNYL* 50 MCG/ML 2 ML VIAL (100 MCG VIAL) ONE ×4 (09:32→12:34)
[2017-10-01] MEDS ORDERED: Cisatracurium* 2 MG/ML MDV 5 ML ONE ×2 (09:33→11:18)
[2017-10-01] MEDS ORDERED: Lidocaine 2% PF * 5 ML VIAL ONE (10:02)
[2017-10-01] MEDS ORDERED: Propofol* 10 MG/ML 20 ML BTL IV PUSH ONE (10:03)
[2017-10-01] MEDS ORDERED: Succinylcholine* 20 MG/ML 10 ML VIAL ONE (10:03)
[2017-10-01] MEDS ORDERED: Dexamethasone IV* 4 MG/ML 1 ML (4 MG) ONE (10:03)
[2017-10-01] MEDS ORDERED: Famotidine IV* 10 MG/ML 2 ML (20 mg) ONE (10:03)
[2017-10-01] MEDS ORDERED: HYDROmorphone INJ* 0.5 MG/0.5 ML SYRINGE ONE (10:38)
[2017-10-01] MEDS ORDERED: Ketorolac INJ* 30 MG/ML 1 ML VIAL ONE (11:41)
[2017-10-01] MEDS ORDERED: Ondansetron INJ* 2 MG/ML VIAL ONE (11:45)
--- NOTE | 2017-10-01 11:46 | OP ---
Operative Report - Blank - Operative Report Date of Operation: 10/01/17 Note: Brief Operative Note: Pre-op: Abdominal pain Post-op: Abdominal pain, Internal hernia, adhesions Procedure: Diagnostic laparoscopy converted to open laparotomy with lysis of adhesions and internal hernia repair Surgeon: Dr. gonzales Post Office Clerk: OR staff Anesthesia: GETA EBL: Minimal Catheter: Rincon to gravity Drains: None Specimen: None Findings: See dictated op note
[2017-10-01] MEDS ORDERED: HYDROmorphone PCA *HIGH DOSE* 100 MG/20 ML PCA.SYRING PCA SCH (12:00)
[2017-10-01] MEDS: HYDROmorphone INJ* 0.5 MG/0.5 ML SYRINGE IV PRN ×2 (12:16→12:27)
[2017-10-01] MEDS ORDERED: Acetaminophen IV 1GM/100ML * 100 ML ONE (12:19)
[2017-10-01] MEDS ORDERED: HYDROmorphone PCA* 20 MG/20 ML PCA.SYRING ONE (13:23)
[2017-10-01] MEDS ORDERED: HYDROmorphone PCA* 20 MG/20 ML PCA.SYRING PCA SCH (15:00)
[2017-10-01] MEDS: Ketorolac INJ* 15 MG/ML 1 ML VIAL IV PRN (16:45)
[2017-10-01] MEDS: Pantoprazole IV* 40 MG IV SCH (16:56)
[2017-10-01] MEDS: metroNIDAZOLE IV 500 MG/100ML* 500 MG/100 ML BAG IVPB SCH ×2 (16:57→18:33)
--- NOTE | 2017-10-01 18:56 | PN ---
Subjective Date of Service: 10/01/17 Interval History: Pt feels well, some post op abd pain noted Objective Active Medications: Acetaminophen (Tylenol Supp*) 650 mg VA Q6H PRN PRN Reason: FEVER/PAIN Last Admin: 10/01/17 08:28 Dose: 650 mg Albuterol (Ventolin 2.5 Mg/3 Ml Neb.Joan*) 2.5 mg INH Q2H PRN PRN Reason: SOB/WHEEZING Hydromorphone HCl (Dilaudid Injic*) 1 mg IV Q3H PRN PRN Reason: PAIN Ciprofloxacin 400 mg/ Dextrose 200 mls @ 200 mls/hr IVPB Q12H MARK Last Admin: 10/01/17 08:28 Dose: 200 mls/hr Sodium Chloride (Ns 0.9% 1000 Ml*) 1,000 mls @ 125 mls/hr IV PER RATE [facility] Last Admin: 10/01/17 08:28 Dose: 125 mls/hr Lactated Ringer's (Lactated Ringers 1000 Ml Bag*) 1,000 mls @ 125 mls/hr IV PER RATE [facility] Metronidazole/Sodium Chloride (Flagyl 500 Mg Ivpb*) 500 mg in 100 mls @ 100 mls /hr IVPB 0200,1000,1800 MARK Last Admin: 10/01/17 18:33 Dose: 100 mls/hr Hydromorphone HCl (Dilaudid Exterior Designer*) 20 mg in 20 mls @ 0 mls/hr ROOFING TILE SORTER .change Q24H MARK; Protocol Ketorolac Tromethamine (Toradol Inj*) 15 mg IV Q6H PRN PRN Reason: PAIN Last Admin: 10/01/17 16:45 Dose: 15 mg Ondansetron HCl (Zofran Odt Tab*) 4 mg PO Q6H PRN PRN Reason: n/v Pantoprazole Sodium (Protonix Iv*) 40 mg IV DAILY [facility] Last Admin: 10/01/17 16:56 Dose: Not Given Vital Signs - 8 hr 10/01/17 10/01/17 10/01/17 12:09 12:10 12:11 Temperature 97.2 F Pulse Rate 80 68 79 Respiratory 16 16 20 Rate Blood Pressure 163/101 147/100 133/93 (mmHg) O2 Sat by Pulse 100 100 Oximetry 10/01/17 10/01/17 10/01/17 12:15 12:16 12:21 Temperature Pulse Rate 61 68 Respiratory 18 20 19 Rate Blood Pressure 138/97 155/100 (mmHg) O2 Sat by Pulse 100 100 Oximetry 10/01/17 10/01/17 10/01/17 12:25 12:27 12:31 Temperature Pulse Rate 53 52 Respiratory 18 14 18 Rate Blood Pressure 147/100 146/87 (mmHg) O2 Sat by Pulse 100 100 Oximetry 10/01/17 10/01/17 10/01/17 12:35 12:41 12:43 Temperature Pulse Rate 44 46 Respiratory 18 16 17 Rate Blood Pressure 161/91 166/82 (mmHg) O2 Sat by Pulse 100 100 Oximetry 10/01/17 10/01/17 10/01/17 12:46 13:00 13:10 Temperature 98.1 F Pulse Rate 42 44 45 Respiratory 15 16 18 Rate Blood Pressure 175/80 162/89 160/98 (mmHg) O2 Sat by Pulse 100 100 100 Oximetry 10/01/17 10/01/17 10/01/17 13:15 13:30 13:40 Temperature Pulse Rate 47 44 46 Respiratory 17 15 14 Rate Blood Pressure 159/88 156/93 142/89 (mmHg) O2 Sat by Pulse 100 100 100 Oximetry 10/01/17 10/01/17 10/01/17 13:45 13:50 13:55 Temperature Pulse Rate 46 51 48 Respiratory 15 16 16 Rate Blood Pressure 156/83 149/87 157/91 (mmHg) O2 Sat by Pulse 100 100 100 Oximetry 10/01/17 10/01/17 10/01/17 14:00 14:05 14:06 Temperature Pulse Rate 49 48 Respiratory 15 14 20 Rate Blood Pressure 149/88 148/91 (mmHg) O2 Sat by Pulse 100 100 100 Oximetry 10/01/17 10/01/17 10/01/17 14:08 14:10 14:15 Temperature 98.6 F Pulse Rate 50 51 55 Respiratory 20 15 18 Rate Blood Pressure 148/91 132/82 137/78 (mmHg) O2 Sat by Pulse 100 100 100 Oximetry 10/01/17 10/01/17 10/01/17 14:48 15:53 17:11 Temperature 98.6 F 97.6 F Pulse Rate 51 55 Respiratory 16 16 16 Rate Blood Pressure 138/77 131/59 (mmHg) O2 Sat by Pulse 100 100 Oximetry Oxygen Devices in Use Now: Nasal Cannula Appearance: 42 yo F in nAD, AAOx3 Eyes: No Scleral Icterus, PERRLA Ears/Nose/Mouth/Throat: NL Teeth, Lips, Gums, Mucous Membranes Moist Neck: NL Appearance and Movements; NL JVP, Trachea Midline Respiratory: Symmetrical Chest Expansion and Respiratory Effort, Clear to Auscultation Cardiovascular: NL Sounds; No Murmurs; No JVD, RRR Abdominal: - - post p, BS hypoactive, mild posy op tenderness, no rebound, no guarding, post op dressings not removed Lymphatic: No Cervical Adenopathy Extremities: No Edema, No Clubbing, Cyanosis Skin: No Nodules or Sclerosis Neurological: Alert and Oriented x 3, - - R facial droop , R arm weakness at 4+/ 5, R leg minimally weaker than L Result Diagrams: 10/01/17 08:05 10/01/17 08:05 Additional Lab and Data: Lab Results 09/30/17 09/30/17 Range/Units 21:11 21:11 WBC 13.1 H (3.5-10.8) 10^3/ul RBC 5.02 (4.00-5.40) 10^6/ul Hgb 9.4 L (12.0-16.0) g/dl Hct 32 L (35-47) % MCV 63 L (80-97) fL MCH 19 L (27-31) pg MCHC 30 L (31-36) g/dl RDW 19 H (10.5-15) % Plt Count 299 (150-450) 10^3/ul MPV 9.4 (7.4-10.4) um3 Neut % (Auto) 68.8 (38-83) % Lymph % (Auto) 22.1 L (25-47) % [place] % (Auto) 6.1 (0-7) % Eos % (Auto) 1.8 (0-6) % Baso % (Auto) 1.2 (0-2) % Absolute Neuts (auto) 9.0 H (1.5-7.7) 10^3/ul Absolute Lymphs (auto) 2.9 (1.0-4.8) 10^3/ul Absolute Monos (auto) 0.8 (0-0.8) 10^3/ul Absolute Eos (auto) 0.2 (0-0.6) 10^3/ul Absolute Basos (auto) 0.2 (0-0.2) 10^3/ul Absolute Nucleated RBC 0 10^3/ul Nucleated RBC % 0.1 Sodium 138 (135-145) mmol/L Potassium 4.1 (3.5-5.0) mmol/L Chloride 109 (101-111) mmol/L Carbon Dioxide 23 (22-32) mmol/L Anion Gap 6 (2-11) mmol/L BUN 26 H (6-24) mg/dL Creatinine 0.65 (0.51-0.95) mg/dL Est GFR ( Amer) 119.8 (>60) Est GFR (Non-Af Amer) 99.0 (>60) BUN/Creatinine Ratio 40.0 H (8-20) Glucose 150 H (70-100) mg/dL Calcium 8.9 (8.6-10.3) mg/dL Total Bilirubin 0.20 (0.2-1.0) mg/dL AST 27 (13-39) U/L ALT 25 (7-52) U/L Alkaline Phosphatase 114 H (34-104) U/L Total Protein 7.5 (6.4-8.9) g/dL Albumin 4.0 (3.2-5.2) g/dL Globulin 3.5 (2-4) g/dL Albumin/Globulin Ratio 1.1 (1-3) Lipase 43 (11.0-82.0) U/L Assess/Plan/Problems-Billing Assessment: Mr. Mejia is a 42 yo female with a PMH of CVA, chronic low back pain and hyperlipidemia who was admitted with SBO found to be secondary to adhesions - Patient Problems (1) SBO (small bowel obstruction) Comment: POD # 0 s/p diagnostic laparoscopy converted to open laparotomy with lysis of adhesions and internal hernia repair. Management per surgical team. (2) Bradycardia Comment: asymptomatic, sinus. cont pulse oxymetry with alert set up for HR<45, call hospitalist for R<45 no need for further intervention for HR>45 (3) History of CVA (cerebrovascular accident) Comment: Embolic CVA with PFO (not repaired). Clopidogrel to be restarted by surgery soon as possible post op (4) DVT prophylaxis Comment: Heparin SQ is recommended if OK with surgery Status and Disposition: hospitalist service will sign off, please call if needed
--- NOTE | 2017-10-01 21:02 | OP ---
CC: Elijah Thompson MD * DATE OF OPERATION: 10/01/17 - ROOM #340 DATE OF : 71 SURGEON: Marcial Epperson MD PHOTOGRAPHER AERIAL: MARYANN Adams ANESTHESIOLOGIST: Dr. Turpin. ANESTHESIA: General endotracheal. PRE-OP DIAGNOSES: 1. Small bowel obstruction. 2. Internal hernia. 3. History of gastric bypass. POST-OP DIAGNOSES: 1. Small bowel obstruction. 2. Internal hernia. 3. History of gastric bypass. OPERATIVE PROCEDURE: Diagnostic laparoscopy, lysis of adhesions, laparotomy, repair of internal hernia. ESTIMATED BLOOD LOSS: Less than 20 mL. IV FLUIDS: 1.7 L crystalloid. SPECIMEN: None. DRAINS: None. COMPLICATIONS: None. COUNTS: The instrument, needle, sponge counts were correct. OPERATIVE FINDINGS: Adhesive band from omentum to the anterior abdominal wall. Internal hernia in the retro-darien limb space with proximal jejunal limb coming to the right side of the Darien limb. DESCRIPTION OF PROCEDURE: The patient was brought to the operating room, placed in table supine. Sequential compression devices were placed on both lower extremities and general anesthesia was administered. The patient had a Rincon catheter indwelling. She was positioned and padded appropriately. The patient's abdomen was prepped and draped in the usual sterile fashion and time- out was performed. Local anesthetic was infiltrated into the skin and soft tissue prior to making the laparoscopic incisions. Entry to the abdomen was through an infraumbilical vertical incision and using open technique, the peritoneal cavity was accessed. 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 A 5 mm trocar was placed. Carbon dioxide was insufflated to pressure of 15 mmHg. Inspection revealed that there was a adhesion directly superior to the umbilicus. This appeared to be omentum to the anterior abdominal wall. The 5 mm trocars were placed in the right upper quadrant and lower midline. LigaSure was used to lyse the adhesion. The bowel was inspected and it appeared pink and viable. The cecum was identified in the right upper quadrant and appendix was noted to be absent. The ileum was run proximally from the ileocecal valve and there were some interloop adhesions noted. Ultimately in the jejunum, the anatomy became unclear because of additional interloop adhesions and there was suspicion of a persisting internal hernia. Therefore, the decision was made to perform laparotomy. The ports were removed and midline laparotomy was undertaken through the prior upper midline incision excising the scar. There was a small incisional hernia defect noted approximately 2 to 3 cm. The sac of this was resected. The abdominal cavity once entered was noted to have moderate amount of chylous ascites and Gary retractor was used as well as Chau retractors. Small bowel was eviscerated. Small bowel was run proximally from the ileocecal valve and aside from a couple of areas of interloop adhesions, they did not appear to be obstructing. The small bowel was otherwise normal up to the jejunojejunostomy. It was noted that the Darien limb was lying to the left side of the abdomen with proximal jejunum from the jejunojejunostomy lying to the right side of that Darien limb. There was a defect in the retro-darien limb, which was a site of potential herniation; therefore, this was closed. Sutures of 3-0 silk were placed to suture the mesentry of the Darien limb down to the retroperitoneum keeping to the left side of the ligament of Treitz and this was continued on to the transverse colon mesentry incorporating a portion of the omentum on that side, which was already adherent. Reinforcing sutures were placed on the opposite side of the Darien limb mesentry again to the retroperitoneum. After completing this repair, inspection was performed to assure that the Darien limb was normal in appearance and that there were no additional hernia defects, in particular at the jejunojejunostomy site. After confirming proper orientation of the bowel, the bowel was returned to the abdominal cavity. The midline incision was closed with a running #1 PDS suture. The infraumbilical incision was closed with a 0 Vicryl suture to approximate the fascia. Once we irrigated, hemostasis was assured and skin was closed with flor. Dressings were applied. The patient tolerated the procedure well, was extubated and transferred to the recovery room in stable condition. [id number]/[facility] #: [id number] RAMSES
[2017-10-02] MEDS: Ketorolac INJ* 15 MG/ML 1 ML VIAL IV PRN ×2 (08:44→20:52)
[2017-10-02] MEDS: Pantoprazole IV* 40 MG IV SCH (08:45)
[2017-10-02] MEDS ORDERED: Cyclobenzaprine TAB* 10 MG PO PRN (09:01)
--- NOTE | 2017-10-02 09:08 | PN ---
Progress Note - Progress Note Date of Service: 10/02/17 SOAP: Subjective: Feels better. Pain controlled by TOBACCO CURER. No N/V/flatus. Results of surgery discussed. Objective: Vital Signs Temp 98.5 F 10/02/17 07:37 Pulse 65 10/02/17 07:37 Resp 16 10/02/17 07:37 BP 128/75 10/02/17 07:37 Pulse Ox 99 10/02/17 07:37 Gen: lying in bed; NAD Abd: ND; soft; dressings c/d/i; tender at incisions. Intake & Output 10/01/17 10/02/17 10/02/17 18:59 06:59 18:59 Intake Total 2674 Output Total 1900 Balance 774 Weight 150 lb Intake: IV Fluids 1574 LR 997 NS (0.9%) 577 IVPB 100 ABX - FLAGYL 100 Oral 1000 Output: [place] 1900 Assessment: POD#1 s/p laparotomy/DORETHA/repair internal hernia. Plan: Adv diet as tolerated. PO meds. D/c rg. increase activity/pulm toilet.
[2017-10-02] MEDS: Folic Acid TAB* 1 MG PO SCH (09:45)
[2017-10-02] MEDS: Gabapentin CAP(*) 400 MG PO SCH ×3 (09:46→20:53)
[2017-10-02] MEDS: Cyanocobalamin TAB* 500 MCG PO SCH (09:46)
[2017-10-02 11:08] LABS: ABS Basophils 0 10^3/ul (0-0.2); ABS Eosinophils 0 10^3/ul (0-0.6); ABS Lymphocytes 1.9 10^3/ul (1.0-4.8); ABS Monocytes 0.8 10^3/ul (0-0.8); ABS Neutrophils 5.2 10^3/ul (1.5-7.7); ABS Nucleated RBC 0 10^3/ul; Eosinophil % 0.3 % (0-6); Hematocrit 22 % (35-47); Hemoglobin 6.8 g/dl (12.0-16.0); Lymphocyte % 23.7 % (25-47); Mean Corpuscular HGB Conc 31 g/dl (31-36); Mean Corpuscular Hemoglobin 19 pg (27-31); Mean Corpuscular Volume 62 fL (80-97); Mean Platelet Volume 8.6 um3 (7.4-10.4); Nucleated Red Blood Cells % 0; Platelet Count 157 10^3/ul (150-450); Red Blood Count 3.61 10^6/ul (4.00-5.40); Red Cell Distribution Width 18 % (10.5-15); White Blood Count 7.9 10^3/ul (3.5-10.8)
[2017-10-02 11:16] LABS: INR 1.12 (0.77-1.02)
[2017-10-02 11:17] LABS: EGFR Non-African American 112.9 (>60)
[2017-10-02] MEDS: Amphetamine MIXED SALT TAB* 10 MG TAB PO SCH ×3 (13:15→20:48)
[2017-10-02] MEDS: Heparin VIAL(*) 5000 UNITS/ML VIAL (FIVE THOUSAND) SUBCUT SCH ×2 (14:36→21:04)
[2017-10-02] MEDS ORDERED: Atorvastatin* 10 MG TAB PO SCH (21:00)
[2017-10-03] MEDS: Heparin VIAL(*) 5000 UNITS/ML VIAL (FIVE THOUSAND) SUBCUT SCH ×2 (05:21→13:25)
[2017-10-03] MEDS: Amphetamine MIXED SALT TAB* 10 MG TAB PO SCH ×2 (07:45→13:24)
[2017-10-03] MEDS: Cyanocobalamin TAB* 500 MCG PO SCH (07:45)
[2017-10-03] MEDS: Gabapentin CAP(*) 400 MG PO SCH ×2 (07:45→13:24)
[2017-10-03] MEDS: Folic Acid TAB* 1 MG PO SCH (07:45)
[2017-10-03] MEDS: Pantoprazole IV* 40 MG IV SCH (07:46)
[2017-10-03] MEDS: Ketorolac INJ* 15 MG/ML 1 ML VIAL IV PRN ×2 (07:47→14:49)
[2017-10-03] MEDS ORDERED: Acetaminophen TAB* 325 MG PO PRN (07:53)
--- NOTE | 2017-10-03 07:53 | PN ---
Progress Note - Progress Note Date of Service: 10/03/17 Note: Surgery Ms. Mejia reports she feels better, she is tolerating solid food. She denies flatus or BM, but also N/V. She would like tylenol for her headache. Vital Signs 10/02/17 10/02/17 10/02/17 08:00 09:46 10:00 Temperature Pulse Rate Respiratory 18 18 18 Rate Blood Pressure (mmHg) O2 Sat by Pulse 96 93 Oximetry 10/02/17 10/02/17 10/02/17 11:44 12:00 13:13 Temperature 98.4 F Pulse Rate 89 Respiratory 16 18 18 Rate Blood Pressure 122/79 (mmHg) O2 Sat by Pulse 98 96 Oximetry 10/02/17 10/02/17 10/02/17 13:16 14:00 15:57 Temperature 98.2 F Pulse Rate 86 Respiratory 18 18 16 Rate Blood Pressure 124/69 (mmHg) O2 Sat by Pulse 96 97 Oximetry 10/02/17 10/02/17 10/02/17 15:59 17:27 18:00 Temperature Pulse Rate Respiratory 16 18 18 Rate Blood Pressure (mmHg) O2 Sat by Pulse 96 98 Oximetry 10/02/17 10/02/17 10/02/17 20:44 20:53 21:05 Temperature 98.6 F Pulse Rate 93 Respiratory 16 16 16 Rate Blood Pressure 122/77 (mmHg) O2 Sat by Pulse 97 97 Oximetry 10/02/17 10/02/17 10/02/17 21:07 22:53 22:54 Temperature Pulse Rate Respiratory 16 16 16 Rate Blood Pressure (mmHg) O2 Sat by Pulse 96 Oximetry 10/02/17 10/03/17 10/03/17 23:35 01:00 03:00 Temperature 98.3 F Pulse Rate 94 Respiratory 16 16 16 Rate Blood Pressure 128/77 (mmHg) O2 Sat by Pulse 100 95 97 Oximetry 10/03/17 10/03/17 10/03/17 03:34 05:00 05:04 Temperature 98.5 F Pulse Rate 81 84 Respiratory 16 18 16 Rate Blood Pressure 113/73 (mmHg) O2 Sat by Pulse 97 98 97 Oximetry Abd: good BS, soft, non-tender except near incision. Incision: clean and dry Intake & Output 10/02/17 10/03/17 10/03/17 22:59 06:59 14:59 Intake Total 1413 1100 Output Total 650 1000 Balance 763 100 Intake: IV Fluids 973 1000 LR 973 1000 Oral 440 100 Output: Urine 650 1000 Other: Estimated Void Large # Voids 1 Laboratory Results - last 24 hr 10/02/17 10/02/17 10/02/17 10:53 10:53 10:53 WBC 7.9 RBC 3.61 L Hgb 6.8 L Hct 22 L MCV 62 L MCH 19 L MCHC 31 RDW 18 H Plt Count 157 MPV 8.6 Neut % (Auto) 64.9 Lymph % (Auto) 23.7 L Crane % (Auto) 10.7 H Eos % (Auto) 0.3 Baso % (Auto) 0.4 Absolute Neuts (auto) 5.2 Absolute Lymphs (auto) 1.9 Absolute Monos (auto) 0.8 Absolute Eos (auto) 0 Absolute Basos (auto) 0 Absolute Nucleated RBC 0 Nucleated RBC % 0 INR (Anticoag Therapy) 1.12 H APTT 28.5 BUN 12 Creatinine 0.58 Est GFR ( Amer) 136.6 Est GFR (Non-Af Amer) 112.9 POD# s/p DORETHA, improving. Will change to PO pain meds, but have IV pain med available for break through. Home when able to manage pain.
[2017-10-03] MEDS ORDERED: Clopidogrel TAB* 75 MG PO SCH (09:00)
[2017-10-03] MEDS: oxyCODONE TAB* 5 MG TAB PO PRN ×2 (09:11→14:50)
[2017-10-03 13:17] VITALS: BP 114/91
== END 2017-10-03 15:51 | disposition home or self-care (01) | DRG 336 ==
LOC: ED 20:24 → SSU 10-01 08:23
PROVIDERS: ADMIT Hospitalist; ATTEND Surgery
PROC: 0DQV0ZZ Repair Mesentery, Open Approach (ICD-10-PCS; 2017-10-01)
PROC: 0DNU4ZZ Release Omentum, Percutaneous Endoscopic Approach (ICD-10-PCS; principal; 2017-10-01 09:13)
DX: K56.50 Intestinal adhesions [bands], unspecified as to partial versus complete obstruction (principal); Q21.1 Atrial septal defect; I95.89 Other hypotension; K21.9 Gastro-esophageal reflux disease without esophagitis; E28.2 Polycystic ovarian syndrome; R00.1 Bradycardia, unspecified; Z86.73 Personal history of transient ischemic attack (TIA), and cerebral infarction without residual deficits; Z98.84 Bariatric surgery status; Z79.1 Long term (current) use of non-steroidal anti-inflammatories (NSAID); Z79.891 Long term (current) use of opiate analgesic; Z79.899 Other long term (current) drug therapy; Z88.5 Allergy status to narcotic agent; Z88.8 Allergy status to other drugs, medicaments and biological substances; Z87.891 Personal history of nicotine dependence; Z83.3 Family history of diabetes mellitus; Z82.49 Family history of ischemic heart disease and other diseases of the circulatory system; Z83.42 Family history of familial hypercholesterolemia
CPT/HCPCS: 36415; 74177; 80048; 80053; 80307; 80324; 80359; 80364; 81003; 81025; 82565; 83605; 83690; 84520; 85025; 85610; 85730; 93005; 99211; 99285; A9270-GY; G0463; G0480; J0330; J0744; J1100; J1170; J1200; J1644; J1885; J2250; J2270; J2405; J2704; J3010; J3490; Q9967